=== PATIENT | female | born 1995 | race Two or more races ===

== ENCOUNTER → 2021-12-31 | Outpatient (CLI) | payer BC, SELFPAY ==
[2021-12-31 13:35] LABS: Prolactin 9.4 ng/mL; Thyroid Stim Hormone (TSH) 3.72 uIU/mL (0.358-3.74)
[2022-01-04 19:50] LABS: Testosterone Free 1.2 pg/mL (0.0-4.2)
== END | disposition home or self-care (01) ==
PROVIDERS: Visit Provider Obstetrics & Gynecology
DX: N97.9 Female infertility, unspecified (principal)
CPT/HCPCS: 36415; 82627; 84146; 84402; 84443; 82626

== ENCOUNTER → 2022-01-05 | Outpatient (CLI) | payer SELFPAY, BC ==
--- NOTE | 2022-01-05 15:50 | US_ITS ---
STUDY: ULTRASOUND OF THE FEMALE PELVIS - COMPLETE REASON FOR EXAM: Female, 26 years old. female infertility TECHNIQUE: Endovaginal. Transvaginal US was obtained to better visualized the ovaries. COMPARISON: None. FINDINGS: The uterus is anteverted and is in a midline position. The uterus measures 7 x 4.8 cm. Normal uterine cervix. The endometrium measures 4.2 mm in thickness, and is heterogeneous (striated). There is no demonstrated endometrial mass. There is no demonstrated myometrial mass. I.U.D. - The patient does not have an I.U.D. The right ovary is visualized. The right ovary measures 3.4 x 3.3 cm. There is no right ovarian cyst or ovarian mass. There is no visualized right adnexal mass or complex lesion. There is normal arterial and normal venous vascularity. There are physiologic follicles on the right. The largest measures 10 mm. The left ovary is visualized. The left ovary measures 4.2 x 2.3 cm. There is no left ovarian cyst or ovarian mass. There is no visualized left adnexal mass or complex lesion. There is normal arterial and normal venous vascularity.There are physiologic follicles on the left. There is minimal fluid in the cul-de-sac. Urinary bladder volume is 351 cc. US/Pelvic (Non ) IMPRESSION: There is minimal fluid in the cul-de-sac. There are physiologic follicles of both ovaries. Electronically Signed: Isac Nolan MD at 17:47 EDT ,
--- NOTE | 2022-01-05 15:50 | US_ITS ---
STUDY: ULTRASOUND OF THE FEMALE PELVIS - COMPLETE REASON FOR EXAM: Female, 26 years old. female infertility TECHNIQUE: Endovaginal. Transvaginal US was obtained to better visualized the ovaries. COMPARISON: None. FINDINGS: The uterus is anteverted and is in a midline position. The uterus measures 7 x 4.8 cm. Normal uterine cervix. The endometrium measures 4.2 mm in thickness, and is heterogeneous (striated). There is no demonstrated endometrial mass. There is no demonstrated myometrial mass. I.U.D. - The patient does not have an I.U.D. The right ovary is visualized. The right ovary measures 3.4 x 3.3 cm. There is no right ovarian cyst or ovarian mass. There is no visualized right adnexal mass or complex lesion. There is normal arterial and normal venous vascularity. There are physiologic follicles on the right. The largest measures 10 mm. The left ovary is visualized. The left ovary measures 4.2 x 2.3 cm. There is no left ovarian cyst or ovarian mass. There is no visualized left adnexal mass or complex lesion. There is normal arterial and normal venous vascularity.There are physiologic follicles on the left. There is minimal fluid in the cul-de-sac. Urinary bladder volume is 351 cc. US/Transvaginal Non- IMPRESSION: There is minimal fluid in the cul-de-sac. There are physiologic follicles of both ovaries. Electronically Signed: Isac Nolan MD at 17:47 EDT ,
== END | disposition home or self-care (01) ==
PROVIDERS: Referring Provider Obstetrics & Gynecology; Visit Provider Obstetrics & Gynecology
DX: N97.9 Female infertility, unspecified (principal)
CPT/HCPCS: 76830; 76856

== ENCOUNTER → 2022-09-14 | Outpatient (CLI) | payer BC, SELFPAY ==
[2022-09-21 19:09] LABS: HPV Reflexed? NOT INDICATED
== END | disposition home or self-care (01) ==
PROVIDERS: Visit Provider Registered Nurse
DX: Z12.4 Encounter for screening for malignant neoplasm of cervix (principal)
CPT/HCPCS: 88175; G0145

== ENCOUNTER → 2022-10-30 | Outpatient (CLI) | payer BC, SELFPAY ==
[2022-10-30 12:37] LABS: Amphetamine Urine VISTA NEGATIVE (<1000 ng/mL); Barbiturate Urine VISTA NEGATIVE (< 200 ng/mL); Benzodiazepine Urine VISTA NEGATIVE (< 200 ng/mL); Cocaine Urine VISTA NEGATIVE (< 300 ng/mL); Ecstacy Urine VISTA NEGATIVE (< 500 ng/mL); Methadone Urine VISTA NEGATIVE (< 300 ng/mL); PCP Urine VISTA NEGATIVE (< 25 ng/mL); THC Urine VISTA POSITIVE (< 50 ng/mL); Vista UDS pH Range 7
[2022-10-30 12:39] LABS: Absolute Lymphocyte Count 1.97 X10^3/uL (0.83-4.51); Absolute Neutrophil Count 9.2 X10^3/uL (2.0-7.7); Basophil# 0.05 X10^3/uL; Basophil% 0.4 % (0-1); Eosinophil# 0.22 X10^3/uL; Eosinophils% 1.8 % (0-5); Hematocrit 40.7 % (37-47); Hemoglobin 13.9 g/dL (12.0-15.0); Lymphocyte # 1.97 X10^3/ul (0.83-4.51); Lymphocyte % 16.3 % (19-41); Mean Corp Hgb Conc 34.2 g/dL (32-36); Mean Corpuscular Hgb 30.4 pg (27.0-32.0); Mean Corpuscular Volume 89.1 fL (81-99); Mean Platelet Vol. 9.7 fl (6.2-12.0); Monocyte# 0.59 X10^3/uL; Monocyte% 4.9 % (0-10); NRBC Flagged by Analyzer 0 % (0-5); Neutrophil # 9.21 X10^3/uL (2.7-7.7); Neutrophil % 76.1 % (47-70); Platelet Count 270 K/mm3 (150-450); RBC Distribution Width CV 13.1 % (11.6-14.6); RBC Distribution Width SD 42.8 fl (35.1-43.9); Red Blood Count 4.57 M/mm3 (4.2-5.4); White Blood Count 12.1 K/mm3 (4.4-11.0)
[2022-10-30 13:15] LABS: NATERA MAILED SPECIMEN
[2022-10-30 13:18] LABS: Glucose Challenge Gest 1H 50g 122 mg/dL (70-140)
[2022-10-30 13:49] LABS: HIV - WCH Non-Reactive (Nonreactive); Hepatitis B Surface Antigen Non-Reactive (Nonreactive); Hepatitis C Antibody Non-Reactive (Nonreactive); Rubella IgG Reactive (Nonreactive); Syphilis Antibodies Non-reactive
[2022-11-02 22:06] LABS: Chlamydia By Nucleic Acid AMP Negative (Negative)
[2022-11-03 07:50] LABS: Gonococcus By Nucleic Acid AMP Negative (Negative)
== END | disposition home or self-care (01) ==
PROVIDERS: Referring Provider Obstetrics & Gynecology; Visit Provider Obstetrics & Gynecology
DX: O99.320 Drug use complicating pregnancy, unspecified trimester (principal); F19.90 Other psychoactive substance use, unspecified, uncomplicated
CPT/HCPCS: 36415; 80307; 82950; 85025; 86703; 86762; 86780; 86803; 86850; 86900; 86901; 87086; 87340; 87491; 87591

== ENCOUNTER → 2023-03-05 | Outpatient (CLI) | payer BC, SELFPAY ==
[2023-03-05 13:40] LABS: Absolute Lymphocyte Count 1.66 X10^3/uL (0.83-4.51); Absolute Neutrophil Count 11.3 X10^3/uL (2.0-7.7); Basophil# 0.08 X10^3/uL; Basophil% 0.6 % (0-1); Eosinophil# 0.17 X10^3/uL; Eosinophils% 1.2 % (0-5); Hematocrit 37.1 % (37-47); Hemoglobin 12.4 g/dL (12.0-15.0); Lymphocyte # 1.66 X10^3/ul (0.83-4.51); Lymphocyte % 11.5 % (19-41); Mean Corp Hgb Conc 33.4 g/dL (32-36); Mean Corpuscular Hgb 30.4 pg (27.0-32.0); Mean Corpuscular Volume 90.9 fL (81-99); Monocyte# 0.61 X10^3/uL; Monocyte% 4.2 % (0-10); NRBC Flagged by Analyzer 0 % (0-5); Neutrophil # 11.29 X10^3/uL (2.7-7.7); Neutrophil % 78.5 % (47-70); Platelet Count 235 K/mm3 (150-450); RBC Distribution Width CV 13.4 % (11.6-14.6); RBC Distribution Width SD 44.4 fl (35.1-43.9); Red Blood Count 4.08 M/mm3 (4.2-5.4); White Blood Count 14.4 K/mm3 (4.4-11.0)
[2023-03-05 14:05] LABS: Glucose Challenge Gest 1H 50g 182 mg/dL (70-140)
[2023-03-05 14:45] LABS: HIV - WCH Non-Reactive (Nonreactive); Syphilis Antibodies Non-reactive
== END | disposition home or self-care (01) ==
LOC: LAB 13:07
PROVIDERS: Referring Provider Registered Nurse; Visit Provider Registered Nurse
DX: O09.90 Supervision of high risk pregnancy, unspecified, unspecified trimester (principal); Z3A.00 Weeks of gestation of pregnancy not specified
CPT/HCPCS: 36415; 82950; 85025; 86703; 86780

== ENCOUNTER 2023-04-06 15:30 | Outpatient (RCR) | payer BC, SELFPAY | END 2023-04-17 23:59 | LOC: DC 15:30 | PROVIDERS: Referring Provider Obstetrics & Gynecology; Visit Provider Obstetrics & Gynecology | DX: Z71.3 Dietary counseling and surveillance (principal); O24.419 Gestational diabetes mellitus in pregnancy, unspecified control | CPT/HCPCS: 97802; 97803 ==

== ENCOUNTER → 2023-04-27 | Outpatient (CLI) | payer BC, SELFPAY ==
--- NOTE | 2023-04-27 10:40 | US_ITS ---
STUDY: SECOND AND THIRD TRIMESTER OBSTETRICAL ULTRASOUND - LIMITED REASON FOR EXAM: Female, 27 years old gestational diabetes LMP: 08/16/2022 PRIOR ULTRASOUND: None. TECHNIQUE: Transabdominal TECHNICAL QUALITY: Adequate. FINDINGS: There is a single intrauterine fetus. The fetus is in a cephalic presentation. There is demonstrated cardiac activity with a heart rate of 140 bpm. There is a normal amniotic fluid volume. The largest amniotic fluid pocket measures 8.2 cm. The amniotic fluid index (CARO) is 18.2 cm. The placenta is anterior in location and is not low lying. There are Grade 2 placental changes. The cervix measures 3.8 cm cm in length. BIOMETRY: BPD: 9.0 cm: 36 weeks, 3 days HC: 32.2 cm: 36 weeks, 3 days AC: 32.4 cm: 36 weeks, 2 days FL: 7.1 cm: 36 weeks, 4 days Age by LMP: 36 weeks, 2 days. SARA by LMP: 05/23/2023. age by prior US: weeks, days. SARA by prior US: . age by current US: 36 weeks, 3 days. SARA by current US: 05/22/2023. Estimated weight: 2963 grams, +/- 444 grams, 59 percentile. Gender: US/OB Limited With Biometrics IMPRESSION: Living intrauterine of 36 weeks 3 days as described above. Electronically Signed: Husam Cooney MD at 8:42 EDT ,
== END | disposition home or self-care (01) ==
LOC: US 10:39
PROVIDERS: Referring Provider Obstetrics & Gynecology; Visit Provider Obstetrics & Gynecology
DX: O24.419 Gestational diabetes mellitus in pregnancy, unspecified control (principal)
CPT/HCPCS: 76816

== ENCOUNTER 2023-04-30 11:00 | Outpatient (CLI) | payer BC, SELFPAY ==
[2023-04-30] VITALS (7 sets, daily range): BP systolic 118–137; BP diastolic 75–85; PULSE 91–116; TEMP 36.4–36.8; O2SAT 98–99; BMI 36.1
--- NOTE | 2023-04-30 11:10 | US_ITS ---
INDICATION: non reactive NST in office EXAMINATION: Ultrasound US Biophysical Profile W/O Nonst TECHNIQUE: Transabdominal pelvic ultrasound was performed. COMPARISON: Prior study dated: 04/27/2023 LMP: Unknown. Provided EGA: 05/23/2023 FINDINGS: INTRAUTERINE GESTATION(s): Single. ESTIMATED GESTATIONAL AGE: 36 weeks, 5 days ESTIMATED DUE DATE (SARA): 05/23/2023 HEART MOTION is 144 bpm. AMNIOTIC FLUID INDEX (CARO): 29 cm. Maximal vertical pocket 9.6 cm. BIOPHYSICAL PROFILE (BPP): 02/23 -- Breathin/2. -- Movement: 2/2. -- Tone: 2/2. --CARO: 2/2. PRESENTATION: Cephalic PLACENTA: Anterior. There is no placenta previa or abruption. CERVIX: The cervix is closed. MATERNAL OVARIES: No adnexal masses. FREE FLUID: None. US/Biophysical Prof W/O Non Stres IMPRESSION: Increased volume of amniotic fluid suggestive of polyhydramnios. Normal biophysical profile. Electronically Signed: Jason Nathan MD at 16:47 EDT ,
[2023-04-30] MEDS: Lactated Ringers 1,000 ML 999 ML IV (13:56)
[2023-04-30 15:20] LABS: Group B Strep DNA By PCR Negative (Negative); Internal Control PASS; Probe Check PASS; Specimen Processing Control PASS
--- NOTE | 2023-04-30 15:36 | OB.TRI.PN ---
Progress Notes Date of Service: 04/30/23 Progress Note: Patient presents for triage evaluation secondary to non reactive NST in office FHT: 125 Moderate variability reactive no decelerations category I tracing [place]: mild Contractions vs irritability Assessment and plan: BPP 02/23, Reactive NST, reassuring maternal and status patient discharged to home to follow-up in the office. See problem list details for additional plan information. Laboratory Studies: Laboratory Tests 04/30/23 Range/Units 13:50 Group B Strep DNA Negative (Negative) Specimen Comment Not Reportable Charges/Coding Multi Select Codes Urinary/Genital Urinary/Genital CPT Codes: 93434-67 non-stress test Interp Assessment & Plan (1) Polyhydramnios affecting : COMMENT: CARO 29 on 04/30 (2) Gestational diabetes: QUALIFIERS: Gestational diabetes mellitus control: oral hypoglycemic-controlled Trimester: third trimester Qualified Code(s): O24.415 - Gestational diabetes mellitus in , controlled by oral hypoglycemic drugs COMMENT: started metformin 500mg 31+5w -2xweekly NST deliver at 39. growth US at 36:59% (3) Substance use: COMMENT: THC-early repeat random tox (4) Supervision of high risk , antepartum: COMMENT: PRR SARA 05/30/23, girl, Simon Spouse Hai (5) : QUALIFIERS: Weeks of gestation: 36 weeks Qualified Code(s): Z3A.36 - 36 weeks gestation of COMMENT: Neg GBS, NIPT low risk, carrier and afp declined, + tox for THC,nml anatomy (6) LGSIL (low grade squamous intraepithelial dysplasia): COMMENT: repeat 2021 pap 2020 ASCUS HPV positive (7) Tobacco use: COMMENT: cessation encouraged, down to 2 cig/day.
== END 2023-04-30 16:15 | disposition home or self-care (01) ==
LOC: WPOUT 11:08 → WP 11:08
PROVIDERS: Referring Provider Advanced Practice Midwife; Visit Provider Advanced Practice Midwife
DX: O40.3XX0 Polyhydramnios, third trimester, not applicable or unspecified (principal); O24.415 Gestational diabetes mellitus in pregnancy, controlled by oral hypoglycemic drugs; F17.210 Nicotine dependence, cigarettes, uncomplicated; O99.333 Smoking (tobacco) complicating pregnancy, third trimester; Z3A.36 36 weeks gestation of pregnancy
CPT/HCPCS: 96360; 96361; 59025; 59050; 76819; 87077; 87081; 87086; 87088; 87186; 87653; J7120

== ENCOUNTER 2023-05-17 18:54 | Inpatient (IN) | payer BC, SELFPAY ==
[2023-05-17 19:35] VITALS: BP 152/83; PULSE 93; TEMP 36.7; O2SAT 98
[2023-05-17 19:36] VITALS: BP 137/73; PULSE 105
[2023-05-17] MEDS: Lactated Ringers 1,000 ML 50 ML IV (19:40)
[2023-05-17 19:54] VITALS: BMI 37.7
[2023-05-17 19:55] LABS: Absolute Lymphocyte Count 2.17 X10^3/uL (0.83-4.51); Absolute Neutrophil Count 9.1 X10^3/uL (2.0-7.7); Basophil# 0.04 X10^3/uL; Basophil% 0.3 % (0-1); Eosinophil# 0.12 X10^3/uL; Hematocrit 38.4 % (37-47); Hemoglobin 12.9 g/dL (12.0-15.0); Lymphocyte # 2.17 X10^3/ul (0.83-4.51); Lymphocyte % 17.9 % (19-41); Mean Corp Hgb Conc 33.6 g/dL (32-36); Mean Corpuscular Volume 89.3 fL (81-99); Mean Platelet Vol. 10.4 fl (6.2-12.0); Monocyte# 0.67 X10^3/uL; Monocyte% 5.5 % (0-10); NRBC Flagged by Analyzer 0 % (0-5); Neutrophil # 9.08 X10^3/uL (2.7-7.7); Neutrophil % 74.7 % (47-70); Platelet Count 243 K/mm3 (150-450); RBC Distribution Width SD 45.4 fl (35.1-43.9); White Blood Count 12.2 K/mm3 (4.4-11.0)
[2023-05-17 20:10] LABS: Bedside Glucose 84 mg/dL (74-106)
[2023-05-17] MEDS: miSOPROStol 25 MCG TABLET VAGINAL (20:35)
[2023-05-17] MEDS: Penicillin G Pot 5,000,000 UNITS in 0.9% Normal Saline (100mL MB+) 100 ML 150 UNITS IV (20:43)
[2023-05-17 20:44] LABS: Syphilis Antibodies Non-reactive
[2023-05-17 21:11] LABS: Bedside Glucose 100 mg/dL (74-106)
[2023-05-17 22:05] LABS: Amphetamine Urine VISTA NEGATIVE (<1000 ng/mL); Barbiturate Urine VISTA NEGATIVE (< 200 ng/mL); Benzodiazepine Urine VISTA NEGATIVE (< 200 ng/mL); Cocaine Urine VISTA NEGATIVE (< 300 ng/mL); Ecstacy Urine VISTA NEGATIVE (< 500 ng/mL); Methadone Urine VISTA NEGATIVE (< 300 ng/mL); PCP Urine VISTA NEGATIVE (< 25 ng/mL); THC Urine VISTA NEGATIVE (< 50 ng/mL); Vista UDS pH Range 5
[2023-05-17 23:38] VITALS: BP 117/62; PULSE 81; TEMP 36.5; O2SAT 98
[2023-05-18] VITALS (32 sets, daily range): BP systolic 100–175; BP diastolic 59–97; PULSE 65–131; TEMP 36.5–36.8; O2SAT 98–100
--- NOTE | 2023-05-18 | PLAC_PTH ---
PATIENT: ARIANNA KERR LOC: WP U#:[id number] AGE/SX: 27/F ROOM: [facility] RE05/17/[address]: Dr. Gilma Irene MD : 1995 BED: 1 DIS: 05/20/2023 SPEC #: [id number] RECD: 05/19/23 10:20 STATUS: BRIGETTE RELena #: [id number] ANUSHKA: 05/18/23 00:[address]: Gilma Irene DEPT: SURGICAL PATHOLOGY RECD BY: Rogelio Garcia ENTERED: 05/19/23 10:21 SP TYPE: PLACENTA OTHR DR: No Primary Care Phys Tissues: Placenta, NOS Procedures: Surgery Specimen Level V HEADER OPERATION: Primary section PRE-OP DIAGNOSIS: intolerance TISSUE SUBMITTED: Placenta MICROSCOPIC DIAGNOSIS Banda placenta (446 gm): Umbilical cord - trivascular with no inflammation. Placental membranes - mild chronic decidual inflammation. Placental disc - Rosemary-Javier change, increased intraparenchymal fibrin plaques and microcalcifications. AM:tiffany 05/21/2023 MICROSCOPIC DESCRIPTION Slides are reviewed. GROSS DESCRIPTION SPECIMEN: PLACENTA / CLINICAL INFORMATION: A. Weight: 3.085 kg B. Gestational Age: 39.2 weeks C. Sex: Female PLACENTAL WEIGHT (POST FIXATION): 446 gm PLACENTAL DIMENSIONS: 19.0 x 17.0 x 3.0 cm PLACENTAL SHAPE: Usual ovoid PLACENTAL WEIGHT FOR GESTATIONAL AGE: Within 10-99th percentile MEMBRANES - Present A. Insertion: Marginal B. Site of rupture from edge: At edge of placental disc C. Color of membrane: De Leon-packer D. Abnormalities: None UMBILICAL CORD - Present A. Color: De Leon-packer B. Insertion: Eccentric C. Length: 28.0 cm D. Diameter: 1.5 cm E. Number of vessels: Three F. Abnormalities: None PLACENTAL DISC - Present A. Color of surface: De Leon-packer B. surface abnormalities: None C. Maternal cotyledons: Intact with minimal tears D. Attached retro placental clot: No clot E. Cut surface: Dark red and spongy F. Lesions: None G. Separate clot: Absent SECTIONS SUBMITTED: 1. Umbilical cord ( end notched) 2. Umbilical cord, placental end 3. Membrane roll 4. Placental disc, and maternal surfaces 5. Placental disc, and maternal surfaces 6. Placental disc, and maternal surfaces AM:tiffany 05/20/2023 TC:3 CPT: 04451
[2023-05-18] MEDS: Penicillin G 3,000,000 Units 50 ML 100 UNITS IV ×6 (00:50→21:10)
[2023-05-18] MEDS: miSOPROStol 25 MCG TABLET VAGINAL ×2 (00:50→04:58)
[2023-05-18 02:09] LABS: Bedside Glucose 81 mg/dL (74-106)
[2023-05-18 05:20] LABS: Bedside Glucose 76 mg/dL (74-106)
[2023-05-18] MEDS: LACTATED RINGERS 500 ML 999 ML IV ×3 (05:45→16:20)
--- NOTE | 2023-05-18 08:12 | HP.PCM.OB_ITS ---
HPI - General General Date of Admission: 05/17/23 Date of Service: 05/17/23 HPI Narrative ARIANNA KERR, is a 27 F at 39.1 weeks who presents for IOL for gestational diabetes. Glucose well controlled with metformin Maternal Data Information SARA Calculator Estimated Delivery Date Method Current WG Current Estimate 05/23/23 Ultrasound #1 39w 2d Other Estimates 05/30/23 LMP (Certain) 38w 2d Final SARA: 05/23/23 Final SARA Source: US >20 weeks Gestational age: 39.1 weeks 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 Gestational diabetes Hirsutism LGSIL (low grade squamous intraepithelial dysplasia) Polyhydramnios affecting Tobacco use Home Medications docosahexaenoic acid 200 mg capsule ( DHA) 200 mg PO DAILY 10/16/22 [History Last Taken 05/17/23 07:00 200 mg] blood sugar diagnostic (Blood Glucose Test strips) #120 ea 03/05/23 [Rx Last Taken Unknown] blood-glucose meter #1 ea 03/05/23 [Rx Last Taken Unknown] lancets #200 ea 03/05/23 [Rx Last Taken Unknown] metformin 500 mg tablet 500 mg PO DAILY gestational diabetes #30 tabs 04/23/23 [Rx Last Taken 05/16/23 19:00 500 mg] omeprazole 20 mg capsule,delayed release 20 mg PO DAILY indigestion 05/17/23 [History Last Taken 05/17/23 07:54 20 mg] Allergy/AdvReac Type Severity Reaction Status Date / Time No Known Allergies Allergy Verified 05/17/23 19:48 Surgical History History of right knee surgery Social History adopted: No household members: spouse housing: house current occupational status: employed current occupation: [employer] pets and animals: Yes ( doing litter) pets and animals: cat(s) and fish history of recent travel: No sexually active: Yes Smoking Status: Current some day smoker alcohol intake: never substance use type: marijuana caffeine: Yes seatbelt use: always do you feel safe at home: Yes additional social history: Bernadette work at [employer] History 1 Elective abortions Hx Para 0 Spontaneous abortions Hx # Term Pregnancies Ectopic pregnancies Hx # Pregnancies Multiple births # of living children Visit Details Expected Delivery Route/Plan Labor Preferences- CB/BF classes: encouraged labor support person: Hai labor intervention preferences: none pain management options preferred: epidural cut cord/dad catch: yes : yes PP control planned: nfp discussed possible routes of delivery and associated risks: [] special requests: [] Plans Covid status: discussed Flu vaccine: discussed Tdap vaccine: declined Rhogam: na LARC form signed: completed. movement and labor precautions reviewed. Problem list reviewed and updated with the most current plan of care details and appropriate orders placed. Relevant counseling for the gestational age provided. Continue routine care and follow up unless otherwise noted in visit notes/problem list details OB Flowsheet Initial Weight: Not Recorded Date -?-?-?-?-?-?-?-?-?-?-?-?- EGA Weight BP Urine Prot -?-?-?-?-?-?-?-?-?-?-?-?- Glucose FHR FuHt Pres Dilation -?-?-?-?-?-?-?-?-?-?-?-?- Effaced St Visit Note 10/30/22 -?-?-?-?-?-?-?-?-?-?-?-?- 10w 5d 214 lb 132/88 -?-?-?-?-?-?-?-?-?-?-?-?- 180 -?-?-?-?-?-?-?-?-?-?-?-?- JV- single live IUP measuring 10 weeks 5 days (7 days off from LMP) desires NIPT 11/26/22 -?-?-?-?-?-?-?-?-?-?-?-?- 14w 4d 215 lb 127/80 Negative -?-?-?-?-?-?-?-?-?-?-?-?- Negative 165 -?-?-?-?-?-?-?-?-?-?-?-?- LC- doing well. labs normal. no vb/cramping. anatomy ordered. 01/04/23 -?-?-?-?-?--?-?-?-?-?-?-?- 20w 1d 217 lb 6 oz 122/81 Nega tive -?-?-?-?-?-?-?-?-?-?-?-?- Negative 150 -?-?-?-?-?-?-?-?-?-?-?-?- SM- no vb lof cr amping 02/04/23 -?-?-?-?-?-?-?-?-?-?-?-?- 24w 4d 223 lb 119/75 1+ -?-?-?-?-?-?-?-?-?-?-?-?- Negative 150 -?-?-?-?-?-?-?-?-?-?-?-?- LC- no vb/ctx/lo f. 28 week labs ordered. no concerns. 03/05/23 -?-?-?-?-?-?-?-?-?-?-?-?- 28w 5d 225 lb 8 oz 111/72 Nega tive -?-?-?-?-?-?-?-?-?-?-?-?- Negative 155 -?-?-?-?-?-?-?-?-?-?-?-?- JV- pt was told today that she has GDM. instructions on monitoring given. rto in one week with glucose log. 03/19/23 -?-?-?-?-?-?-?-?-?-?-?-?- 30w 5d 225 lb 4 oz 128/80 Nega tive -?-?-?-?-?-?-?-?-?-?-?-?- Negative 140 30 -?-?-?-?-?-?-?-?-?-?-?-?- LC- x3 elevated fasting glucose. awaiting nutrition consult. diet reviewed. if fastings continue to be elevated in 1 week to rto for medication management. 03/26/23 -?-?-?-?-?-?-?-?-?-?-?-?- 31w 5d Negative -?-?-?-?-?-?-?-?-?-?-?-?- Negative 140 -?-?-?-?-?-?-?-?-?-?-?-?- LC- here to disc uss glucose. 10 fasting above 95. consulted with PRAVEENA agrees to add Metformin 500mg. 03/29/23 -?-?-?-?-?-?-?-?-?-?-?-?- 32w 1d 223 lb 112/69 Trace -?-?-?-?-?-?-?-?-?-?-?-?- Negative 140 32 -?-?-?-?-?-?-?-?-?-?-?-?- LC- no vb/ctx/lo f. good fm. fastings all under 95. pp elevated x1 after pasta lunch. has dental assistant appt tomorrow. reviewed alternatives. nst reactive toda y. 04/02/23 -?-?-?-?-?-?-?-?-?-?-?-?- 32w 5d 221 lb 4 oz 123/80 -?-?-?-?-?-?-?-?-?-?-?-?- 130 -?-?-?-?-?-?-?-?-?-?-?-?- LC- no vb/ctx/lo f. good fm. all fasting/pp under parameters since drum puller counseling. 04/06/23 -?-?-?-?-?-?-?-?-?-?-?-?- 33w 2d 223 lb 8 oz 132/83 Trac e -?-?-?-?-?-?-?-?-?-?--?-?- Negative 140 -?-?-?-?-?-?-?-?-?-?-?-?- MH-NST only reac tive. Reviewed glucose readings and all well controlled 04/09/23 -?-?-?-?-?-?-?-?-?-?-?--?- 33w 5d 223 lb 132/83 Negative -?-?-?-?-?-?-?-?-?-?-?-?- Negative 140 -?-?-?-?-?-?-?-?-?-?-?-?- SM- BS well cont rolled, NST reactive, US at 36 weeks 04/13/23 -?-?-?-?-?-?-?-?-?-?-?-?- 34w 2d 221 lb 8 oz 117/76 -?-?-?-?-?-?-?-?-?-?-?-?- 140 -?-?-?-?-?-?-?-?-?-?-?-?- SM- no vb lof go od fm no regular ctx BS controlled 04/19/23 -?-?-?-?-?-?-?-?-?-?-?-?- 35w 1d 220 lb 4 oz 130/74 Nega tive -?-?-?-?-?-?-?-?-?-?-?-?- Negative 140 -?-?-?-?-?-?-?-?-?-?-?-?- MH-NST only reac tive. Will sched 36 wk growth US next week 04/23/23 -?-?-?-?-?-?-?-?-?-?-?-?- 35w 5d 221 lb 120/64 Negative -?-?-?-?-?-?-?-?-?-?-?-?- Negative 135 -?-?-?-?-?-?-?-?-?-?-?-?- KW--NST only. re active 04/30/23 -?-?-?-?-?-?-?-?-?-?-?-?- 36w 5d 223 lb 8 oz 110/68 Nega tive -?-?-?-?-?-?-?-?-?-?-?-?- Negative -?-?-?-?-?-?-?-?-?-?-?-?- non reactive nst to l and d for extended monitoring and bpp 05/04/23 -?-?-?-?-?-?-?-?-?-?-?-?- 37w 2d 223 lb 118/80 Trace -?-?-?-?-?-?-?-?-?-?-?-?- Negative 140 -?-?-?-?-?--?-?-?-?-?-?-?- JV- reactive NST today. no complaints. plan for 39 week IOL. will perform cervical exam on wednesday when returns. Plan for Wednesday the or wednesday the for cervical ripening. 05/07/23 -?-?-?-?-?-?-?-?-?-?-?-?- 37w 5d 222 lb 6 oz 130/83 Nega tive -?-?-?-?-?-?-?-?-?-?-?-?- Negative 130 37 Cephalic 0 -?-?-?-?-?-?-?-?-?-?-?-?- 50 -3 JV- reacti ve nst. plan is for 39 week IOL, cervical ripening will be needed wednesday05/11/23 -?-?-?-?-?-?-?-?-?-?-?-?- 38w 2d 222 lb 8 oz 132/87 Nega tive -?-?-?-?-?-?-?-?-?-?-?-?- Negative 130 -?-?-?-?-?-?-?-?-?-?-?-?- SM no vb lof goo d fm no ergular ctx bs controlled 05/14/23 -?-?-?-?-?-?-?-?-?-?-?-?- 38w 5d 224 lb 126/85 Negative -?-?-?-?-?-?-?-?-?-?-?-?- Negative 130 -?-?-?-?-?-?-?-?-?-?-?-?- JV- nst reactive . plan for IOL wednesday night NST FHR Rate Baby A Baseline: 125 Variability:: Moderate Accelerations:: 15 x 15 Decelerations:: None NST Reactive:: Yes FHR Category:: Category I Uterine Activity:: irregular ROS Constitutional Constitutional: Denies change in weight, fatigue, fever(s), headache(s), poor appetite or weakness Eyes Eyes: Denies blurry vision, change in vision, floaters, seeing flashes or spots in vision ENT HEENT: Denies dizziness, headache(s), loss taste/smell or sore throat Cardiovascular Cardiovascular: Denies chest pain, dizziness, dyspnea, irregular heart rhythm, lightheadedness, palpitations or rapid heart rate Respiratory/Chest Respiratory/Chest: Denies change in mental status, chest tightness, cough, dyspnea or breast pain Gastrointestinal Gastrointestinal: Denies anorexia, chewing difficulty, constipation, diarrhea or weight changes Genitourinary Genitourinary: Denies difficulty urinating, dysuria, flank pain, genital pain, urinary frequency or urinary urgency Musculoskeletal Musculoskeletal: Denies back pain, difficulty walking, extremity pain, joint pain, muscle cramps or muscle weakness Integumentary Integumentary: Denies lesions or unusual bruising Neurologic Neurologic: Denies abnormal movements, abnormal speech, dizziness, numbness, seizure-like activity, syncope or weakness Psychiatric Psychiatric: Denies behavioral changes, change in appetite, confusion, depression, homicidal ideation, suicidal ideation or suicidal thoughts Endocrine Endocrinology: Denies excessive sweating, polydipsia or polyuria Hematologic/Lymphatic Hematologic/Lymphatic: Denies anemia Allergic/Immunologic Allergic/Immunologic: Denies itchy eyes, lip swelling, throat swelling, tongue swelling or wheezing Vital Signs Vital Signs Vital Signs: 05/17/23 19:35 05/17/23 19:35 05/17/23 19:36 Temperature Temperature Source Pulse Rate 93 Blood Pressure 152/83 H 137/73 H BP Systolic 152 137 BP Diastolic 83 73 Pulse Ox 05/17/23 19:36 05/17/23 19:35 05/17/23 19:35 Temperature Temperature Source Temporal Pulse Rate 105 H Blood Pressure BP Systolic BP Diastolic Pulse Ox 98 05/17/23 19:35 05/17/23 23:38 05/17/23 23:38 Temperature 98.1 F Temperature Source Pulse Rate 81 Blood Pressure 117/62 BP Systolic 117 BP Diastolic 62 Pulse Ox 05/17/23 23:38 05/17/23 23:38 05/17/23 23:38 Temperature 97.7 F L Temperature Source Temporal Pulse Rate Blood Pressure BP Systolic BP Diastolic Pulse Ox 98 05/18/23 03:37 05/18/23 03:37 05/18/23 03:36 Temperature Temperature Source Temporal Pulse Rate 70 Blood Pressure 108/62 BP Systolic 108 BP Diastolic 62 Pulse Ox 05/18/23 03:36 05/18/23 03:36 05/18/23 03:36 Temperature 97.7 F L Temperature Source Temporal Pulse Rate Blood Pressure BP Systolic BP Diastolic Pulse Ox 98 05/18/23 03:36 05/18/23 08:00 05/18/23 08:00 Temperature 97.7 F L Temperature Source Pulse Rate 77 Blood Pressure 121/72 H BP Systolic 121 BP Diastolic 72 Pulse Ox Weight Weight: 226 lb 13.69 oz Body Mass Index (BMI) 37.7 Physical Exam Const alert, oriented x3 and no apparent distress General Appearance: cooperative Orientation / Consciousness: awake HEENT normocephalic Neck full ROM Lymph Lymphatic: no lymphadenopathy noted Chest inspection of chest normal Resp normal respiratory effort and normal air movement Effort and Inspection: able to speak in complete sentences and symmetric chest movement GI soft to palpation and non-tender Inspection: gravid Palpation: soft; Negative for tender external exam normal Back/Spine normal to inspection Extremity normal to inspection and full ROM Skin no rashes or lesions noted Psych mental status grossly normal Appearance: grossly normal Speech: normal speech Labs Labs Labs: Blood Type A POSITIVE Antibody Screen NEGATIVE Hct 38.4 % (37-47) Hgb 12.9 g/dL (12.0-15.0) Pap Smear Negative Obstetrics Ultrasound Syphilis Total Ab Non-reactive Rubella IgG Antibody Reactive (Nonreactive) Hep Bs Antigen Non-Reactive (Nonreactive) Hepatitis C Antibody Non-Reactive (Nonreactive) Chlamydia DNA (LEO) Negative (Negative) N.gonorrhoeae DNA (LEO) Negative (Negative) HIV 1&2 Antibody Non-Reactive (Nonreactive) Glucose 1 Hr 50 gm 182 mg/dL (70-140) H Group B Strep DNA Negative (Negative) Miscellaneous Test Assessment & Plan (1) Tobacco use: COMMENT: cessation encouraged, down to 2 cig/day. (2) LGSIL (low grade squamous intraepithelial dysplasia): COMMENT: repeat 2021 pap 2020 ASCUS HPV positive (3) Gestational diabetes: QUALIFIERS: Gestational diabetes mellitus control: oral hypoglycemic-controlled Trimester: third trimester Qualified Code(s): O24.415 - Gestational diabetes mellitus in , controlled by oral hypoglycemic drugs COMMENT: started metformin 500mg 31+5w -2xweekly NST deliver at 39. growth US at 36:59% (4) Polyhydramnios affecting : COMMENT: CARO 29 on 04/30 (5) Positive GBS test: COMMENT: treat in labor (6) Substance use: COMMENT: THC-early repeat random tox (7) Supervision of high risk , antepartum: COMMENT: PRR SARA 05/30/23, girl, Simon Spouse Hai (8) : QUALIFIERS: Weeks of gestation: 38 weeks Qualified Code(s): Z3A.38 - 38 weeks gestation of COMMENT: + GBS, NIPT low risk, carrier and afp declined, + tox for THC,nml anatomy (9) Encounter for induction of labor: COMMENT: cytotec, GDM PLAN: Patient presents IOL, plan management for with pitocin/AROM. Pain management: plans epidural. GBS positive. Management of any complications: GDM I have reviewed the [facility] and made any clinically relevant updates. Charges/Coding Multi Select Codes Urinary/Genital Urinary/Genital CPT Codes: No Charge
[2023-05-18] MEDS: 0.9% Normal Saline Single 100 ML IV.SOLN. INTRA-UTER (09:07)
[2023-05-18] MEDS: CHLORHEXIDINE GLUC 2% CLOTH 1 EACH TOWELETTE TOPICAL (09:07)
[2023-05-18 09:35] LABS: Bedside Glucose 81 mg/dL (74-106)
[2023-05-18] MEDS: Oxytocin 15 Units/NS 250ml 15 UNITS/250 ML IV.SOLN 2 UNITS IV (10:23)
--- NOTE | 2023-05-18 11:38 | PN_ITS ---
Progress Note Coping well with contractions recommended epidural if desired prior to AROM current tracing: FHT: 135 Moderate variability reactive no decelerations category I tracing [place]: 1.5-30 Contractions Membranes: intact SVE: 7/70/-2 A/P: Continue with position changes Titrate pitocin per protocol Requested epidural per anesthesia, bolus started Plan AROM once comfortable with epidural PCN for GBS prophylaxis Anticipate Dr Irene aware of plan and agrees with plan of care Assessment & Plan Assessment/Plan (1) Encounter for induction of labor: (2) Gestational diabetes: QUALIFIERS: Gestational diabetes mellitus control: oral hypoglycemic-controlled Trimester: third trimester Qualified Code(s): O24.415 - Gestational diabetes mellitus in , controlled by oral hypoglycemic drugs (3) Polyhydramnios affecting : (4) Positive GBS test: (5) Non-reactive NST (non-stress test): (6) Substance use: (7) Supervision of high risk , antepartum: (8) : QUALIFIERS: Weeks of gestation: 38 weeks Qualified Code(s): Z3A.38 - 38 weeks gestation of Multi Select Codes Urinary/Genital Urinary/Genital CPT Codes: No Charge
[2023-05-18] MEDS: fentaNYL-bupivacaine (epidural) 100 ML BAG EPIDURAL ×3 (12:04→22:49)
[2023-05-18] MEDS: Lactated Ringers 1,000 ML 200 ML IV ×2 (13:01→20:15)
[2023-05-18 13:26] LABS: Bedside Glucose 84 mg/dL (74-106)
[2023-05-18 14:22] LABS: Bedside Glucose 75 mg/dL (74-106)
[2023-05-18 15:17] LABS: Bedside Glucose 71 mg/dL (74-106)
--- NOTE | 2023-05-18 15:52 | PCM.PN.BLA ---
Progress Note Coping well with contractions [comfortable with epidural] current tracing: FHT: 140 Moderate variability reactive prolonged decelerations that recovered after urinary cath, position changes, and placement of internal monitors, category II tracing. Overall reassuring [place]: 2 minute Contractions Membranes: ruptured SVE:/-2 reviewed tracing abnormalities since last note: A/P: Continue with position changes Titrate pitocin per protocol Epidural per anesthesia PCN for GBS prophylaxis Anticipate Dr Irene aware of plan and agrees with plan of care Assessment & Plan Assessment/Plan (1) Encounter for induction of labor: (2) Tobacco use: (3) LGSIL (low grade squamous intraepithelial dysplasia): (4) Gestational diabetes: QUALIFIERS: Gestational diabetes mellitus control: oral hypoglycemic-controlled Trimester: third trimester Qualified Code(s): O24.415 - Gestational diabetes mellitus in , controlled by oral hypoglycemic drugs (5) Polyhydramnios affecting : (6) Positive GBS test: (7) Non-reactive NST (non-stress test): (8) Substance use: (9) Supervision of high risk , antepartum: (10) : QUALIFIERS: Weeks of gestation: 38 weeks Qualified Code(s): Z3A.38 - 38 weeks gestation of Multi Select Codes Urinary/Genital Urinary/Genital CPT Codes: No Charge
[2023-05-18 16:27] LABS: Bedside Glucose 66 mg/dL (74-106)
[2023-05-18 17:28] LABS: Bedside Glucose 71 mg/dL (74-106)
[2023-05-18 18:30] LABS: Bedside Glucose 77 mg/dL (74-106)
[2023-05-18 20:44] LABS: Bedside Glucose 71 mg/dL (74-106)
[2023-05-18 21:29] LABS: Bedside Glucose 74 mg/dL (74-106)
[2023-05-18] MEDS: Amnioinfusion- 0.9% NS 1,000 ML IV.SOLN. 1000 ML INTRA-UTER (22:20)
--- NOTE | 2023-05-18 22:49 | PCM.PN.BLA ---
Progress Note comfortable with epidural current tracing: FHT: 135 Moderate variability reactive category II tracing [place]: 3-5 minute Contractions Membranes: ruptured SVE: /1 reviewed tracing abnormalities since last note: recurrent variables and occasional prolonged decelerations. Pitocin was turned off, IV fluid bolus given, patient to hands and knees, amnioinfusion started. Dr Irene contacted and she reviewed strip from home. improvement after starting amnioinfusion but she is coming in to evaluate. A/P: Continue with position changes Titrate pitocin per protocol Epidural per anesthesia PCN for GBS prophylaxis Anticipate vs P C/S Dr Irene aware of plan and agrees with plan of care Assessment & Plan Assessment/Plan (1) Encounter for induction of labor: (2) Tobacco use: (3) Gestational diabetes: QUALIFIERS: Gestational diabetes mellitus control: oral hypoglycemic-controlled Trimester: third trimester Qualified Code(s): O24.415 - Gestational diabetes mellitus in , controlled by oral hypoglycemic drugs (4) LGSIL (low grade squamous intraepithelial dysplasia): (5) Polyhydramnios affecting : (6) Positive GBS test: (7) Non-reactive NST (non-stress test): (8) Substance use: (9) Supervision of high risk , antepartum: (10) : QUALIFIERS: Weeks of gestation: 38 weeks Qualified Code(s): Z3A.38 - 38 weeks gestation of Multi Select Codes Urinary/Genital Urinary/Genital CPT Codes: No Charge
--- NOTE | 2023-05-18 23:07 | EX.PCM.OBRPT ---
Assessment & Plan (1) Variable heart rate decelerations, antepartum: (2) Arrest of dilation, delivered, current hospitalization: (3) Encounter for induction of labor: COMMENT: cytotec, GDM (4) Tobacco use: COMMENT: cessation encouraged, down to 2 cig/day. (5) LGSIL (low grade squamous intraepithelial dysplasia): COMMENT: repeat 2021 pap 2019 ASCUS HPV positive (6) Gestational diabetes: QUALIFIERS: Gestational diabetes mellitus control: oral hypoglycemic-controlled Trimester: third trimester Qualified Code(s): O24.415 - Gestational diabetes mellitus in , controlled by oral hypoglycemic drugs COMMENT: started metformin 500mg 31+5w -2xweekly NST deliver at 39. growth US at 36:59% (7) Polyhydramnios affecting : COMMENT: CARO 27 on 04/30 (8) Positive GBS test: COMMENT: treat in labor (9) Substance use: COMMENT: THC-early repeat random tox (10) Supervision of high risk , antepartum: COMMENT: PRR SARA 05/30/23, girl, Simon Spouse Hai (11) : QUALIFIERS: Weeks of gestation: 38 weeks Qualified Code(s): Z3A.38 - 38 weeks gestation of COMMENT: + GBS, NIPT low risk, carrier and afp declined, + tox for THC,nml anatomy Maternal Data Information SARA Calculator Estimated Delivery Date Method Current WG Current Estimate 05/23/23 Ultrasound #1 39w 3d Other Estimates 05/30/23 LMP (Certain) 38w 3d Final SARA Source: LMP Gestational age: 39 Details Operative Information Pre-Operative Diagnosis: see a/p diagnoses Post-Operative Diagnosis: same Indications Narrative: surgeon: Gilma Irene MD Procedure Type: low transverse Type of Anesthesia: Epidural Special Medications: none Drain: Agrawal to straight drain Fluids Replaced: crystalloid Findings Description of Procedure: The patient was induced for polyhydramnios and diabetes with an estimated weight of 2990 g, diabetes controlled with 500 mg of metformin once daily. Patient underwent Cytotec followed by Agrawal bulb and Pitocin. Patient may change to 6 cm. She then may change to 7 cm and then regressed back to 6. Overall no cervical change for 11 hours with adequate contractions over 200 [place] units for at least several hours of the labor, and she developed recurrent variable decelerations despite position changes and amnioinfusion. Positive scalp stimulation and moderate variability and accelerations were present however due to the arrest of dilation and the recurrent variable decelerations the decision was made to proceed with primary low-transverse due to recurrent decels as well as arrest of dilation. The patient was placed in the dorsal supine position with leftward tilt. Patient was prepped and draped in the normal sterile fashion. Pfannenstiel skin incision was made with the scalpel and carried through to the underlying layer of fascia with the scalpel. Fascia was nicked in the midline and the incision extended laterally. The rectus bellies were dissected off superiorly and inferiorly with out complication both sharply and bluntly. The peritoneum was entered digitally. The incision was stretched and a low transverse uterine incision was made with the scalpel. The 's head was delivered atraumatically followed by the anterior and posterior shoulders without complication the rest of the delivered. The cord was clamped and cut and the infant was handed off to awaiting nurse. The placenta was delivered spontaneously immediately following and was noted to be intact and have a three-vessel cord. The uterus was exteriorized cleared of all clots and debris, and the incision was closed in a double layer closure using #1 Monocryl. The ovaries and fallopian tubes were noted to be within normal limits. The uterus was returned to the maternal abdomen and gutters were cleared of all clots and debris. The peritoneum was closed with 3-0 Monocryl in a running fashion. Fascia was closed with 0 PDS in a running fashion. Subcutaneous tissue was copiously irrigated and the skin was closed with 3-0 Monocryl in a subcuticular fashion. Mepilex dressing was applied without complication. Patient was taken to recovery in stable condition. It was discussed with the patient that based on the clinical information obtained during this encounter, combined with her history, at this time I would likely recommend cesareans for future deliveries if further pregnancies are desired unless spontaneous labor before 39 weeks with a small EFW. Placental Delivery Description: Spontaneous Placenta Disposition: [facility] Cord Vessel Description: 3 Vessels Delayed Cord Clamping: Yes Complications Risks of Surgery Discussed w/Patient: Bleeding, Infection, Need for Future C-Sections and Injury to surrounding structure(s) including bowel and bladder Complications: none Admit VTE Documentation VTE Present on Admission: No VTE Mechan Device Prophylaxis: SCD's Procedures Urinary/Genital 52xxx-59xxx: [id number] Delivery [facility] [place] pkg
[2023-05-18] MEDS: Cefazolin 2 GM in 0.9% Normal Saline (100mL Bag) 100 ML IV (23:13)
[2023-05-18] MEDS: Azithromycin 500 MG in Dextrose 5%-Water (250mL Bag) 250 ML 250 MG IV (23:22)
[2023-05-19] VITALS (26 sets, daily range): BP systolic 91–145; BP diastolic 54–95; PULSE 65–105; RESP 14–20; TEMP 36.3–37.7; O2SAT 95–99
--- NOTE | 2023-05-19 00:06 | DCINST_ITS ---
Discharge Instructions Diet Discharge Diet: No restrictions Activity Discharge Activity: May Not Drive (for 2 weeks or while taking narcotic pain medications.), May Shower and May Take a Tub Bath (in 7 days) May shower in (days): 0 May resume sexual activity in: 4-6 weeks Weight Bearing Status: Full weight bearing Lifting Restrictions: 20 pounds Dressing / Incision Call your doctor if your incision/area has: Continuous Slow Oozing, Sudden Increased Bleeding, Increased Pain/ Swelling, Increased Redness and Foul Smelling Discharge Call your doctor if you observe: Fever of 101 or Higher and Using more than 1 pad per hour (for 2 hours) Suture Line Care: Avoid Pulling/Pushing and Avoid Pinching/Bending Cleanse incision/area with: Soap & Water and Keep Dressing Clean & Dry Follow Up Care Please Follow Up With: Gilma Irene MD When: Call [phone] to make an appointment for an incision check in 1-2 weeks. Test Results: Test results from this visit will be discussed in further detail at your follow- up appointment, if applicable. Discharge Plan Admission Admit Date/Time: 05/17/23 18:54 Attending Provider: Gilma Irene Primary Care Provider: Care PhysicianYani Primary Discharge Orders/Prescriptions Prescriptions: New oxycodone-acetaminophen [Percocet] 5-325 mg tablet 1 tab PO Q6H PRN (Reason: pain) 7 Days Qty: 20 0RF naproxen [naproxen] 500 mg tablet 500 mg PO BID PRN PRN (Reason: Pain) Qty: 30 1RF No Action DHA 200 mg capsule 200 mg PO DAILY metformin 500 mg tablet 500 mg PO DAILY Qty: 30 0RF omeprazole 20 mg capsule,delayed release(DR/EC) 20 mg PO DAILY (DME) blood-glucose meter Misc See Rx Instructions .MEDSUPPLY Qty: 1 0RF Rx Instructions: As directed- Test fasting and 2 hours after meals (DME) lancets Misc See Rx Instructions .MEDSUPPLY Qty: 200 8RF Rx Instructions: As directed- fasting & 2 HR post meals (DME) Blood Glucose Test Strip See Rx Instructions .Route Qty: 120 8RF Rx Instructions: As directed- fasting and 2 hours post meals Referrals / Follow Up: Care Physician,No Primary [Primary Care Provider] - Disposition Disposition (needs filled in before D/C Order can be placed): Home, Self Care
[2023-05-19] MEDS: Oxytocin 15 Units/NS 250ml 15 UNITS/250 ML IV.SOLN 83 UNITS IV (00:30)
[2023-05-19] MEDS: Ketorolac 30 MG/ML Syringe IV ×4 (00:41→17:34)
[2023-05-19] MEDS: Acetaminophen 500 MG Tablet 1000 MG PO ×4 (00:41→17:34)
[2023-05-19] MEDS: Lactated Ringers 1,000 ML 100 ML IV (00:43)
[2023-05-19 01:06] LABS: Bedside Glucose 96 mg/dL (74-106)
[2023-05-19 01:06] LABS: Bedside Glucose 73 mg/dL (74-106)
[2023-05-19 03:21] LABS: Pathology Specimen OB SEE PATHOLOGY REPORT
--- NOTE | 2023-05-19 05:48 | CPS ---
RT went over IS with Patient, Patient busy with baby at this time
--- NOTE | 2023-05-19 07:49 | PCM.PN.OB ---
Subjective Subjective Patient doing well without complaints. Tolerating PO. Agrawal cath still in place. Feeding well. Denies chest pain, shortness of breath, calf pain/swelling, fevers, chills, lightheadedness. Objective Data Objective Data Vital Signs: Vital Signs Temp Pulse Resp BP Pulse Ox O2 Del Method 99.1 F 72 16 118/72 97 Room Air 05/19/23 02:19 05/19/23 06:15 05/19/23 06:15 05/19/23 06:15 05/19/23 06:15 05/19/23 06:15 Oxygen Delivery Method Room Air Weight: 226 lb 13.69 oz Body Mass Index (BMI) 37.7 Intake & Output: Intake and Output for Last 24 Hours 05/17/23 05/18/23 05/19/23 23:59 23:59 23:59 Intake Total 105 / 105 4693.63 / 4693.63 1398.33 / 1398.33 Output Total 350 / 350 2925 / 2925 1700 / 1700 Balance -245 / -245 1768.63 / 1768.63 -301.67 / -301.67 Lab / Micro Data 05/17/23 19:40 Labs: Laboratory Results - last 24 hr 05/18/23 09:11: POC Glucose 81 05/18/23 13:07: POC Glucose 84 05/18/23 14:03: POC Glucose 75 05/18/23 14:57: POC Glucose 71 L 05/18/23 16:05: POC Glucose 66 L 05/18/23 17:04: POC Glucose 71 L 05/18/23 18:12: POC Glucose 77 05/18/23 20:14: POC Glucose 71 L 05/18/23 21:09: POC Glucose 74 05/18/23 22:43: POC Glucose 73 L 05/19/23 00:45: POC Glucose 96 Physical Exam Const alert and oriented x3 HEENT normocephalic Eyes PERRL Neck full ROM Resp normal respiratory effort GI soft to palpation GI Narrative: FF below U. Dressing dry and intact Palpation: tender other (appropriately) Assessment & Plan (1) delivery delivered: COMMENT: SM LTCS AOD 6 cm and recurrent variables girl Simon GDMA2 (2) Gestational diabetes: QUALIFIERS: Gestational diabetes mellitus control: oral hypoglycemic-controlled Trimester: third trimester Qualified Code(s): O24.415 - Gestational diabetes mellitus in , controlled by oral hypoglycemic drugs COMMENT: started metformin 500mg 31+5w -2xweekly NST deliver at 39. growth US at 36:59% PLAN: Plan s/p LTCS PPD # 1 1. routine post care 2. breast feeding- support given 3. rh positive 4. rubella immune 5. glucose stable
[2023-05-19 08:51] LABS: Bedside Glucose 73 mg/dL (74-106)
[2023-05-19] MEDS: Senna/Docusate Sodium 1 Tablet PO (08:52)
[2023-05-19] MEDS: 0.9% Saline Lock 10 ML Syringe IV ×3 (08:54→17:34)
--- NOTE | 2023-05-19 10:53 | CASEMGMT ---
Social Work Assessment Labor and Delivery Unit Patient Address: [address] [place] [id number] Phone number: [phone] Date of Referral: 05/19/23 Time of Referral:? 211 Referred By: Gilma Irene Date of Intervention: ??05/19/23 Time of Intervention:? 944 Reason for Referral:? Hx THC in , tobacco currently Sw completed chart review and acknowledges social work consult due to THC and tobacco use during . Sw presented to bedside and introduced self to mother of baby (MOB- Misty) and father of baby (FOB- Hai) who arrived partway through assessment. Sw completed psychosocial assessment and provided information regarding community resources that are available to MOB. History obtained from: medical records and mother of baby (MOB) and FOB. Household composition: Currently residing in the family home is MOB, FOB and now baby. Parents report their housing is safe and secure, no concerns at this time. Patient's parent/guardian status:?Parents have been together for 6 years, for 2. KIMBERLEY states that they met while working together at [employer]. No concerns regarding domestic violence or intimate partner violence. ? Medical History: KIMBERLEY is 27 year old female who is 1,para 0- now 1 following delivery of baby. KIMBERLEY received routine care during with [place] beginning on 10/30/22 at 10 weeks gestation. KIMBERLEY delivered baby via [facility] on 05/18/23 at 39 weeks gestation. Baby girl, named Aurora Turner, was born weighing 6lb and 13 oz and her apgars were 8 and 9 at one and five minutes of life respectfully. KIMBERLEY reports that she is breast feeding and it is going well- MOB has a pump for home. Educational Status:? Both parents are high school graduates- no college education for either parent. Parents deny concerns with reading, learning or comprehension. Financial Status: Both parents are gainfully employed outside of the home. They both work for [employer]. FOB is able to take two weeks off of work for paternity leave, and MOB will be able to take 12. Infant Supplies: KIMBERLEY states that she has obtained all necessary baby supplies, including: car seat, safe sleep space, clothes, diapers, wipes and a breast pump. Childcare/Caregiver(s):? Parents report that MOB will be the primary caregiver to baby while she is on maternity leave, along with FOB when he is not at work. When both parents return to work they will use grandma's to babysit baby. Transportation:?? Both parents have their drivers license and reliable means of transportation. No transportation barriers at this time. Programs/Agencies Involved: MOB denies any linkage to community resources at this time. Jimenez provided parents with list of [facility] resources as a reference should any needs or concerns present themselves. ??? Children Services/Legal Issues:??? No prior children services involvement, no issues or concerns warranting a referral at this time. Behavioral Health Issues: ??Mental Health History:?Parents deny mental health history/ diagnoses. ?? Substance Use History: MOB tested positive for THC at first OB appointment on 10/30/22. MOB states that she used THC prior to discovering that she was . MOB states that when she found out she was at a couple of days after her missed period, she stopped using. MOB tested negative at time of delivery. ?? Family History:??Parents deny family history of mental health diagnoses and substance use. ??? Drug Screens: MOB was positive for THC at first OBGYN apt on 10/30/22, but was negative at time of delivery. Meconium still pending for baby. ?? Family/Social Stressors: Parents deny stressors at this time. Support Systems: Parents report that both sets of grandparents are supportive. Depression/Shaken Baby/Safe Sleeping:? Sw educated parents on signs and symptoms of baby blues and depression. Jimenez provided literature for parents to review that also provided information on appropriate coping skills and recommendations should MOB experience any symptoms. Sw educated parents on shaken baby prevention and ABCs of safe sleep. Parents expressed understanding. ASSESSMENT:? MOB and baby admitted following labor and delivery. MOB quiet and reserved during assessment, but answered questions asked. MOB with history of THC use, but none during once she discovered she was . Parents with everything they need for baby and adequate supports in place. Safe Plan of Care for infant related to substance use:? MOB states that she does not plan to use THC now that she is no longer . PLAN:? MOB and baby to be discharged when medically ready. ?No other services requested or indicated. Norm Guerrier, WRISTER, SPUN PASTE MACHINE OPERATOR
[2023-05-19 12:21] LABS: Bedside Glucose 58 mg/dL (74-106)
[2023-05-19 12:21] LABS: Bedside Glucose 74 mg/dL (74-106)
[2023-05-19 21:27] LABS: Hematocrit 32.6 % (37-47); Hemoglobin 10.6 g/dL (12.0-15.0); Mean Corp Hgb Conc 32.5 g/dL (32-36); Mean Corpuscular Hgb 29.6 pg (27.0-32.0); Mean Corpuscular Volume 91.1 fL (81-99); Mean Platelet Vol. 10.4 fl (6.2-12.0); Platelet Count 191 K/mm3 (150-450); RBC Distribution Width CV 13.9 % (11.6-14.6); RBC Distribution Width SD 46.9 fl (35.1-43.9); Red Blood Count 3.58 M/mm3 (4.2-5.4); White Blood Count 11.7 K/mm3 (4.4-11.0)
[2023-05-20] MEDS: Acetaminophen 500 MG Tablet 1000 MG PO ×2 (01:29→06:59)
[2023-05-20] MEDS: Naproxen 500 MG Tablet PO ×2 (01:29→09:42)
[2023-05-20 04:18] VITALS: BP 119/64; PULSE 76; RESP 16; TEMP 36.3; O2SAT 98
[2023-05-20 08:00] VITALS: BP 121/71; PULSE 71; RESP 16; TEMP 37.3; O2SAT 97
--- NOTE | 2023-05-20 08:03 | PCM.PN.OB ---
Subjective Subjective Patient doing well without complaints. Tolerating PO. Ambulating and voiding without difficulty. feeding well. Denies chest pain, shortness of breath, calf pain/swelling, fevers, chills, lightheadedness. Objective Data Objective Data Vital Signs: Vital Signs Temp Pulse Resp BP Pulse Ox O2 Del Method 97.3 F L 76 16 119/64 98 Room Air 05/20/23 04:18 05/20/23 04:18 05/20/23 04:18 05/20/23 04:18 05/20/23 04:18 05/20/23 04:18 Oxygen Delivery Method Room Air Weight: 226 lb 13.69 oz Body Mass Index (BMI) 37.7 Intake & Output: Intake and Output for Last 24 Hours 05/18/23 05/19/23 05/20/23 23:59 23:59 23:59 Intake Total 4693.63 / 4693.63 2398.33 / 2398.33 Output Total 2925 / 2925 2800 / 2800 Balance 1768.63 / 1768.63 -401.67 / -401.67 Lab / Micro Data 05/19/23 21:16 Labs: Laboratory Results - last 24 hr 05/18/23 19:13: POC Glucose 58 L 05/18/23 19:27: POC Glucose 74 05/19/23 08:08: POC Glucose 73 L 05/19/23 21:16: WBC 11.7 H, RBC 3.58 L, Hgb 10.6 L, Hct 32.6 L, MCV 91.1, MCH 29.6, MCHC 32.5, RDW Std Deviation 46.9 H, RDW Coeff of [place] 13.9, Plt Count 191, MPV 10.4 ROS Constitutional Constitutional: Reports systems reviewed and no addt'l complaints, except as documented Cardiovascular Cardiovascular: Reports systems reviewed and no addt'l complaints, except as documented Respiratory/Chest Respiratory/Chest: Reports systems reviewed and no addt'l complaints, except as documented Gastrointestinal Gastrointestinal: Reports systems reviewed and no addt'l complaints, except as documented Physical Exam Const alert, oriented x3 and no apparent distress HEENT Head and Scalp: atraumatic Resp normal respiratory effort GI soft to palpation and non-tender Inspection: incision intact, healing well and drainage (none) Bimanual Exam - Vag & Uterus: uterus non-tender Uterus Palpation: uterus fundus firm (below Umbilicus) Assessment & Plan (1) delivery delivered: COMMENT: SM LTCS AOD 6 cm and recurrent variables girl Simon GDMA2 PLAN: Plan s/p LTCS PPD # 2 1. routine post care 2. breast feeding- support given 3. rh positive 4. rubella immune
[2023-05-20] MEDS: Senna/Docusate Sodium 1 Tablet PO (09:41)
[2023-05-20] MEDS: Pantoprazole Sodium 20 MG Tablet PO (09:42)
== END 2023-05-20 10:40 | disposition home or self-care (01) | DRG 787 ==
PROVIDERS: Registered Nurse; Admitting Provider Obstetrics & Gynecology; Referring Provider Obstetrics & Gynecology; Visit Provider Obstetrics & Gynecology
DX: O76 Abnormality in fetal heart rate and rhythm complicating labor and delivery (principal); O99.324 Drug use complicating childbirth; F12.90 Cannabis use, unspecified, uncomplicated; F17.210 Nicotine dependence, cigarettes, uncomplicated; O24.425 Gestational diabetes mellitus in childbirth, controlled by oral hypoglycemic drugs; O40.3XX0 Polyhydramnios, third trimester, not applicable or unspecified; Z37.0 Single live birth; O99.334 Smoking (tobacco) complicating childbirth; O99.824 Streptococcus B carrier state complicating childbirth; O62.0 Primary inadequate contractions; Z3A.39 39 weeks gestation of pregnancy
CPT/HCPCS: 59025; 59050; 80307; 82962; 85025; 85027; 86780; 86850; 86900; 86901; 88307; 99221; J7030; J7120; A4216; G0378; J2405

== ENCOUNTER → 2023-06-28 | Outpatient (CLI) | payer BC, SELFPAY ==
[2023-07-02 17:24] LABS: HPV Reflexed? NOT INDICATED
== END | disposition home or self-care (01) ==
LOC: LABSPEC 13:05
PROVIDERS: Referring Provider Obstetrics & Gynecology; Visit Provider Obstetrics & Gynecology
DX: Z12.4 Encounter for screening for malignant neoplasm of cervix (principal)
CPT/HCPCS: 88175; G0145

== ENCOUNTER → 2024-02-23 | Outpatient (CLI) | payer BC, SELFPAY | END | disposition home or self-care (01) | LOC: LABSPEC 17:10 | PROVIDERS: Referring Provider Physician Assistant; Visit Provider Physician Assistant | DX: R31.9 Hematuria, unspecified (principal) | CPT/HCPCS: 87086; 87088 ==

== ENCOUNTER → 2024-03-21 | Outpatient (CLI) | payer BC, SELFPAY ==
--- NOTE | 2024-03-21 | CYSPIN_PTH ---
PATIENT: ARIANNA KERR LOC: [facility] U#:[id number] AGE/SX: 28/F ROOM: RE03/21/[address]: Dr. Ruby Romero MD : 1995 BED: DIS: 03/21/2024 SPEC #: [id number] RECD: 03/22/24 08:26 STATUS: BRIGETTE JULIA #: [id number] ANUSHKA: 03/21/24 00:[address]: Ruby Romero DEPT: CYTOLOGY RECD BY: Rogelio Garcia ENTERED: 03/22/24 08:26 SP TYPE: CYSPIN FL OTHR DR: No Primary Care Phys Tissues: Urine Procedures: Pap Stain (control) Special Stain Group II Cytospin Fluid HEADER OPERATION: Not noted PRE-OP DIAGNOSIS: Gross hematuria TISSUE SUBMITTED: Urine for cytology DIAGNOSIS CYTOLOGY Urine for cytology (cytospin): Negative for high grade urothelial carcinoma (Rochelle Category System II). See comment. EDER/mr 03/22/2024 COMMENT The Rochelle System for urine cytology diagnostic categorization was used in the evaluation of this case. CYTOLOGY STUDY Slides are reviewed. CYTOLOGY GROSS Received is 70 ml of hazy-yellow fluid labeled with the patient's name and and designated per the requisition as urine. Submitted for cytology preparation. Mr 03/22/2024 TC:5 CPT: 23985
[2024-03-21 17:47] LABS: Cytology, Body Fluid / CSF SEE PATHOLOGY REPORT
== END | disposition home or self-care (01) ==
PROVIDERS: Referring Provider Urology; Visit Provider Urology
DX: R31.0 Gross hematuria (principal)
CPT/HCPCS: 88108; 88313

== ENCOUNTER → 2024-04-07 | Outpatient (CLI) | payer BC, SELFPAY ==
--- NOTE | 2024-04-07 13:24 | CT_ITS ---
STUDY: CT ABDOMEN AND PELVIS WITH AND WITHOUT CONTRAST REASON FOR EXAM: Female, 28 years old. Gross hematuria RADIATION DOSAGE (If Supplied By Facility): CTDIvol = ( 18.49 ) mGy, DLP = ( 3252.71 ) mGycm TECHNIQUE: Transaxial images were obtained from the dome of the diaphragm to the symphysis pubis without oral contrast. IV 75mL Isovue-370 was administered. Sagittal and coronal images were reconstructed. Individualized dose optimization techniques were used for this CT. COMPARISON: None. FINDINGS: The visualized lung bases are unremarkable. The visualized portions of the heart are within normal limits. Normal shape of the liver which is enlarged. 2 cm hemangioma in the posterior segment of the right hepatic lobe. Normal gallbladder and extrahepatic biliary system. Normal spleen. Normal pancreas. Normal bilateral adrenal glands. Normal right kidney. Normal left kidney. Evaluation of the GI tract is limited by absence of oral contrast. Cannot exclude stomach wall thickening. No dilated loops of bowel or evidence for obstruction. Cannot exclude segmental thickening of the sepulveda of the small or large bowel. Cannot exclude enteritis or colitis. Moderate diffuse fecal retention. Appendix within normal limits. Normal abdominal aorta. Normal inferior vena cava. Normal retroperitoneum. Normal urinary bladder. Normal abdominal wall. Normal osseous structures. CT/CT Abd/Pelvis W/WO Contrast IMPRESSION: No acute abnormality. Hepatomegaly and 2 cm hemangioma. Normal kidneys, collecting systems, ureters and bladder. Electronically Signed: Joshua Green MD at 16:54 EDT ,
== END | disposition home or self-care (01) ==
LOC: CT 13:22
PROVIDERS: Referring Provider Urology; Visit Provider Urology
DX: R31.0 Gross hematuria (principal)
CPT/HCPCS: 74178; Q9967

== ENCOUNTER → 2024-08-25 | Outpatient (CLI) | payer BC, SELFPAY ==
[2024-08-25 16:22] LABS: hCG Titer Quant., Serum 6744 mIU/mL (1-3)
== END | disposition home or self-care (01) ==
PROVIDERS: Referring Provider Obstetrics & Gynecology; Visit Provider Obstetrics & Gynecology
DX: N91.2 Amenorrhea, unspecified (principal)
CPT/HCPCS: 36415; 84702

== ENCOUNTER → 2024-09-20 | Outpatient (CLI) | payer BC, SELFPAY | END | disposition home or self-care (01) | LOC: LABSPEC 11:55 | PROVIDERS: Referring Provider Obstetrics & Gynecology; Visit Provider Obstetrics & Gynecology | DX: O09.90 Supervision of high risk pregnancy, unspecified, unspecified trimester (principal); Z3A.00 Weeks of gestation of pregnancy not specified | CPT/HCPCS: 87086; 87088 ==

== ENCOUNTER 2024-09-21 12:19 | Day surgery (SDC) | payer BC, SELFPAY ==
[2024-09-21] VITALS (8 sets, daily range): BP systolic 109–122; BP diastolic 72–88; PULSE 81–97; RESP 16–18; TEMP 36.3–37.2; O2SAT 86–100; BMI 33.3
--- NOTE | 2024-09-21 13:06 | DCINST_ITS ---
Discharge Instructions Diet Discharge Diet: No restrictions DC O2, CPAP, BIPAP needs Home O2 Discharge instructions: No Dressing / Incision Discharge Activity: Return to Normal Activity, May Shower and May Take a Tub Bath (after 1 week) May resume sexual activity in: 1-2 weeks Weight Bearing Status: Weight bearing as tolerated Lifting Restrictions: none Dressing / Incision Call your doctor if you observe: Fever of 101 or Higher, Using more than 1 pad per hour, Shortness of breath and Uncontrolled pain Follow Up Care Please Follow Up With: Julita Hurley DO When: Call [phone] to schedule appointment. Test Results: Test results from this visit will be discussed in further detail at your follow- up appointment, if applicable. Discharge Plan Admission Attending Provider: Julita Hurley Primary Care Provider: Care Physician,Yani Primary Instructions Print Language: Tajik Discharge Orders/Prescriptions Prescriptions: No Action PNV-DHA 27 mg iron-1 mg -300 mg capsule 1 cap PO DAILY Referrals / Follow Up: Care Physician,No Primary [Primary Care Provider] - Disposition Disposition (needs filled in before D/C Order can be placed): Home, Self Care
--- NOTE | 2024-09-21 13:06 | PCM.HP.BLA ---
History and Physical Date of Admission: 09/21/24 Vital Signs 08/11/2508:20 09/07/2507:18 09/20/2509:20 Height 5 ft 5 in 5 ft 5 in 5 ft 5 in Weight: 200 lb BMI 33.3 BP 132/86 H Intake Visit Reasons: New OB, LMP 07/22, SARA 04/28/25 Plastics Engineer Required: No Is patient in pain?: No Allergies No Known Allergies Allergy (Verified 09/20/24 10:18) Medications ?Medication ?Instructions ?Recorded ?Confirmed ?Type multivitamin no.47-iron fum 27 cap PO 09/05/24 09/07/24 History mg-folate no.1 1 mg-dha 300 mg capsule (PNV-DHA) guaifenesin 600 mg tablet, 600 mg PO BID PRN congestion #14 09/07/24 09/20/24 Rx extended release 12 hr tabs methylprednisolone 4 mg tablets in 4 mg PO PER PKG DIR 6 days #21 tabs 09/15/24 09/20/24 Rx a dose pack (Medrol (Jose Carlos)) ondansetron HCl 4 mg tablet 4 mg PO Q6H PRN nausea and 09/20/24 09/20/24 Rx vomiting #60 tabs Last Menstrual Period: 07/22/24 Zika: Zika virus screening: Negative : No PFSH PFSH Medical History delivery delivered Polyhydramnios affecting 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) Hirsutism Tobacco use Surgical History Previous section History of right knee surgery Family History Father Kidney disease, Onset Age: 48 Social History adopted: No household members: spouse and children housing: house number of children: 1 service: No current occupational status: employed current occupation: [employer] current occupational exposures/hazards: No pets and animals: Yes ( doing litter) pets and animals: cat(s) and fish history of recent travel: No sexually active: Yes Smoking Status: Current some day smoker Tobacco: How many years used: 12 Electronic Cigarette Use: with nicotine quit status: considering quitting alcohol intake: never substance use type: former substance user Date of last use: 08/07/24 and marijuana well-balanced diet: daily or most days caffeine: Yes Type: coffee Number of servings: 1 eating out: 1-3 times/week during the past year weight has: decreased > 10 lbs what type of physical activity do you participate in: none suraj/voodoo: None seatbelt use: always do you feel safe at home: Yes additional social history: [employer] work at [employer] History 2 Elective abortions Hx Para 1 Spontaneous abortions Hx # Term Pregnancies Ectopic pregnancies Hx # Pregnancies Multiple births # of living children 1 Past Pregnancies Del. Date Name GA/Weeks Outcome Route Bth Weight Infant Gen Labor Lgth Anesthesia Del Locatn Provider FOB 05/18/23 Simon 39 live - full term 6lbs 13 oz Female epidural [facility] RANJ[facility] GRECOCARLOS EDUARDO HAWK Delivery Date: 05/18/23 Last Updated by: Faith Solis aod, 9cm sm kw 39 gdm. HPI New OB, LMP 07/22, SARA 04/28/25 Details: ARIANNA KERR is a 28 year old who presents for New OB visit. OB Visit SARA Calculator Estimated Delivery Date Method Current WG Current Estimate 04/28/25 LMP (Certain) 8w 4d Comments: HIV: Urine Culture: Sequential Screen: NIPT Screen: Estimated Due Date: 04/28/25 Initial Weight: Not Recorded Date <del>?</del> EGA Weight BP Urine Prot <del>?</del> Glucose FHR FuHt Pres Dilation <del>?</del> Effaced St Visit Note 09/20/24<del>?</del> 8w 4d 200 lb 132/86 <del>?</del> 0 <del>?</del> JV- CRL measuring 6 weeks 5 days without heart tones. missed diagnosed Menstrual History Last Menstrual Period: 07/22/24 Reported LMP: definite Normal amount/duration: Yes Frequency in days: 28 On hormonal BC at conception: No hCG+: 08/23/24 Antepartum Record Genetic Screening: Congenital Heart Defect: Partner (father hole in heart), Neural Tube Defect: Other, Hemoglobinopathy Or Carrier: Other, Cystic Fibrosis: Other, Chromosome Abnormality: Other, Haakn-Sachs: Other, Hemophilia: Other, Intellectual Disability/Autism: Other, Recurrent Loss/Stillbirth: Other, Other Structural Defect: Other, Other Genetic Disease: Other and Maternal Metabolic Disorder: Other Infection History: Live with someone with TB or Exposed to TB: No, Patient or Partner has history of Genital Herpes: No, Rash or Viral illness since last mentrual period: Yes (current cold/sore throat-enc urgent care & reviewed safe OTC's for sx), Prior GBS-Infected child: No, History of STD: No, HIV Infection: No, History of Hepatitis: No, Recent travel outside of [place]: No, Concern for hepatitis exposure: No, Varicella immune: Yes (immune) and Covid Vaccinated: No Medical History Medical History: Positive: Diabetes (GDM), 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), Operations/hospitalizations (right knee surgery), History of abnormal pap (Hx of LGSIL w/+HPV, last pap Neg), Relevant family history (Father Kidney failure) and Other (narrow pelvis, obesity) and Negative: Hypertension, Heart disease, Auto-immune disorder, Kidney disease/UTI, Neurologic/epilepsy, Psychiatric, Depression/ depression, Hepatitis/liver disease, Varicosities/phlebitis, Thyroid dysfunction, Trauma/domestic violence, History of blood transfusions, D (Rh) Sensitized, Pulmonary (e.g.,TB,Asthma), Seasonal allergies, Drug/latex allergies/reactions, Breast, Anesthetic complications, Uterine anomaly/cosmo, Infertility and Anti-retroviral treatment ACOG First Trimester First Trimester: Discussed Second Trimester Second Trimester: Signs and Symptoms of Labor, Selecting a care provider, Reproductive Life Planning & Contreception, Care Planning, Depression/Anxiety and Intimate Partner Violence; Discussed Tobacco Cessation Third Trimester Third Trimester: Pain Management Plans, Labor support person(s), Immediate Larc, Movement Monitoring, Signs and Symptoms of Preeclampsia and Education ROS Const Reports system reviewed and no additional complaints, except as documented, Reports fatigue and Denies fever(s) Eyes Reports system reviewed and no additional complaints, except as documented ENT Reports system reviewed and no additional complaints, except as documented Card Denies chest pain and Denies dyspnea Resp Reports system reviewed and no additional complaints, except as documented, Denies cough and Denies dyspnea GI Denies abdominal pain and Reports nausea Reports system reviewed and no additional complaints, except as documented Musc Reports system reviewed and no additional complaints, except as documented Skin/Breast Reports system reviewed and no additional complaints, except as documented Neuro Yes system reviewed and no additional complaints, except as documented Psych Reports system reviewed and no additional complaints, except as documented Endo Reports system reviewed and no additional complaints, except as documented and Reports fatigue Exam Const General: healthy appearing, comfortable and no acute distress Orientation: alert [facility] Head: normal to inspection, normocephalic and atraumatic Ears: hearing grossly normal bilaterally and external ears normal Nose: external nose normal and nares normal Mouth: oral mucosae normal Teeth and gingiva: dentition normal Eyes General: appearance normal, both eyes and all related structures Neck Neck: normal visual inspection, no lymphadenopathy and supple Thyroid: thyroid normal Resp Effort & Inspection: normal respiratory effort GI Inspection: normal to inspection Palpation: soft and no hepatosplenomegaly General: bladder normal to palpation External Female Exam: normal external appearance and normal appearance of the urethra Urethra: normal appearance of the urethra Speculum Exam - Vagina: normal appearance of the vagina and normal vaginal discharge Speculum Exam - Cervix: normal appearance of the cervix Bimanual Exam- Vagina & Uterus: normal bimanual exam, bladder normal to palpation, non-tender and other Bimanual Exam- Adnexa, other: non-tender Skin General: no rashes or lesions noted Neuro Motor: muscle tone normal throughout and no movement abnormalities noted Extrem General: normal to inspection and full ROM Supplemental Info ACOG book given and patient encouraged to read about nutrition, exercise, weight gain, and food avoidance in . Coding Level of Care Code Off vis,est,level 4 Diagnoses Z34.90 Obesity affecting O99.210 Marijuana smoker in remission F12.21 Current every day vaping Z72.89 Hx of gestational diabetes in prior , currently O09.299; Z86.32 Previous section Z98.891 LGSIL (low grade squamous intraepithelial dysplasia) Missed O02.1 Assessment and Plan Assessment and Plan (1) : Status: Acute Comment: elects NIPT with Gender (2) Obesity affecting : Status: Acute Comment: HgbA1c (3) Marijuana smoker in remission: Status: Acute Comment: Pt last used 08/07/24, informed initial and random tox screens to be done, education provided,encouraged (4) Current every day vaping: Status: Acute Comment: nicotine, considering quitting, smoking in education provided, discussed cessation (5) Hx of gestational diabetes in prior , currently : Status: Acute Comment: HgbA1c (6) Previous section: Status: Acute Comment: AOD, narrow pelvis (7) LGSIL (low grade squamous intraepithelial dysplasia): Status: Acute Comment: repeat 2021 pap 2019 ASCUS HPV positive, 06/28/23 Neg (8) Missed : Status: Acute Orders: Orders Culture, Urine 09/05/24 O09.90 - Supervision of high risk , unspecified, unspecified trimester Chlamydia/GC LEO aptima 09/05/24 O09.90 - Supervision of high risk , unspecified, unspecified trimester Medications: New ondansetron HCl 4 mg PO Q6H PRN 60 tabs 4RF nausea and vomiting Plan After discussing the patient's diagnosis and treatment plan options, patient wishes to proceed with surgical management. I have discussed with the patient the risks, benefits, and alternatives of the procedure which include but are not limited to risks of anesthesia, bleeding, infection, possible damage to bowel, bladder, or surrounding vasculature which could lead to additional surgery to evaluate any complications. Patient agrees to procedure and wishes to proceed. ACOG/uptodate references given for additional information regarding procedure. plan suction D&C
[2024-09-21 13:11] LABS: Mean Corp Hgb Conc 33.3 g/dL (32-36); Mean Corpuscular Hgb 29.4 pg (27.0-32.0); Mean Corpuscular Volume 88.1 fL (81-99); Mean Platelet Vol. 9.4 fl (6.2-12.0); Platelet Count 283 K/mm3 (150-450); RBC Distribution Width CV 13.2 % (11.6-14.6); RBC Distribution Width SD 42.6 fl (35.1-43.9); Red Blood Count 5.11 M/mm3 (4.2-5.4); White Blood Count 9.2 K/mm3 (4.4-11.0)
[2024-09-21] MEDS: Doxycycline 100 MG CAPSULE PO (13:21)
--- NOTE | 2024-09-21 14:00 | PRE.ANES_ITS ---
ASA Classification* ASA Classification ASA Classification: 2 Assessment & Plan Anesthesia* Anesthesia Assessment Anesthesia Assessment: Discussed sedation and/or anesthesia options, risks, benefits, and alternatives with patient/parents/legal guardian/POA. Questions invited. The patient/parents/legal guardian/POA seems to understand and agrees to proceed with anesthesia plan. Reviewed the physical assessment, medical history, allergy history and patient home medications list prior to surgery/procedure/anesthetic and documented any changes. Performed airway and anesthesia risk assessments. Anesthesia Type Anesthesia Type: MAC History Source History Obtained from:: Patient and Chart Anesthesia Focused Assessment* Temperature: 99 F Pulse Rate: 86 Blood Pressure: 118/82 Respiratory Rate: 17 Pulse Ox: 86 Oxygen Delivery Method: Room Air Airway Assessment Mouth opens: >3 cm Mallampati Score: II Teeth Condition: Intact Neck Range of motion (ROM): Full ROM Focused Labs Anesthesia Preop lab: CBC WBC 9.2 K/mm3 (4.4-11.0) 09/21/24 12:50 09/21/24 RBC 5.11 M/mm3 (4.2-5.4) 09/21/24 12:50 09/21/24 Hgb 15.0 g/dL (12.0-15.0) 09/21/24 12:50 09/21/24 Hct 45.0 % (37-47) 09/21/24 12:50 09/21/24 Plt Count 283 K/mm3 (150-450) 09/21/24 12:50 09/21/24 CHEMISTRY POC Glucose 73 mg/dL (74-106) L 05/19/23 08:08 05/19/23 TSH 3.72 uIU/mL (0.358-3.74) 12/31/21 12:34 COAG HCG, Quant 6744 mIU/mL (1-3) H 08/25/24 14:24 08/25/24 Pre-Assessment Diagnosis/Proposed Procedure Planned Operative Procedure(s): SUCTION, D&C Anesthesia History Anesthesia History - superintendent tests: Anesthesia History - superintendent tests Hx Hospitalization No 09/20/24 14:36 Any Problems With Anesthesia No 09/20/24 14:36 Cholinesterase deficiency No 09/20/24 14:36 You/Your Family Experience No 09/20/24 14:36 fever (hyperthermia) with Relationship Recent Exposure to Contagious No 09/21/24 13:22 Disease Does patient have nerve No 09/20/24 14:36 stimulator Patient instructed to have device shut off --Does patient have Pacemaker No 09/21/24 13:22 or ICD? When Was Last Pacemaker Check QUESTION #4 FULL TEXT: You/Your Family Experience fever (hyperthermia) with Anesthesia Last Oral Intake Last Oral intake: Last Oral Intake NPO since 00:00 09/21/24 13:22 Meds taken in AM with sips of No 09/21/24 13:22 water? Meds patient instructed to take am of surgery Any additional information?: Yes NPO since: 09:00 (Water at 9 am) PONV PONV - superintendent tests: PONV - superintendent tests Female Yes 09/20/24 14:36 HX of Motion Sickness No 09/20/24 14:36 HX of N/V After Surgery No 09/20/24 14:36 Non-Smoker No 09/20/24 14:36 Duration of Surgery greater No 09/20/24 14:36 than 60 minutes Number of Risk Factors 1 09/20/24 14:36 PONV Score Low Risk 09/20/24 14:36 Height & Weight Height & Weight: Anesthesia: Height & Weight Height 5 ft 5 in 09/21/24 13:22 Weight: 91 kg 09/21/24 13:22 Body Mass Index (BMI) 33.3 09/21/24 13:22 Respiratory Assessment Respiratory Assessment - superintendent tests: Respiratory Tract Infection Hx - superintendent tests Hx Respiratory Tract Infection Yes: LARYNGITIS 09/20/24 14:36 Any additional information?: Yes Hx Respiratory Tract Infection: Yes (Laryngitis is currently improving on steroids.) STOP Sleep Apnea STOP Sleep Apnea - superintendent tests: STOP Sleep Apnea - superintendent tests Hx Hypertension No 09/20/24 14:36 Hx Sleep Apnea No 09/20/24 14:36 CPAP BIPAP Do you snore loudly (louder No 09/20/24 14:36 than talking or can be heard Do you often feel tired/ No 09/20/24 14:36 fatigued/ sleepy during daytime? Has anyone observed you stop No 09/20/24 14:36 breathing during sleep? STOP Results Negative 09/20/24 14:36 QUESTION #5 FULL TEXT : Do you snore loudly (louder than talking or can be heard through closed doors)? Tobacco Use History Tobacco Use History - superintendent tests: Tobacco Use History - superintendent tests Tobacco Use Smoking Status Current every day smoker 09/20/24 14:36 Hx Tobacco Use No 09/20/24 14:36 Years Smoking Packs Smoked per Day Smoking Cessation Date was within the last 15 years Hx Smoking Cessation Date Hx Smoking Cessation Counseling Any additional information?: Yes Smoking Status: Current every day smoker (Patient did smoke today.) Hematologic Medial History Hematologic Hx - superintendent tests: Hematologic Medical Hx - promotions producer Hx of Blood Transfusion No 09/20/24 14:36 Hx of Transfusion in last 3 No 09/20/24 14:36 Months Date of Last Transfusion (if within last 3 months) Ever experience any problems No 09/20/24 14:36 with transfusion(s)? Specify any problems Hx of Preganancy in last 3 N/A 09/20/24 14:36 Months Nurse Filling Out Transfusion NBUCHER 09/20/24 14:36 & Questions: Date: 09/20/24 09/20/24 14:36 Time: 14:37 09/20/24 14:36 Patient unable to answer at this time (ie. 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) Hirsutism Tobacco use Home Medications ?Medication ?Instructions ?Recorded ?Last Taken ?Type multivitamin no.47-iron fum 27 1 cap PO DAILY 09/05/24 09/20/24 History mg-folate no.1 1 mg-dha 300 mg capsule (PNV-DHA) Allergy/AdvReac Type Severity Reaction Status Date / Time No Known Allergies Allergy Verified 09/21/24 12:46 Family History Father Kidney disease, Onset Age: 48 Surgical History Previous section History of right knee surgery Social History adopted: No household members: spouse and children housing: house number of children: 1 current occupational status: employed current occupation: [employer] current occupational exposures/hazards: No pets and animals: Yes ( doing litter) pets and animals: cat(s) and fish history of recent travel: No sexually active: Yes Smoking Status: Current every day smoker tobacco type: cigarettes and e- cigarettes Tobacco: How many years used: 12 Electronic Cigarette Use: with nicotine quit status: considering quitting alcohol intake: never substance use type: former substance user Date of last use: 08/07/24 and marijuana well-balanced diet: daily or most days caffeine: Yes Type: coffee Number of servings: 1 eating out: 1-3 times/week during the past year weight has: decreased > 10 lbs what type of physical activity do you participate in: none suraj/pentecostal: None seatbelt use: always do you feel safe at home: Yes additional social history: Bernadette work at [employer] Review of Systems (Anesthesia) ROS Narrative System reviewed and no additional complaints, except as documented.
--- NOTE | 2024-09-21 14:00 | POC_PTH ---
PATIENT: ARIANNA TOLBERT LOC: [facility] [place] U#:[id number] AGE/SX: 28/F ROOM: RE09/21/[address]: Dr. Julita Hurley DO : 1995 BED: DIS: 09/21/2024 SPEC #: [id number] RECD: 09/22/24 09:06 STATUS: BRIGETTE JULIA #: [id number] ANUSHKA: 09/21/24 14:[address]: Julita Hurley DEPT: SURGICAL PATHOLOGY RECD BY: Zoltan Sims ENTERED: 09/22/24 09:07 SP TYPE: PROD CONC OTHR DR: No Primary Care Phys Tissues: Product of conception, NOS Procedures: Surgery Specimen Level IV HEADER OPERATION: Dilation and curettage, suction PRE-OP DIAGNOSIS: Missed TISSUE SUBMITTED: Products of conception MICROSCOPIC DIAGNOSIS Uterine contents, D&C: * Immature chorionic villi, decidua and secretory endometrium consistent with products of conception. MICROSCOPIC DESCRIPTION Slides are reviewed. GROSS DESCRIPTION Received in formalin labeled, Arianna Tolbert, and designated products of conception, are multiple pink-daniel, irregularly-shaped, soft tissue fragments, spongy tissue fragments and fibrous tissue, that aggregate to 9.5 x 8.2 x 1.7 cm. There is no tissue seen. Multiple fragments are submitted in three cassettes.JK. 09/22/2024 CPT:70462
--- NOTE | 2024-09-21 14:27 | OP.PCM_ITS ---
Problems Associated Problem List Diagnoses (1) Missed : Multi Select Codes Urinary/Genital Urinary/Genital CPT Codes: 76622 Surg Trtmt missed Ab 1TM Operative Report (Standard) Operative Information Date of Procedure: 09/21/24 Pre-Operative Diagnosis: 8 weeks ,missed Post-Operative Diagnosis: 8 weeks ,missed Surgery/Procedure Performed: suction dilation and curettage seamer panty hose: No Type of Anesthesia: MAC and Topical Anesth RN Documented Start/Stop Times: Operation Date: 09/21/24 14:00 Case Time Into Pre-Op 09/21/24 12:47 Out of Pre-Op 09/21/24 14:11 Procedure Start Time: 14:35 Procedure Stop Time: 14:44 Select all DRAINS/GRAFTS/IMPLANTS that apply: None Estimated Blood Loss: 30cc Specimen collected: Yes Description of specimen(s) removed: products of conception Description of surgery: Patient was taken to the operating room and placed under MAC local anesthesia. She was prepped and draped in the normal sterile fashion the dorsal lithotomy position. Bladder was drained of clear urine and anterior lip of the cervix was grasped and the uterus sounded to 13cm. Cervix was progressively dilated to allow passage of a size 8 suction curette. Progressive passes were made removing the retained products of conception without complication. Sharp curettage confirmed complete removal of the retained products. This was confirmed by bedside ultrasound. All instruments were removed from the vagina and excellent hemostasis was noted and the patient was taken to recovery in stable condition. Surgical Findings: 8 week IUP without heart tones. normal vagina and cervix Complications Complications: No Admit VTE Documentation VTE Present on Admission: No VTE Mechan Device Prophylaxis: SCD's VTE Pharm Prophylaxis ordered?: No
[2024-09-21] MEDS: Lidocaine 1% (30 ml sdv) 30 ML Vial (14:35)
--- NOTE | 2024-09-21 14:54 | PCM.POST.ANE ---
Anesthesia: Postop Eval I Current Vital Signs Temperature: 98.8 F Pulse Rate: 96 Blood Pressure: 116/73 Respiratory Rate: 16 Pulse Ox: 96 Oxygen Delivery Method: Room Air Assessment Airway patent: Yes Spontaneous unlabored respirations: Yes Mental status: Awake and Calm nausea: No Vomiting: No Anesthesia Complication: No Fluid Hydration Crystalloid volume administer (ml): 10 Total IV fluid infused: 10 Progress Note Anesthesia document: Postop Eval 1 completed: Yes
[2024-09-21] MEDS: HYDROcodone Bitartrate/Apap 5/325 Tablet PO (15:30)
--- NOTE | 2024-09-21 20:05 | POSTOPAN2_ITS ---
Anesthesia Postop Eval I Sum Postop Eval Completion status Anesthesia document: Postop Eval 1 completed: Yes Anesthesia Postop Eval I Summary Anesthesia Postop Eval I Summary: Anesthesia Postop Eval I: Assessment Summary Airway patent Yes 09/21/24 14:54 PENAL OFFICER.SKOBY Spontaneous unlabored Yes 09/21/24 14:54 PENAL OFFICER.BERT respirations Mental status Awake,Calm 09/21/24 14:54 PENAL OFFICER.KIMOBDmitry nausea No 09/21/24 14:54 PENAL OFFICER.KIMOBDmitry Vomiting No 09/21/24 14:54 PENAL OFFICER.KIMOBDmitry Anesthesia Postop Eval I: Fluid Summary Crystalloid volume administer 10 09/21/24 14:54 PENAL OFFICER.KIMOBY (ml) Colloids volume administered ( ml) Blood Product volume administered (ml) Total IV fluid infused 10 09/21/24 14:54 PENAL OFFICER.BERT Anesthesia Postop Eval I: Summary Notes Anesthesia Complication No 09/21/24 14:54 PENAL OFFICER.BERT Anesthesia Complication Comment: Post-operative progress note Anesthesia: Postop Eval II Evaluation Mental status: Awake and Calm Pain Level: 1 nausea: No Vomiting: No Complications Anesthesia Complication: No
--- NOTE | 2024-09-21 20:05 | PCM.POSTANE2 ---
Anesthesia Postop Eval I Sum Postop Eval Completion status Anesthesia document: Postop Eval 1 completed: Yes Anesthesia Postop Eval I Summary Anesthesia Postop Eval I Summary: Anesthesia Postop Eval I: Assessment Summary Airway patent Yes 09/21/24 14:54 SEMICONDUCTOR WAFERS ETCHER STRIPPER.SKOBY Spontaneous unlabored Yes 09/21/24 14:54 SEMICONDUCTOR WAFERS ETCHER STRIPPER.BERT respirations Mental status Awake,Calm 09/21/24 14:54 SEMICONDUCTOR WAFERS ETCHER STRIPPER.KIMOBDmitry nausea No 09/21/24 14:54 SEMICONDUCTOR WAFERS ETCHER STRIPPER.KIMOBDmitry Vomiting No 09/21/24 14:54 SEMICONDUCTOR WAFERS ETCHER STRIPPER.KIMOBDmitry Anesthesia Postop Eval I: Fluid Summary Crystalloid volume administer 10 09/21/24 14:54 SEMICONDUCTOR WAFERS ETCHER STRIPPER.KIMOBY (ml) Colloids volume administered ( ml) Blood Product volume administered (ml) Total IV fluid infused 10 09/21/24 14:54 SEMICONDUCTOR WAFERS ETCHER STRIPPER.BERT Anesthesia Postop Eval I: Summary Notes Anesthesia Complication No 09/21/24 14:54 SEMICONDUCTOR WAFERS ETCHER STRIPPER.BERT Anesthesia Complication Comment: Post-operative progress note Anesthesia: Postop Eval II Evaluation Mental status: Awake and Calm Pain Level: 1 nausea: No Vomiting: No Complications Anesthesia Complication: No
== END 2024-09-21 16:20 | disposition home or self-care (01) ==
LOC: SDC 12:20 → AC 12:22
PROVIDERS: Referring Provider Obstetrics & Gynecology; Visit Provider Obstetrics & Gynecology
PROC: (CPT 59820; principal; 2024-09-21 13:45)
DX: O02.1 Missed abortion (principal); O34.219 Maternal care for unspecified type scar from previous cesarean delivery; F17.290 Nicotine dependence, other tobacco product, uncomplicated; E66.9 Obesity, unspecified; Z86.32 Personal history of gestational diabetes
CPT/HCPCS: 59820; 85027; 86850; 86900; 86901; 88305; J2405

== ENCOUNTER → 2024-12-05 | Outpatient (CLI) | payer BC, SELFPAY ==
[2024-12-05 09:48] LABS: hCG Titer Quant., Serum 552 mIU/mL (<9 non-preg)
== END | disposition home or self-care (01) ==
LOC: LAB 08:30
PROVIDERS: Referring Provider Obstetrics & Gynecology; Visit Provider Obstetrics & Gynecology
DX: O26.859 Spotting complicating pregnancy, unspecified trimester (principal); Z3A.00 Weeks of gestation of pregnancy not specified
CPT/HCPCS: 36415; 84702

== ENCOUNTER → 2024-12-07 | Outpatient (CLI) | payer BC, SELFPAY ==
[2024-12-07 12:53] LABS: hCG Titer Quant., Serum 380 mIU/mL (<9 non-preg)
== END | disposition home or self-care (01) ==
LOC: BWCLAB 08:43
PROVIDERS: Referring Provider Obstetrics & Gynecology; Visit Provider Obstetrics & Gynecology
DX: O26.859 Spotting complicating pregnancy, unspecified trimester (principal); Z3A.00 Weeks of gestation of pregnancy not specified
CPT/HCPCS: 36415; 84702

== ENCOUNTER → 2025-01-05 | Outpatient (CLI) | payer BC, SELFPAY ==
[2025-01-05 16:00] LABS: Hemoglobin A1c 5.3 % (<=5.6)
[2025-01-05 16:39] LABS: hCG Titer Quant., Serum 4 mIU/mL (<9 non-preg)
[2025-01-08 15:09] LABS: Anti-Cardiolipin Ab, IgG, Qn < 9 GPL U/mL (0-14); Anti-Cardiolipin Ab, IgM, Qn < 9 MPL U/mL (0-12); Beta-2-Glycoprotein I IgA <9 (0-25); Beta-2-Glycoprotein I IgG <9 (0-20); Beta-2-Glycoprotein I IgM <9 (0-32); Dilute Russell Viper Venom 29.8 sec (0.0-47.0); Interpretation Comment: (.); PTT-LA 32.7 sec (0.0-43.5); Thrombin Time 17.7 sec (0.0-23.0); dPT Confirm Ratio 0.96 Ratio (0.00-1.34)
== END | disposition home or self-care (01) ==
LOC: LAB 14:54
PROVIDERS: Referring Provider Obstetrics & Gynecology; Visit Provider Obstetrics & Gynecology
DX: O03.4 Incomplete spontaneous abortion without complication (principal); N96 Recurrent pregnancy loss
CPT/HCPCS: 36415; 83036; 84443; 84702; 86146; 86147

== ENCOUNTER → 2025-05-05 | Outpatient (CLI) | payer BC, SELFPAY ==
--- OUTSIDE RECORDS SUMMARY | 2025-05-05 07:42 | XMS RPT_ITS | CCD ---
Author Organization [facility] Care Team Providers Care Geographic Information System Surveyor Name Role Phone Care Physician, No Primary Primary Care Provider Unavailable Care Physician, No Primary Referring Provider Un available Dr. Gilma Bliss Attending Provider [phone] Care Physician, No Primary Primary Care Provider Unavailable Care Physician, No Primary Referring Provider Un available ADDI Trinidad Attending Provider [phone] NO PRIMARY CARE, MD Primary Care Unavailable ROMERO TRINIDAD Referring Unavailable ROMERO TRINIDAD Attending Unavailable Care Physician, No Primary Primary Care Provider Unavailable Care Physician, No Primary Referring Provider Un available ADDI Trinidad Attending Provider [phone] Dr. Gilma Bliss Attending Provider [phone] Dr. Julita Hurley Attending Provider [phone] Care Physician, No Primary Primary Care Provider Unavailable Care Physician, No Primary Referring Provider Un available ADDI Trinidad Attending Provider [phone] Thuy CHIEF WHEELAGE CLERK, CB-Pierce Dubon Attending Provider [phone] ADDI Copeland Attending Provider [phone] ADDI Copeland Referring Provider [phone] ADDI Copeland Other Provider [phone] Care Physician, No Primary Primary Care Provider Unavailable Care Physician, No Primary Referring Provider Un available Dr. Gilma Bliss Attending Provider [phone] ADDI Trinidad Admit Provider [phone] ADDI Trinidad Other Provider [phone] Dr. Gilma Bliss Admit Provider [phone] Dr. Gilma Bliss Referring Provider [phone] Dr. Gilma Bliss Other Provider Care Physician, No Primary Primary Care Provider Unavailable Care Physician, No Primary Referring Provider Un available Dr. Julita Hurley Attending Provider [phone] ADDI Trinidad Attending Provider Thuy CHIEF WHEELAGE CLERK, CHIEF WHEELAGE CLERK-C Ling Attending Provider [phone] Dr. Gilma Bliss Attending Provider [phone] ADDI Copeland Attending Provider [phone] ADDI Copeland Referring Provider [phone] ADDI Copeland Other Provider [phone] ADDI Trinidad Admit Provider [phone] ADDI Trinidad Other Provider [phone] Dr. Gilma Bliss Admit Provider [phone] Gilma Bliss Referring Provider [phone] Dr. Gilma Bliss Other Provider Care Physician, No Primary Primary Care Provider Unavailable Care Physician, No Primary Referring Provider Un available Arianna Copeland CNM Attending Provider [phone] Dr. Julita Hurley DO Attending Provider Dr. Julita Hurley DO Referring Provider Demar Hicks Attending Provider Juan Singer Attending Provider Dr. Julita Hurley DO Other Provider [phone] Care Physician, No Primary Primary Care Provider Unavailable Care Physician, No Primary Referring Provider Un available Airanna Copeland CNM Attending Provider [phone] Dr. Julita Hurley DO Attending Provider Dr. Julita Hurley DO Referring Provider Demar Hicks Attending Provider Juan Singer Attending Provider Timothy Leal DO, Dr. Cancino Other Provider Care Physician, No Primary Primary Care Provider Unavailable Care Physician, No Primary Referring Provider Un available Arianna Copeland CNM Attending Provider Teto JOHN, Dr. Dillard Attending Provider Teto JOHN, Dr. Dillard Referring Provider [phone] Care Physician, No Primary Primary Care Provider Unavailable Care Physician, No Primary Referring Provider Un available Timothy Leal DO, Dr. Cancino Attending Provider Timothy Leal DO, Dr. Cancino Referring Provider Care Physician, No Primary Primary Care Unava ilable Julita Hurley Attending Unavailabl e Hansele VelJulita duggan Referring Unavailabl e Care Physician, No Primary Primary Care Unava ilable Ruby Romero Referring Unavailable Ruby Romero Attending Unavailable Demar Hicks Attending Unavailable Care Physician, No Primary Primary Care Unava ilable Care Physician, No Primary Referring Unava ilable Care Physician, No Primary Primary Care Unava ilable Julita Hurley Attending Unavailabl e Vande Velolga lidia, Julita Consulting Unavailabl e Hansele Julita Leal Referring Unavailabl e Care Physician, No Primary Primary Care Unava ilable Care Physician, No Primary Referring Unava ilable Arianna Copeland Attending Unavailable Care Physician, No Primary Primary Care Unava ilable Care Physician, No Primary Referring Unava ilable Julita Hurley Attending Unavailabl e Care Physician, No Primary Primary Care Unava ilable Care Physician, No Primary Referring Unava ilable Juan Singer Attending Unavailable Demar Hicks Attending Unavailable Care Physician, No Primary Primary Care Unava ilable Care Physician, No Primary Referring Unava ilable Care Physician, No Primary Primary Care Unava ilable Care Physician, No Primary Referring Unava ilable Arianna Copeland Attending Unavailable Care Physician, No Primary Primary Care Unava ilable Care Physician, No Primary Referring Unava ilable Gilma Bliss Attending Unavailable Care Physician, No Primary Primary Care Unava ilable Care Physician, No Primary Referring Unava ilable Gilma Bliss Attending Unavailable Care Physician, No Primary Primary Care Unava ilable Hansele Velolga lidia, Julita Referring Unavailabl e Vande Velde, Julita Attending Unavailabl e Care Physician, No Primary Primary Care Unava ilable Vande Velde, Julita Attending Unavailabl e Vande Velde, Julita Referring Unavailabl e Care Physician, No Primary Primary Care Unava ilable Vande Velde, Julita Attending Unavailabl e Vande Velde, Julita Referring Unavailabl e Care Physician, No Primary Primary Care Unava ilable Gilma Bliss Attending Unavailable MarcanthGilma dawson Referring Unavailable Care Physician, No Primary Primary Care Unava ilable Gilma Bliss Referring Unavailable Gilma Bliss Attending Unavailable GARTH BEVERLY Attending Unavailable GARTH BEVERLY Primary Care Unavailable GARTH BEVERLY Admitting Unavailable GARTH BEVERLY Admitting Unavailable GARTH BEVERLY Attending Unavailable GARTH BEVERLY Primary Care Unavailable Medications Current Medications Medication Drug Class(es) Dates Sig (Normalized) Sig (Original) Multivit 39-Ncum-Zlvvbc 1-Dha (Pnv-Dha) 27 mg iron-1 mg -300 mg capsule (6 sources) Start: 09-05-2024 Multivit 52-Acbi-Lzxcik 1-Dha (Pnv-Dha) 27 mg iron-1 mg -300 mg capsule Active 1 NMA PO DAILY September 05, 2024 1:00am Start: 09-05-2024 Multivit 47-Ir on-Folate 1-Dha (Pnv-Dha) 27 mg iron-1 mg -300 mg capsule Active 1 NMA PO DAILY September 05, 2024 12:00am naproxen 500 mg oral tablet (12 sources) Nonsteroidal Anti-inflammatory Drug Start: 12-07-2024 take 1 tablet by mouth twice daily as needed for pain Naproxen 500 mg tablet Active 500 mg PO TWICE A DAY as needed for pain December 07, 2024 12:00am administer with food or milk Start: 05-19-2023 End: 06-02-2023 take 1 tablet by mouth twice daily as needed for pain Naproxen 500 mg tablet Discontinued 500 mg PO TWICE DAILY NEEDED as needed for Pain May 19, 2023 12:00am June 02, 2023 3:17pm Completed/Discontinued Medications Medication Drug Class(es) Dates Sig (Normalized) Sig (Original) acetaminophen 325 mg / oxyCODONE hydrochloride 5 mg oral tablet (18 sources) Opioid Agonist Start: 12-07-2024 End: 12-14-2024 Oxycodone-Acetamino phen (Percocet) 5-325 mg tablet Discontinued 1 {tbl} PO EVERY 6 HOURS 10 7 December 07, 2024 December 13, 2024 12:00am December 14, 2024 12:08am Start: 09-21-2024 End: 10-06-2024 Oxycodone-Acetaminophen (Per cocet) 5-325 mg tablet Discontinued 1 {tbl} PO Q4H as needed for pain 7 3 September 21, 2024 October 06, 2024 3:31pm Start: 05-19-2023 End: 06-02-2023 Oxycodone-Acetaminophen (Per cocet) 5-325 mg tablet Discontinued 1 {tbl} PO EVERY 6 HOURS as needed for pain 20 May 19, 2023 June 02, 2023 3:17pm Blood-Glucose Meter (5 sources) Start: 03-05-2023 End: 06-02-2023 Blood-Glucose Meter Disconti nued 0 .MEDSUPPLY March 04, 2023 11:00pm June 02, 2023 2:17pm As directed- Test fasting and 2 hours after meals Start: 03-05-2023 Blood-Glucose Meter Active 0 .MEDSUPPLY March 05, 2023 12:00am As directed- Test fasting and 2 hours after meals Blood-Glucose Meter misc (6 sources) Start: 03-05-2023 End: 06-02-2023 Blood-Glucose Meter misc Dis continued 0 .MEDSUPPLY March 05, 2023 12:00am June 02, 2023 3:17pm As directed- Test fasting and 2 hours after meals Start: 03-05-2023 End: 06-02-2023 Blood-Glucose Meter misc Dis continued 0 .MEDSUPPLY March 04, 2023 11:00pm June 02, 2023 2:17pm As directed- Test fasting and 2 hours after meals docosahexaenoic acid 200 mg oral capsule (11 sources) Start: 10-16-2022 End: 06-02-2023 take 1 capsule by mouth once daily Docosahexaenoic Acid ( Dha) 200 mg capsule Discontinued 200 mg PO DAILY October 16, 2022 12:00am June 02, 2023 3:17pm 12 hr guaiFENesin 600 mg extended release oral tablet (6 sources) Start: 09-07-2024 End: 09-20-2024 take 1 tablet by mouth twice daily as needed for congestion Guaifenesin 600 mg tablet extended release 12hr Discontinued 600 mg PO TWICE A DAY as needed for congestion September 07, 2024 1:00am September 20, 2024 3:35pm ibuprofen 800 mg oral tablet (6 sources) Nonsteroidal Anti-inflammatory Drug Start: 09-21-2024 End: 12-07-2024 take 1 tablet by mouth every eight hours as needed for pain Ibuprofen 800 mg tablet Discontinued 800 mg PO Q8H as needed for pain September 21, 2024 1:00am December 07, 2024 3:32pm metFORMIN hydrochloride 500 mg oral tablet (19 sources) Biguanide Start: 03-26-2023 End: 06-02-2023 take 1 tablet by mouth once daily Metformin 500 mg tablet Discontinued 500 mg PO DAILY April 23, 2023 9:01am June 02, 2023 3:17pm methylPREDNISolone 4 mg oral tablet (6 sources) Corticosteroid Start: 09-15-2024 End: 09-20-2024 take 1 tablet by mouth once Methylprednisolone (Medrol (Jose Carlos)) 4 mg tablets,dose pack Discontinued 4 mg PO per package directions 06 01September 15, 2024 1:00am September 20, 2024 1:00am September 20, 2024 3:35pm miSOPROStol 0.2 mg oral tablet (4 sources) Prostaglandin E1 Analog Start: 12-07-2024 End: 12-14-2024 Misoprostol (Cytotec) 200 mcg tablet Discontinued 800 ug PO .complex December 07, 2024 12:00am December 14, 2024 11:47am 4 tablets orally and then repeat in 48 hours norethindrone 0.35 mg oral tablet (7 sources) Start: 06-28-2023 End: 08-11-2024 take 1 tablet by mouth once daily Norethindrone (Contraceptive) 0.35 mg tablet Discontinued 0.35 mg PO DAILY June 28, 2023 1:00am August 11, 2024 10:26am start day 1 of menstrual cycle omeprazole 20 mg delayed release oral capsule (8 sources) Proton Pump Inhibitor Start: 05-17-2023 End: 06-02-2023 take 1 capsule by mouth once daily Omeprazole 20 mg capsule,delayed release(DR/EC) Discontinued 20 mg PO DAILY May 17, 2023 12:00am June 02, 2023 3:17pm ondansetron 4 mg oral tablet (6 sources) Serotonin-3 Receptor Antagonist Start: 09-20-2024 End: 09-20-2024 take 1 tablet by mouth every six hours as needed for nausea and vomiting Ondansetron Hcl 4 mg tablet Discontinued 4 mg PO EVERY 6 HOURS as needed for nausea and vomiting 60 September 20, 2024 1:00am September 20, 2024 3:35pm Problems Active Problems Problem Classification Problem Date Documented Date Episodic/Chronic Bacterial infection; unspecified site (18 sources) Bacteria present; Translations: [Streptococcus, group B, as the cause of diseases classified elsewhere] 05-19-2023 Episodic Comment on above: treat in labor Contraceptive and procreative management (12 sources) 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; Translations: [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] 02-23-2022 Episodic Comment on above: seeing urologist in [facility], discussed RGI referral distress and abnormal forces of labor (10 sources) Arrested active phase of labor; Translations: [Secondary uterine inertia] 05-19-2023 Episodic Menstrual disorders (17 sources) Dysmenorrhea; Translations: [Dysmenorrhea, unspecified] Onset: 09-09-2024 Chronic Comment on above: US WNL Other complications of ; puerperium affecting management of mother (8 sources) Deliveries by ; Translations: [Encounter for delivery without indication] 05-19-2023 Episodic Comment on above: SM LTCS AOD 6 cm and recurrent variables girl Simon GDMA2 Other complications of (12 sources) Maternal obesity complicating , childbirth and the puerperium, antepartum; Translations: [Obesity complicating , unspecified trimester] 09-05-2024 Chronic Comment on above: HgbA1c Other complications of (1 source) Obesity complicating , unspecified trimester; Translations: [Obesity complicating , unspecified trimester] Onset: 09-21-2024 Chronic Other complications of (17 sources) High risk ; Translations: [Supervision of high risk , unspecified, unspecified trimester] 01-04-2023 Episodic Comment on above: , SARA 04/28/25, PC Simon, Kenn PRR SARA 05/30/ 3, girl, Simon Spouse Kenn Other complications of (9 sources) Abnormal findings on screening of mother; Translations: [Other abnormal findings on screening of mother] 04-30-2023 Episodic Comment on above: to l and d for exten ded monitoring Other complications of (8 sources) Variable heart decelerations; Translations: [Maternal care for abnormalities of the heart rate or rhythm, unspecified trimester, not applicable or unspecified] 05-19-2023 Episodic Other complications of (18 sources) Missed miscarriage; Translations: [Missed ] 09-20-2024 Episodic Other complications of (12 sources) History of gestational diabetes mellitus; Translations: [Supervision of with other poor reproductive or obstetric history, unspecified trimester] 09-05-2024 Episodic Comment on above: HgbA1c Other complications of (4 sources) Spotting per vagina in ; Translations: [Spotting complicating , unspecified trimester] 12-07-2024 Episodic Other female genital disorders (2 sources) Recurrent loss; 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 infertility ordered labs Other skin disorders (2 sources) Hirsutism; Translations: [Hirsutism] Episodic Polyhydramnios and other problems of amniotic cavity (20 sources) Polyhydramnios; Translations: [Polyhydramnios, unspecified trimester, not applicable or unspecified] 04-30-2023 Episodic Comment on above: CARO 29 on 04/30 Residual codes; unclassified (20 sources) Abnormal cytology findings; Translations: [Low grade squamous intraepithelial lesion (LGSIL)] Episodic Comment on above: repeat 2019 ASCUS HPV positive, 06/28/23 Neg Residual codes; unclassified (14 sources) Tobacco use and exposure - finding; Translations: [Tobacco use] 12-18-2021 Episodic Comment on above: cessation encouraged , down to 2 cig/day. Residual codes; unclassified (2 sources) Other specified postprocedural states; Translations: [Personal history of surgery to other organs] Episodic Residual codes; unclassified (12 sources) Electronic cigarette user; Translations: [Other problems related to lifestyle] 09-05-2024 Episodic Comment on above: nicotine, considerin g quitting, smoking in education provided, discussed cessation Residual codes; unclassified (6 sources) Infertile 01-04-2023 Episodic Comment on above: Natural conception. SA abnormal. OAR nl. no HSG done yet, SA improved, desires RGI consult today RGI referral discussed and submitted. Spontaneous (10 sources) with abortive outcome; Translations: [Incomplete spontaneous without complication] Onset: 01-11-2025 12-07-2024 Episodic Comment on above: GS measuring .34cm 5 5weeks with 15mm lining collapsing, reviewed options and plan cytotec. fu in 1 week. Substance-related disorders (13 sources) Cannabis abuse; Translations: [Cannabis dependence, in remission] Onset: 09-21-2024 09-05-2024 Chronic Comment on above: Pt last used 08/07/24 , informed initial and random tox screens to be done, education provided,encouraged Substance-related disorders (20 sources) Finding related to substance use; Translations: [Other psychoactive substance use, unspecified, uncomplicated] 10-16-2022 Episodic Comment on above: THC-early pregnancyr epeat random tox Past or Other Problems Problem Classification Problem Date Documented Date Episodic/Chronic Diabetes or abnormal glucose tolerance complicating ; childbirth; or the puerperium (20 sources) Gestational diabetes mellitus; Translations: [Gestational diabetes mellitus in , unspecified control] Onset: 09-21-2024 03-10-2023 Episodic Comment on above: HgbA1c Genitourinary symptoms and ill-defined conditions (13 sources) Blood in urine; Translations: [Hematuria, unspecified] Onset: 05-05-2024 09-05-2024 Episodic Other aftercare (1 source) Encounter for follow-up examination after completed treatment for conditions other than malignant neoplasm; Translations: [Follow-up examination, following surgery, unspecified] 06-02-2023 Episodic Other complications of ; puerperium affecting management of mother (3 sources) Encounter for delivery without indication; Translations: [ delivery, without mention of indication, delivered, with or without mention of antepartum condition] 05-20-2023 Episodic Other complications of (20 sources) Supervision of high risk , unspecified, unspecified trimester; Translations: [Supervision of unspecified high-risk ] Onset: 10-01-2024 11-26-2022 Episodic Other complications of (13 sources) Other abnormal findings on screening of mother; Translations: [Abnormal finding on screening] 04-30-2023 Episodic Other complications of (2 sources) Maternal care for abnormalities of the heart rate or rhythm, unspecified trimester, not applicable or unspecified; Translations: [Abnormality in heart rate or rhythm, antepartum condition or complication] 05-20-2023 Episodic Other complications of (1 source) Spotting complicating , unspecified trimester; Translations: [Spotting complicating , unspecified trimester] Onset: 12-13-2024 Episodic Other complications of (1 source) Missed ; Translations: [Missed ] Onset: 10-01-2024 Episodic Other complications of (1 source) Supervision of with other poor reproductive or obstetric history, unspecified trimester; Translations: [Supervision of with other poor reproductive or obstetric history, unspecified trimester] Onset: 09-21-2024 Episodic Other and delivery including normal (20 sources) ; Translations: [Encounter for supervision of normal , unspecified, unspecified trimester] Onset: 09-21-2024 03-05-2023 Episodic Comment on above: cytotec, GDM elects NIPT with Gen christi + GBS, NIPT low risk , carrier and afp declined, + tox for THC,nml anatomy Other upper respiratory infections (20 sources) Acute laryngitis; Translations: [Acute laryngitis] Onset: 09-15-2024 09-15-2024 Episodic Residual codes; unclassified (20 sources) Tobacco use; Translations: [Tobacco use disorder] Episodic Residual codes; unclassified (1 source) Other problems related to lifestyle; Translations: [Other problems related to lifestyle] Onset: 09-21-2024 Episodic Residual codes; unclassified (1 source) History of uterine scar from previous surgery; Translations: [History of uterine scar from previous surgery] Onset: 09-21-2024 Episodic Unclassified (11 sources) Infertile; Translations: [Infertility] Results Test Name Value Interpretation Reference Range Facility ED MED ADMINISTRATION DETAIL on 04-06-2025 ED MED ADMINISTRATION DETAIL 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 - ARIANNA KERR, : 1995, , Medication Administration Record [address] [address] [id number] 04/05/2025 Patient: ARIANNA KERR Sex: Female : 1995 Age: 29y MEASUREMENTS: Wt: 87.5 kg, Ht/Jone: 66.0 in, BMI: 31.15 ALLERGIES: No known drug allergies Medication Ordered Medication Administration Date/Time 1 of 1 Normal [facility] ED NURSES CLINICAL NOTEon ED NURSES CLINICAL NOTE Nurse Narrative - ARIANNA KERR, : 1995, , Nurse Clinical Narrative [address] [address] [id number] 04/05/2025 08:10:00 Patient: ARIANNA KERR Sex: Female : 1995 Age: 29y Disposition: Discharge to Home Disposition Decision Time: 10:33 04/05/2025 Departure Time: 10:36 04/05/2025 TRIAGE Arrived by private vehicle. Historian: (patient). Primary physician (None). Triage time: 08:10 04/05/2025. Acuity: LEVEL 3. Chief Complaint: ABDOMINAL PAIN and NAUSEA. Onset. (Wednesday). SEPSIS SCREEN: NEGATIVE. SIRS criteria negative: heart rate greater than 90. No possible sources of infection. -- 08:22 04/05/25 EDT Subha Willoughby R.N. 08:21 04/05/25. BP: 138/86 MAP: 103. HR: 91. RR: 17. O2 saturation: 97% Temperature: 98.4 F. Pain level now 0/10. -- 08:04/05/25 ARUNA Willoughby R.N. Measurements: 08:04/05/25 Wt: 87.5 kg, Ht/Jone: 66.0 in, BMI: 31.15 -- 08:04/05/25 ARUNA Willoughby R.N. Medications: no known home medications -- 08:04/05/25 ARUNA Willoughby R.N. 1 of 4 Nurse Narrative - ARIANNA KERR, : 1995, , 08:10 04/05/25. Preferred Pharmacy: ([facility]). -- 08:04/05/25 ARUNA Willoughby R.N. Allergies: no known drug allergies -- 08:04/05/25 ARUNA Willoughby R.N. Home Medications/Allergy Information Source: patient -- 08:04/05/25 ARUNA Willoughby R.N. Problems: Gestational diabetes mellitus -- 08:04/05/25 ARUNA Willoughby R.N. Surgeries: Knee Surgery -- 08:04/05/25 ARUNA Willoughby R.N. -- 08:04/05/25 ARUNA Willoughby R.N. Dilatation Curettage -- 08:04/05/25 ARUNA Willoughby R.N. History 08:04/05/25. PAST MEDICAL HX: Immunizations: up-to-date. SOCIAL HX: Smoker- current status unknown. Heavy vaping. Alcohol use. (rarely). Drug use: marijuana. The patient has not traveled outside the [place] Infectious disease exposure: No infectious disease exposure. ABUSE ASSESSMENT: The patient answered "yes" to the question(s) "Do you feel safe in your home?" and "no" to the question(s) "Are you afraid to go home?". Abuse denied. SELF HARM ASSESSMENT: Self harm assessment was performed. The patient answered "no" to the question(s) "Have you recently felt down, depressed, or hopeless?" and "Do you have thoughts of harming or killing yourself?". 2 of 4 Nurse Narrative - ARIANNA KERR, : 1995, , FALL RISK ASSESSMENT: Fall risk assessment completed. No risk factors identified. -- 08:22 04/05/25 ARUNA Willoughby R.N. Interventions 08:10 04/05/25. Advanced care plan (Full Code). -- 08:22 04/05/25 ARUNA Willoughby R.N. PHYSICAL ASSESSMENT 08:45 04/05/25. GENERAL / NEURO / PSYCH: Alert. Oriented X 4. Appears in no acute distress. ( Pt arrives ambulatory to ER#3 c/o diarrhea and nausea. Pt offers diarrhea has been going on since Wednesday. Pt states she is having upper abd pain and lower back pain worse when she has to go to the bathroom. Pt offers she was exposed to C-diff by her mother last week. She offers she has had 8 episodes this morning.). HEENT: Mucous membranes are pink. RESPIRATORY: Respirations not labored. GI / : The patient has had nausea and diarrhea. Abdomen soft and nontender. Bowel sounds within normal limits. SKIN: Skin is warm and dry. -- 09:00 04/05/25 ARUAN Willoughby R.N. NURSING PROGRESS NOTES 08:37 04/05/25. Patient ID band checked for patient name and birthdate: patient confirmed. Blood samples drawn from the right antecubital space peripheral IV site with Vacutainer 25g by wa per protocol ; labeled in presence of the patient and sent to lab: [facility] set. -- 08:41 04/05/25 ARUNA Willoughby R.N. 08:53 04/05/25. Assisted patient to bathroom; tolerated well. -- 08:55 04/05/25 ARUNA Willoughby R.N. 09:24 04/05/25. The patient reports no complaints and the patient is resting quietly. Patient waiting for lab results. -- 09:24 04/05/25 ARUNA Willoughby R.N. 09:38 04/05/25. Assisted patient to bathroom; tolerated well. -- 09:38 04/05/25 ARUNA Willoughby R.N. DISPOSITION / DISCHARGE Departure time: 10:36 04/05/2025. Condition at departure: improved. Patient verbalized understanding. Written instructions provided in Thai. The patient was discharged by the physician. The patient was discharged home and accompanied by spouse. The patient left ambulatory and via private vehicle. Spouse driving. -- 10:46 04/05/25 EDT Subha Willoughby R.N. (Electronically signed by Subha Willoughby R.N. 04/05/25 10:47:10 EDT) 3 of 4 Nurse Narrative - USHA ARIANNA, : 1995, , Generated by [facility] 4 of 4 [facility] ED ORDER SHEET (CPOE ONLY)on 04-06-2025 ED ORDER SHEET (CPOE ONLY) Order Sheet - ARIANNA KERR, : 1995, , Order Sheet [address] [address] [id number] 04/05/2025 Patient: ARIANNA KERR Sex: Female : 1995 Age: 29y MEASUREMENTS: Wt: 87.5 kg, Ht/Jone: 66.0 in, BMI: 31.15 ALLERGIES: No known drug allergies MEDICATION/IV/DRIP/FLUID ORDERS Acknowledge Order Description Priority Entered d Completed LAB ORDERS Acknowledge Order Description Priority Entered d Collected Completed CBC w Diff Stat Stat 08:20 08:33 08:39 04/05/2025 04/05/2025 04/05/2025 Subha Bautista Lemasters, D.O. R.N. R.N. CMP Stat Stat 08:20 08:33 08:39 04/05/2025 04/05/2025 04/05/2025 Subha Bautista Lemasters, D.O. R.N. R.N. Lipase Stat Stat 08:20 08:33 08:40 04/05/2025 04/05/2025 04/05/2025 Subha Bautista, 1 of 2 Order Sheet - ARIANNA KERR, : 1995, , Roberto BeverlyNViolet RVioletNViolet Stool for C. Difficile Stat 08:20 08:33 09:11 Stat 04/05/2025 04/05/2025 04/05/2025 Subha Bautista Lemasters, D.O. R.N. RVioletNViolet Stool Stat 08:20 08:33 09:11 Gastrointestinal 04/05/2025 04/05/2025 04/05/2025 Panel by PCR Subha Bautista [ESTHER] Roberto McdonnellNViolet RVioletNViolet DIAGNOSTIC STUDY ORDERS Acknowledge Order Description Priority Entered d Completed STAFF ORDERS Acknowledge Order Description Priority Entered d Collected Completed [Electronically signed by Garth Beverly D.O. (04/05/2025 10:34 EDT)] 2 of 2 Normal [facility] ED PHYSICIAN CLINICAL REPORT on 04-06-2025 ED PHYSICIAN CLINICAL REPORT Narrative - ARIANNA KERR, : 1995, , Physician Clinical Narrative [address] [address] [id number] 04/05/2025 08:10:00 Patient: ARIANNA KERR Sex: Female : 1995 Age: 29y Disposition: Discharge Disposition Decision Time: 10:33 04/05/2025 Measurements Wt: 87.5 kg, Ht/Jone: 66.0 in, BMI: 31.15 Initial Vital Sign Measured Sarah Time BP MAP HR RR O2Sat ETCO2 Temp n GCS RTS 08:21 138/86 103 91 17 97% 98.4 F 0 04/05/2025 Time Seen: 08:14 04/05/2025. Arrived- By private vehicle. Historian- patient. Independent historian- family. HISTORY OF PRESENT ILLNESS Chief Complaint: DIARRHEA. The patient has had nausea and diarrhea. No vomiting. This started 3 days and is still present. (Patient presents with diarrhea over the past 3 days. Numerous episodes per day. Both watery and just loose. Took Pepto-Bismol yesterday and now her stool is dark. Mother recently diagnosed with C diff. Patient has abdominal cramping which has resolved diarrhea. Denies any fever, chills, vomiting, urinary symptoms. No recent antibiotic use or hospitalization.). REVIEW OF SYSTEMS CONSTITUTIONAL: No fever. 1 of 9 ARIANNA Griffith, : 1995, , PAST HISTORY Gestational diabetes mellitus Surgeries: Dilatation Curettage Knee Surgery Medications: no known home medications Allergies: no known drug allergies Home Medications/Allergy Information Source: patient - Subha WilloughbyVj, 04/05/2025 08:19 EDT SOCIAL HISTORY No alcohol use or drug use. ADDITIONAL NOTES The nursing notes have been reviewed. PHYSICAL EXAM Appearance: Alert. No acute distress. Neck: Neck supple. CVS: Normal heart rate and rhythm. Heart sounds normal. Pulses normal. Respiratory: No respiratory distress. Breath sounds normal. Abdomen: Soft and nontender. Skin: Skin warm and dry. Normal skin color. Extremities: No lower extremity edema. 2 of 9 ARIANNA Griffith, : 1995, , LABS, X-RAYS, AND EKG Laboratory Tests: C DIFF COMPLETE Final ANUSHKA: 04/05/2025 08:45:00 EDT MsgRcvd: 04/05/2025 10:26 EDT Lab Test Result Reference Status Received 04/05/2025 10:26 C DIFF COMPLETE Final EDT 0{ C-DIFF TOXIN _NEGATIVE__ (NRL: NEGATIVE ) 04/05/25.1026.MKY. 04/05/2025 10:26 C-DIFF AG NEGATIVE NRL: NEGATIVE Final EDT 04/05/2025 10:26 INTERNAL NEG QC PASS Final EDT 04/05/2025 10:26 INTERNAL POS QC PASS Final EDT EXTERNAL QC 04/05/2025 10:26 YES Final DONE? EDT INTERPRETATION: POSITIVE Ag,POSITIVE Tox = C. Diff is present producing toxins POSITIVE Ag,NEGATIVE Tox = C. Diff is present NEGATICE Ag,NEGATICE Tox = C. Diff is not present A low percentage of specimens may test negative for antigen but positive for toxin. A fresh specimen should be resumbitted for retesting. CBC + DIFF Final ANUSHKA: 04/05/2025 08:37:00 EDT MsgRcvd: 04/05/2025 09:00 EDT Lab Test Result Reference Status Received 3 of 9 ARIANNA Griffith : 1995, , 04/05/2025 09:00 CBC + DIFF Final EDT CBC-COMPLETE BLOOD COUNT 04/05/2025 09:00 WBC 6.2 x 10/UL 4.5 - 10.8 Final EDT 04/05/2025 09:00 RBC 4.59 x 10/UL 4.10 - 5.30 Final EDT 04/05/2025 09:00 HEMOGLOBIN 13.8 g/dl 12.0 - 16.0 Final EDT 04/05/2025 09:00 HEMATOCRIT 39.1 % 34.0 - 46.0 Final EDT 04/05/2025 09:00 MCV 85 fl 80 - 99 Final EDT 04/05/2025 09:00 MCH 30 pg 27 - 33 Final EDT 04/05/2025 09:00 MCHC 35 X10 3 32 - 36 Final EDT 04/05/2025 09:00 RDW/CV 12.9 % 12.0 - 15.6 Final EDT 04/05/2025 09:00 PLATELET 214 x10/UL 150 - 450 Final EDT 04/05/2025 09:00 MPV 8.0 fl 6.6 - 10.5 Final EDT AUTOMATED DIFFERENTIAL 04/05/2025 09:00 NEUT % 73.7 % 46.0 - 76.0 Final EDT 15.6 % 04/05/2025 09:00 LYMPH % 20.0 - 45.0 Final Below low normal EDT 4 of 9 ARIANNA Griffith, : 1995, , 04/05/2025 09:00 MONOS % 8.7 % 0.0 - 10.0 Final EDT 04/05/2025 09:00 EO % 1.7 % 0.0 - 7.0 Final EDT 04/05/2025 09:00 BASO % 0.4 % 0.0 - 2.0 Final EDT 04/05/2025 09:00 Lymph # 0.97 x10/UL 0.80 - 2.80 Final EDT 04/05/2025 09:00 Neut # 4.57 x10/UL 1.50 - 7.10 Final EDT 04/05/2025 09:00 [place] # 0.54 x10/UL 0.20 - 1.00 Final EDT 04/05/2025 09:00 EO # 0.11 x10/UL 0.00 - 0.50 Final EDT 04/05/2025 09:00 Baso # 0.02 x10/UL 0.00 - 0.10 Final EDT 04/05/2025 09:00 MANUAL DIFF N/A New Order EDT 04/05/2025 09:00 MORPHOLOGY N/A New Order EDT CMP with eGFR Final ANUSHKA: 04/05/2025 08:37:00 EDT MsgRcvd: 04/05/2025 09:18 EDT Lab Test Result Reference Status R (more content not included)... Normal [facility] ED SUPER BILLon 04-06-2025 ED SUPER BILL JOSE Macias LEIADmitry, : 1995, , [address] [address] [id number] 04/05/2025 Patient: ARIANNA KERR Sex: Female : 1995 Age: 29y Item Facility Profession Category Description Code al Code Quantity Fee Total Nurse/E/M EMERGENCY 493980 1 $0.00 $0.00 DEPARTMEN T VISIT MODERATE SEVERITY (92063-80) Grand Total $0.00 Providers Garth Beverly D.O. Chief Complaint DIARRHEA. Principal Diagnosis Diarrhea ICD-10 Codes 1 of 2 Delores KERR ARIANNA, : 1995, , R19.7: Diarrhea, unspecified 2 of 2 Normal [facility] ED VISIT SUMMARYon ED VISIT SUMMARY Visit Overview - VIRGINIE ARIANNA Cote : 1995, , Visit Overview [address] [address] [id number] 04/05/2025 Patient: ARIANNA KERR Sex: Female : 1995 Age: 29y 04/06/2025 02:07 AM EDT ED Arrival:08:10 04/05/2025 Status: Recent Travel:no EDT Language:eng Adv Directive: Isolation Status: Infectious Disease Ethnicity:N Fall Risk:no risk Exposure:no Measurements:5'6" / 167.6 Self-Harm Status:risk Sepsis Screen:negative cm 193.0 lb / 87.5 kg Chief Complaint:ABDOMINAL PAIN, NAUSEA, (None), and (Wednesday ) ALLERGIES No Known Drug Allergies HOME MEDICATIONS None 1 of 3 Visit Overview - ARIANNA KERR, : 1995, , PAST MEDICAL HISTORY / PROBLEMS Gestational diabetes mellitus Immunizations: up-to-date PAST SURGICAL HISTORY Dilatation Curettage Knee Surgery SOCIAL HISTORY Smoking status: Yes Alcohol use: Yes Drug use: Yes ED COURSE MEDICATIONS GIVEN IN EMERGENCY DEPARTMENT IV SITE INFORMATION INTAKE OUTPUT REASSESMENT (most recent) 09:24 04/05/25. The patient reports no complaints and the patient is resting quietly. Patient waiting for lab results. VITAL SIGNS First Vitals Last Vitals Temp 08:21 04/05/25 98.4 F Temp 08:04/05/25 98.4 F BP 08:04/05/25 138/86 BP 08:04/05/25 138/86 HR 08:04/05/25 91 HR 08:04/05/25 91 RR 08:04/05/25 17 RR 08:04/05/25 17 O2 Sat 08:04/05/25 97% O2 Sat 08:04/05/25 97% Pain 08:04/05/25 0 Pain 08:04/05/25 0 2 of 3 Visit Overview - ARIANNA KERR, : 1995, , ETCO2 08:04/05/25 ETCO2 08:21 04/05/25 GCS 08:21 04/05/25 GCS 08:21 04/05/25 RTS 08:21 04/05/25 RTS 08:21 04/05/25 PROCEDURES NURSING INTERVENTIONS LABS / STUDIES LABS / STUDIES ORDERED CBC w Diff CMP Lipase Stool for C. Difficile Stool Gastrointestinal Panel by PCR [ESTHER] CLINICAL IMPRESSION DIARRHEA 3 of 3 Normal [facility] ED VITALS FLOW SHEETon 04-06 ED VITALS FLOW SHEET Vitals - NENITA KERR, : 1995, , [place] [address] [id number] 04/05/2025 Patient: ARIANNA KERR Sex: Female : 1995 Age: 29y Measurements Wt: 87.5 kg, Ht/Jone: 66.0 in, BMI: 31.15 Measured Sarah Time BP MAP HR RR O2Sat ETCO2 Temp n GCS RTS 08:21 138/86 103 91 17 97% 98.4 F 0 04/05/2025 1 of 1 Normal [facility] STOOL GI PANEL BY PCR [AUL]o n 04-06-2025 STOOL GI PANEL BY PCR [AUL] Normal [facility] Comment on above: Result Comment: SEE SCANNED REPORT Performed By: #### 2 [id number] ####[facility],[address] [place] [address] C DIFF COMPLETEon 04-05-2025 C DIFF COMPLETE C DIFF COMPLETE 0{ C-DIFF TOXIN _NEGATIVE__ (NRL: NEGATIVE ) 04/05/25.1026.MKY. C-DIFF AG NEGATIVE INTERNAL NEG QC PASS INTERNAL POS QC PASS EXTERNAL QC DONE? YES INTERPRETATION: POSITIVE Ag,POSITIVE Tox = C. Diff is present & producing toxins POSITIVE Ag,NEGATIVE Tox = C. Diff is present NEGATICE Ag,NEGATICE Tox = C. Diff is not present A low percentage of specimens may test negative for antigen but positive for toxin. A fresh specimen should be resumbitted for retesting. Normal [facility] Comment on above: Performed By: #### 2 65256 ####[facility],[address] [place] [address] CBC + DIFFon 04-05-2025 Baso # 0.02 x10EE3/UL Normal 0.00 - 0.10 [facility] Comment on above: Performed By: #### 2 73468 #### [facility],[address] [place] [address] Basophils/100 WBC (Bld) 0.4 % Normal 0.0 - 2.0 [facility] Comment on above: Performed By: #### 2 91156 #### [facility],[address] [place] [address] CBC + DIFF Normal [facility] Comment on above: Result Comment: CBC- COMPLETE BLOOD COUNT Performed By: #### 2 41223 #### [facility],[address] [place] [address] EO # 0.11 x10EE3/UL Normal 0.00 - 0.50 [facility] Comment on above: Performed By: #### 2 38459 #### [facility],[address] [place] [address] Eosinophils/100 WBC (Bld) 1.7 % Normal 0.0 - 7.0 [facility] Comment on above: Performed By: #### 2 14347 #### [facility],[address] [place] [address] Erythrocyte distribution width (RBC) [Ratio] 12.9 % Normal 12.0 - 15.6 [facility] Comment on above: Performed By: #### 2 27212 #### [place] [address] Hematocrit (Bld) [Volume fraction] 39.1 % Normal 34.0 - 46.0 [facility] Comment on above: Performed By: #### 2 66776 #### [facility],[address] [place] [address] Hemoglobin (Bld) [Mass/Vol] 13.8 g/dL Normal 12.0 - 16.0 [facility] Comment on above: Performed By: #### 2 60497 #### [facility],[address] [place] [address] Lymph # 0.97 x10EE3/UL Normal 0.80 - 2.80 [facility] Comment on above: Performed By: #### 2 63264 #### [facility],[address] [place] [address] Lymphocytes/100 WBC (Bld) 15.6 % Low 20.0 - 45.0 [facility] Comment on above: Performed By: #### 2 77426 #### [facility],[address] [place] [address] MANUAL DIFF N/A Normal [facility] Comment on above: Performed By: #### 2 42663 #### [facility],[address] [place] [address] MCH (RBC) [Entitic mass] 30 pg Normal 27 - 33 [facility] Comment on above: Performed By: #### 2 85875 #### [facility],[address] [place] [address] MCHC 35 X10 3 Normal 32 - 36 [facility] Comment on above: Performed By: #### 2 48223 #### [facility],[address] [place], [place] [id number] MCV (RBC) [Entitic vol] 85 fL Normal 80 - 99 [facility] Comment on above: Performed By: #### 2 65650 #### [facility],[address] [place] [address] [place] # 0.54 x10EE3/UL Normal 0.20 - 1.00 [facility] Comment on above: Performed By: #### 2 76396 #### [facility],[address] [place] [address] MONOS % 8.7 % Normal 0.0 - 10.0 [facility] Comment on above: Performed By: #### 2 93339 #### [facility],[address] [place], [place] [id number] Morphology Jacky (Bld) [Interp] N/A Normal [facility] Comment on above: Performed By: #### 2 16770 #### [facility],[address] [place] [address] Neut # 4.57 x10EE3/UL Normal 1.50 - 7.10 [facility] Comment on above: Performed By: #### 2 65956 #### [facility],[address] [place] [address] Neutrophils/100 WBC (Bld) 73.7 % Normal 46.0 - 76.0 [facility] Comment on above: Performed By: #### 2 94260 #### [facility],[address] [place] [address] PLATELET 214 x10EE3/UL Normal 150 - 450 [facility] Comment on above: Performed By: #### 2 21464 #### [facility],[address] [place] [address] Platelet mean volume (Bld) [Entitic vol] 8.0 fL Normal 6.6 - 10.5 [facility] Comment on above: Result Comment: AUTO MATED DIFFERENTIAL Performed By: #### 2 20676 #### [facility],[address] [place] [address] RBC 4.59 x 10EE6/UL Normal 4.10 - 5.30 [facility] Comment on above: Performed By: #### 2 24022 #### [facility],[address] [place], [place] [id number] WBC 6.2 x 10EE3/UL Normal 4.5 - 10.8 [facility] Comment on above: Performed By: #### 2 27287 #### [facility],[address] [place] [address] CMP with eGFRon 04-05-2025 AGE 29 years Normal [facility] Comment on above: Performed By: #### 2 32922 #### [facility],[address] [place] [address] Albumin [Mass/Vol] 3.7 g/dL Normal 3.4 - 5.0 [facility] Comment on above: Performed By: #### 2 15388 #### [facility],[address] [place] [address] Albumin/Globulin [Mass ratio] 1.2 {ratio} Normal 0.9 - 1.6 [facility] Comment on above: Performed By: #### 2 75187 #### [facility],[address] [place] [address] ALK PHOS 74 U/L Normal 46 - 116 [facility] Comment on above: Performed By: #### 2 45685 #### [facility],[address] [place] [address] ALT [Catalytic activity/Vol] 19 U/L Normal 16 - 63 [facility] Comment on above: Performed By: #### 2 26342 #### [facility],[address] [place] [address] Anion gap [Moles/Vol] 13 mmol/L Normal 10 - 20 [facility] Comment on above: Performed By: #### 2 53475 #### [facility],[address] [place] [address] AST [Catalytic activity/Vol] 21 U/L Normal 13 - 39 [facility] Comment on above: Performed By: #### 2 24008 #### [facility],[address] [place] [address] B/C RATIO 19 ratio Normal 0 - 30 [facility] Comment on above: Performed By: #### 2 57806 #### [facility],[address] [place] [address] Bilirubin [Mass/Vol] 0.4 mg/dL Normal 0.2 - 1.0 [facility] Comment on above: Performed By: #### 2 99998 #### [facility],[address] [place] [address] Calcium [Mass/Vol] 8.2 mg/dL Low 8.5 - 10.1 [facility] Comment on above: Performed By: #### 2 74367 #### [facility],[address] [place] [address] Chloride [Moles/Vol] 106 mmol/L Normal 98 - 107 [facility] Comment on above: Performed By: #### 2 28912 #### [facility],[address] [place] [address] CMP with eGFR Normal [facility] Comment on above: Result Comment: COMP REHENSIVE METABOLIC PANEL Performed By: #### 2 26776 #### [facility],[address] [place] [address] CO2 [Moles/Vol] 24.1 mmol/L Normal 21.0 - 32.0 [facility] Comment on above: Performed By: #### 2 08909 #### [facility],[address] [place] [address] Creatinine [Mass/Vol] 0.63 mg/dL Normal 0.55 - 1.02 [facility] Comment on above: Performed By: #### 2 88951 #### [facility],[address] [place] [address] GFR/1.73 sq M.predicted among non-blacks MDRD (S/P/Bld) [Vol rate/Area] mL/min/{1.73_m2} Normal 60 - 999 [facility] Comment on above: Performed By: #### 2 20784 #### [facility],[address] [place] [address] Result Comment: ACCO RDING TO THE NATIONAL KIDNEY DISEASE EDUCATION PROGRAM(NKDE), A NORMAL eGFR IS A VALUE GREATER THAN OR EQUAL TO 60 ML/MIN/1.73 SQ METERS. CHRONIC KIDNEY DISEASE: <60mL/MIN/1.73 SQ METERS KIDNEY FAILURE: <15mL/MIN/1.73 SQ METERS THIS TEST SHOULD ONLY BE USED FOR PATIENTS 18 YEARS OF AGE AND OLDER. Globulin (S) [Mass/Vol] 3.1 g/dL Normal 1.5 - 3.8 [facility] Comment on above: Performed By: #### 2 65380 #### [facility],[address] [place] [address]45[address] Glucose [Mass/Vol] 96 mg/dL Normal 74 - 106 [facility] Comment on above: Performed By: #### 2 60088 #### [facility],[address] [place] [address] Potassium [Moles/Vol] 3.7 mmol/L Normal 3.5 - 5.1 [facility] Comment on above: Performed By: #### 2 91713 #### [facility],[address] [place] [address] Protein [Mass/Vol] 6.8 g/dL Normal 6.4 - 8.2 [facility] Comment on above: Performed By: #### 2 70908 #### [facility],[address] [place] [address] Sodium [Moles/Vol] 139 mmol/L Normal 136 - 145 [facility] Comment on above: Performed By: #### 2 32703 #### [facility],[address] [place] [address]1963 Urea nitrogen [Mass/Vol] 12 mg/dL Normal 7 - 18 [facility] Comment on above: Performed By: #### 2 98537 #### [address] [address] LIPASEon 04-05-2025 Lipase [Catalytic activity/Vol] 36.0 U/L Normal 15.0 - 78.0 [facility] Comment on above: Result Comment: *PLE ASE NOTE THAT RANGES FOR LIPASE HAVE CHANGED OF 07/16/23 DUE TO AN ASSAY UPDATE BY THE CHIMNEY SUPERVISOR BRICK.THE NEW ASSAY RANGE IS 6-250 U/L, WITH A REFERENCE RANGE OF 16-77 U/L. Performed By: #### 2 60075 #### [facility],[address] [facility] [address] Anticardiolipin IgG, IgMon 0 01-08-2025 ANTICARDIO IgG < 9 Normal 0-14 [facility] Comment on above: Result Comment: Nega tive: <15 Indeterminate: 15 - 20 Low-Med Positive: >20 - 80 High Positive: >80 Performed By: #### L 3410.1999, L4500.0100, L700.8000, L501.9520, L501.9985, L3100.8410 ####[facility] [address] [place], [address] Anticardio.IgM < 9 Normal 0-12 [facility] Comment on above: Result Comment: Nega tive: <13 Indeterminate: 13 - 20 Low-Med Positive: >20 - 80 High Positive: >80 Performed at: [facility] [address] [id number] [employer] Flatbed Driver: Hany rCystal MD, Phone: [phone] Performed at: [facility] [address] [place] [id number] [employer] Flat[employer] Driver: Ketan Brand PhD, Phone: [phone] Performed By: #### L 3410.1999, L4500.0100, L700.8000, L501.9520, L501.9985, L3100.8410 ####[facility] [address] [place], [address] Beta-2 Glycoprot IgG, A, 01-08-2025 B2 GLYCO I IGA <9 Normal 0-25 [facility] Comment on above: Result Comment: Resu lt Units: GPI IgA units The reference interval reflects a 3SD or 99th percentile interval, which is thought to represent a potentially clinically significant result in accordance with the International Consensus Statement on the classification criteria for definitive antiphospholipid syndrome (APS). J Thromb Haem 2006;4:295-306. Performed By: #### L 3410.1999, L4500.0100, L700.8000, L501.9520, L501.9985, L3100.8410 ####[facility] [address] [place], [address] B2 GLYCO I IGG <9 Normal 0-20 [facility] Comment on above: Result Comment: Resu lt Units: GPI IgG units The reference interval reflects a 3SD or 99th percentile interval, which is thought to represent a potentially clinically significant result in accordance with the International Consensus Statement on the classification criteria for definitive antiphospholipid syndrome (APS). J Thromb Haem 2006;4:295-306. Performed By: #### L 3410.1999, L4500.0100, L700.8000, L501.9520, L501.9985, L3100.8410 ####[facility] [address] [place], [place], [id number] B2 GLYCO I IGM <9 Normal 0-32 [facility] Comment on above: Result Comment: Resu lt Units: GPI IgM units The reference interval reflects a 3SD or 99th percentile interval, which is thought to represent a potentially clinically significant result in accordance with the International Consensus Statement on the classification criteria for definitive antiphospholipid syndrome (APS). J Thromb Haem 2006;4:295-306. Performed By: #### L 3410.1999, L4500.0100, L700.8000, L501.9520, L501.9985, L3100.8410 ####[facility] [address] [place], [place], [phone] Lupus Anticoagulant Compon 0 - aPTT Coag (Bld) [Time] 32.7 s Normal 0.0-43.5 [facility] Comment on above: Performed By: #### L 3410.1999, L4500.0100, L700.8000, L501.9520, L501.9985, L3100.8410 ####[facility] [address] [place], [address] DILUTE PT (dPT) 32.0 sec Normal 0.0-47.6 [facility] Comment on above: Performed By: #### L 3410.2000, L4500.0100, L700.8000, L501.9520, L501.9985, L3100.8410 ####[facility] [address] [place], [address] dPT Conf. Ratio 0.96 Ratio Normal 0.00-1.34 [facility] Comment on above: Performed By: #### L 3410.2000, L4500.0100, L700.8000, L501.9520, L501.9985, L3100.8410 ####[facility] [address] [place], [address] DRVVT 29.8 sec Normal 0.0-47.0 [facility] Comment on above: Performed By: #### L 3410.2000, L4500.0100, L700.8000, L501.9520, L501.9985, L3100.8410 ####[facility] [address] [place], [address] Interpretation Comment: Normal . [facility] Comment on above: Result Comment: No l upus anticoagulant was detected. Performed By: #### L 3410.2000, L4500.0100, L700.8000, L501.9520, L501.9985, L3100.8410 ####[facility] [address] [place], [address] THROMBIN TIME 17.7 sec Normal 0.0-23.0 [facility] Comment on above: Performed By: #### L 3410.2000, L4500.0100, L700.8000, L501.9520, L501.9985, L3100.8410 ####[facility] [address] [place], [place], [id number] Dilute Micheal's viper venom timeOrdered By: Gilma Bliss on 01-05-2025 dRVVT Coag (PPP) [Time] 29.8 s 0.0-47.0 W [facility] Hemoglobin A1c percentageOrd ered By: Gilma Bliss on 01-05-2025 HbA1c (Bld) [Mass fraction] 5.3 % Normal <=5.6 [facility] Comment on above: Normal < 5.7 % Predi abetic 5.7 - 6.4 % Diabetic >or= 6.5 % Please note range changes. Result Comment: Norm al < 5.7 % Prediabetic 5.7 - 6.4 % Diabetic >or= 6.5 % Please note range changes. Performed By: #### L 3410.2000, L4500.0100, L700.8000, L501.9520, L501.9985, L3100.8410 #### [facility] [address] [place], [address] Serum beta 2 glycoprotein 1 IgA antibody detectionOrdered By: Gilma Bliss on 01-05-2025 Beta 2 glycoprotein 1 IgA Ql (S) <9 0-25 [facility] Comment on above: Result Units: GPI Ig A unitsThe reference interval reflects a 3SD or 99th percentileinterval, which is thought to represent a potentiallyclinically significant result in accordance with theInternational Consensus Statement on the classificationcriteria for definitive antiphospholipid syndrome (APS). JThromb Haem 2006;4:295-306. Serum beta 2 glycoprotein 1 IgG antibody detectionOrdered By: Gilma Bliss on 01-05-2025 Beta 2 glycoprotein 1 IgG Ql (S) <9 0-20 [facility] Comment on above: Result Units: GPI Ig G unitsThe reference interval reflects a 3SD or 99th percentileinterval, which is thought to represent a potentiallyclinically significant result in accordance with theInternational Consensus Statement on the classificationcriteria for definitive antiphospholipid syndrome (APS). JThromb Haem 2006;4:295-306. Serum beta 2 glycoprotein 1 IgM antibody detectionOrdered By: Gilma Bliss on 01-05-2025 Beta 2 glycoprotein 1 IgM Ql (S) <9 0-32 [facility] Comment on above: Result Units: GPI Ig M unitsThe reference interval reflects a 3SD or 99th percentileinterval, which is thought to represent a potentiallyclinically significant result in accordance with theInternational Consensus Statement on the classificationcriteria for definitive antiphospholipid syndrome (APS). JThromb Haem 2006;4:295-306. Serum cardiolipin IgG antibo dy assay by immunoassay (units/volume)Ordered By: Gilma Bliss on 01-05-2025 Cardiolipin IgG IA Qn (S) < 9 GPL U/mL 0-14 [facility] Comment on above: Negative: <15 Indete rminate: 15 - 20 Low-Med Positive: >20 - 80 High Positive: >80 Serum human chorionic gonado tropin detection for pregnancyOrdered By: Gilma Bliss on 01-05-2025 HCG ( test) Ql 4 mIU/mL <9 [facility] Comment on above: Gestational Age0.2-1 Week: 5-50 mIU/mL1-2 Weeks: 50-500 mIU/mL2-3 Weeks: 100-5000 mIU/mL3-4 Weeks: 500-10,000 mIU/mL4-5 Weeks:1000-50,000 mIU/mL5-6 Weeks: 10,000-100,000 mIU/mL6-8 Weeks: 15,000-200,000 mIU/mL2-3 Months:10,000-100,000 mIU/mL TSH DL <= 0.005 mIU/L QnOrde red By: Gilma Bliss on 01-05-2025 TSH Qn 1.480 uIU/mL 0.300-4.200 [facility] Thrombin timeOrdered By: Grupo Bliss on 01-05-2025 Thrombin time Coag (PPP) [Time] 17.7 sec 0.0-23.0 [facility] Thyroid Stim Hormone (TSH)on 01-05-2025 TSH 1.480 uIU/mL Normal 0.300-4.200 [facility] Comment on above: Performed By: #### L 3410.2000, L4500.0100, L700.8000, L501.9520, L501.9985, L3100.8410 ####[facility] [id number] [place], [address] hCG Titer Quant., Serumon HCG QUANT. 4 mIU/mL Normal <9 non-preg [facility] Comment on above: Result Comment: Gest ational Age 0.2-1 Week: 5-50 mIU/mL 1-2 Weeks: 50-500 mIU/mL 2-3 Weeks: 100-5000 mIU/mL 3-4 Weeks: 500-10,000 mIU/mL 4-5 Weeks:1000-50,000 mIU/mL 5-6 Weeks: 10,000-100,000 mIU/mL 6-8 Weeks: 15,000-200,000 mIU/mL 2-3 Months:10,000-100,000 mIU/mL Performed By: #### L 3410.2000, L4500.0100, L700.8000, L501.9520, L501.9985, L3100.8410 #### [facility] [address] [place], [place], [address] [facility] Visit Reporton 12-14-2024 [facility] Office Visit Report [facility] [address], [address] [place] [address] OFFICE VISIT Date of Service: 12/14/24 MR#: [id number] Acct: [id number] Name: ARIANNA KERR Rep #: [id number] : 1995 Provider: Dr. Gilma ortiz MD Age/Sex: 29/F [place] [facility] [place]: Signed Intake Vital Signs 12/07/24 15:26 12/14/24 11:46 12/14/24 11:47 Height 5 ft 5 in 5 ft 5 in 5 ft 5 in Weight: 199 lb 4 oz 200 lb 8 oz BMI 33.1 33.3 BP 138/92 H 130/87 H Pulse 103 H Pulse Source Monitor Pulse Oximetry (%) 98 Oxygen Delivery Method room air Intake Visit Reasons: Miscarriage FU *per 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 Required: No Is patient in pain?: Yes (some crampy pain) Allergies No Known Allergies Allergy (Verified 12/14/24 11:58) Medications ???Medication ???Instructions ???Recorded ???Confirmed ???Type multivitamin no.47-iron fum 27 1 cap PO DAILY 09/05/24 12/07/24 H istory mg-folate no.1 1 mg-dha 300 mg capsule (PNV-DHA) naproxen 500 mg tablet 500 mg PO BID PRN pain #30 tabs 12/07/24 Rx Post menopausal: No Patient : No : No PFSH Medical History Spotting in early Wears glasses Marijuana use History of steroid therapy delivery delivered Polyhydramnios affecting 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) Hirsutism Tobacco use Surgical History Previous section History of right knee surgery Family History Father Kidney disease, Onset Age: 48 Social History adopted: No household members: spouse and children housing: house number of children: 1 current occupational status: employed current occupation: [employer] current occupational exposures/hazards: No pets and animals: Yes ( doing litter) pets and animals: cat(s) and fish history of recent travel: No sexually active: Yes Smoking Status: Current every day smoker (Patient did smoke today.) tobacco type: cigarettes and e- cigarettes Tobacco: How many years used: 12 Electronic Cigarette Use: with nicotine quit status: considering quitting alcohol intake: never substance use type: former substance user Date of last use: 08/07/24 and marijuana well-balanced diet: daily or most days caffeine: Yes Type: coffee Number of servings: 1 eating out: 1-3 times/week during the past year weight has: decreased > 10 lbs what type of physical activity do you participate in: none suraj/oriental orthodox: None seatbelt use: always do you feel safe at home: Yes additional social history: Bernadette work at [employer] HPI Miscarriage FU *per Details: ARIANNA KERR is a 29 year old who presents for follow-up of early miscarriage. Pelvic ultrasound performed and lining is 6.7 mm with no intrauterine sac or pole seen. No retained products suspected. Patient states she had heavy bleeding and cramping over the weekend that has slowed down to a small amount of bleeding since. She denies any fevers or significant pelvic pain now. History 3 Elective abortions Hx Para 1 Spontaneous abortions 2 Hx # Term Pregnancies Ectopic pregnancies Hx # Pregnancies Multiple births # of living children 1 Past Pregnancies Del. Date Name GA/Weeks Outcome Route Bth Weight Gen Labor Lgth Anesthesia Del Locatn Provider FOB 05/18/23 Simon 39 live - full term 6lbs 13 oz Female epidur al [facility] GILMA BLISS KENN 09/21/24 8 spontaneous 12/07/24 spontaneous Delivery Date: 05/18/23 Last Updated by: Faith Solis aod, 9cm kw 39 gdm. Delivery Date: 09/21/24 Last Updated by: Maria Guadalupe Menezes RN D C w/JV ROS Const Constitutional: Denies fatigue, fever(s), headache(s), increased appetite, poor appetite, weight gain or weight loss : Reports as per HPI; Denies difficulty voiding, dysuria, urinary frequency, urinary incontinence, urinary hesitancy, urinary urgency, vaginal discharge, vaginal dryness, vaginal odor or vaginal pruritus Exam Const General: cooperative, healthy appearing, comfortable, no acute distress and well developed Nutritional Appearance: average body habitus Orientation: alert General: bladder normal to palpation External Female Exam: normal external appearance and normal appearance of the urethra Urethra: normal appearance of the urethra and normal palpation Speculum Exam - Vagina: normal appearance of the vagina and vaginal bleeding Speculum Exam - Cervix: normal appearance of the cervix and nontender Bimanual Exam- Vagina Uterus: no (more content not included)... Normal [facility] Office Visit Reporton 12-07-2024 [facility] Office Visit Report [facility]'s [address], [address] [place] [address] OFFICE VISIT Date of Service: 12/07/24 MR#: [id number] Acct: [id number] Name: ARIANNA KERR Rep #: [id number] : 1995 Provider: Dr. Gimla ortiz MD Age/Sex: 29/F Location[place] [facility] [place] Status: Signed Intake Vital Signs 10/06/24 15:31 12/07/24 15:26 Height 5 ft 5 in 5 ft 5 in Weight: 199 lb 4 oz BMI 33.1 BP 138/92 H Pulse 103 H Pulse Source Monitor Pulse Oximetry (%) 98 Oxygen Delivery Method room air Intake Visit Reasons: possible miscarriage/ectopic Chief Complaint: Possible miscarriage/ectopic 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 Required: No Is patient in pain?: Yes (Right Low Back) Pain scale (1-10): 2 Allergies No Known Allergies Allergy (Verified 12/07/24 15:32) Medications ???Medication ???Instructions ???Recorded ???Confirmed ???Type multivitamin no.47-iron fum 27 1 cap PO DAILY 09/05/24 12/07/24 H istory mg-folate no.1 1 mg-dha 300 mg capsule (PNV-DHA) misoprostol 200 mcg tablet 800 mcg (4 x 200 mcg) PO .complex 12/07/24 12/07/24 Rx (Cytotec) #8 tabs naproxen 500 mg tablet 500 mg PO BID PRN pain #30 tabs 12/07/24 Rx oxycodone-acetaminophen 5 mg-325 1 tab PO Q6H 7 days #10 tabs 12/0712/07/24 Rx mg tablet (Percocet) Post menopausal: No PFSH Medical History Spotting in early Wears glasses Marijuana use History of steroid therapy delivery delivered Polyhydramnios affecting 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 Gilma Bliss MD) Previous section History of right knee surgery Family History Father Kidney disease, Onset Age: 48 Social History adopted: No household members: spouse and children housing: house number of children: 1 current occupational status: employed current occupation: [employer] current occupational exposures/hazards: No pets and animals: Yes ( doing litter) pets and animals: cat(s) and fish history of recent travel: No sexually active: Yes Smoking Status: Current every day smoker (Patient did smoke today.) tobacco type: cigarettes and e- cigarettes Tobacco: How many years used: 12 Electronic Cigarette Use: with nicotine quit status: considering quitting alcohol intake: never substance use type: former substance user Date of last use: 08/07/24 and marijuana well-balanced diet: daily or most days caffeine: Yes Type: coffee Number of servings: 1 eating out: 1-3 times/week during the past year weight has: decreased > 10 lbs what type of physical activity do you participate in: none suraj/oriental orthodox: None seatbelt use: always do you feel safe at home: Yes additional social history: Kenn-Both work at [employer] HPI possible miscarriage/ectopic Details: ARIANNA KERR is a 29 year old who presents for third . home rafael tpositive on , bleeding started wednesday and she is having cramping in her lower abdomen today. she had quants int he 500s and now down to 380. GS seen in uterine lining that is collapsing .34cm with 15mmlining normal adnexa normal ovaries no free fluid. History 3 Elective abortions Hx Para 1 Spontaneous abortions 1 Hx # Term Pregnancies Ectopic pregnancies Hx # Pregnancies Multiple births # of living children 1 Past Pregnancies Del. Date Name GA/Weeks Outcome Route Bth Weight Infant Gen Labor Lgth Anesthesia Del Locatn Provider FOB 05/18/23 Simon 39 live - full term 6lbs 13 oz Female epidur al [facility] GILMA BLISS KENN 09/21/24 8 spontaneous Delivery Date: 05/18/23 Last Updated by: Faith Solis aod, 9cm sm kw 39 gdm. Delivery Date: 09/21/24 Last Updated by: Maria Guadalupe Menezes RN D C w/JV ROS Const Constitutional: Denies fatigue, fever(s), headache(s), increased appetite, poor appetite, weight gain or weight loss : Reports as per HPI; Denies difficulty voiding, dysuria, urinary frequency, urinary incontinence, urinary hesitancy, urinary urgency, vaginal discharge, vaginal dryness, vaginal odor or vaginal pruritus Exam Const General: cooperative, healthy appearing, comfortable, no acute distress and well developed Nutritional Appearance: average body habitus Orientation: alert External Female Exam: normal external appearance and normal appearance of the urethra Urethra: normal appearance of the urethra and normal palpation Speculum Exam - Vagina: normal appearance of the vagina and vaginal bleeding Spec (more content not included)... Normal [facility] Serum human chorionic gonado tropin detection for pregnancyOrdered By: Gilma Bliss on 12-07-2024 HCG ( test) Ql 380 mIU/mL High <9 [facility] Comment on above: Gestational Age0.2-1 Week: 5-50 mIU/mL1-2 Weeks: 50-500 mIU/mL2-3 Weeks: 100-5000 mIU/mL3-4 Weeks: 500-10,000 mIU/mL4-5 Weeks:1000-50,000 mIU/mL5-6 Weeks: 10,000-100,000 mIU/mL6-8 Weeks: 15,000-200,000 mIU/mL2-3 Months:10,000-100,000 mIU/mL hCG Titer Quant., Serumon HCG QUANT. 380 mIU/mL High <9 non-preg [facility] Comment on above: Result Comment: Gest ational Age 0.2-1 Week: 5-50 mIU/mL 1-2 Weeks: 50-500 mIU/mL 2-3 Weeks: 100-5000 mIU/mL 3-4 Weeks: 500-10,000 mIU/mL 4-5 Weeks:1000-50,000 mIU/mL 5-6 Weeks: 10,000-100,000 mIU/mL 6-8 Weeks: 15,000-200,000 mIU/mL 2-3 Months:10,000-100,000 mIU/mL Performed By: #### L 700.8000 ####[facility] [id number] [place], [place], [id number] Serum human chorionic gonado tropin detection for pregnancyOrdered By: Julita Leal on 12-05-2024 HCG ( test) Ql 552 mIU/mL High <9 [facility] Comment on above: Gestational Age0.2-1 Week: 5-50 mIU/mL1-2 Weeks: 50-500 mIU/mL2-3 Weeks: 100-5000 mIU/mL3-4 Weeks: 500-10,000 mIU/mL4-5 Weeks:1000-50,000 mIU/mL5-6 Weeks: 10,000-100,000 mIU/mL6-8 Weeks: 15,000-200,000 mIU/mL2-3 Months:10,000-100,000 mIU/mL hCG Titer Quant., Serumon HCG QUANT. 552 mIU/mL High <9 non-preg [facility] Comment on above: Order Comment: palmer smith from [place], 2nd HCG level Result Comment: Gest ational Age 0.2-1 Week: 5-50 mIU/mL 1-2 Weeks: 50-500 mIU/mL 2-3 Weeks: 100-5000 mIU/mL 3-4 Weeks: 500-10,000 mIU/mL 4-5 Weeks:1000-50,000 mIU/mL 5-6 Weeks: 10,000-100,000 mIU/mL 6-8 Weeks: 15,000-200,000 mIU/mL 2-3 Months:10,000-100,000 mIU/mL Performed By: #### L 700.8000 #### [facility] [address] [place], [address] CBC + DIFFon 12-03-2024 Baso # 0.02 x10EE3/UL Normal 0.00 - 0.10 [facility] Comment on above: Performed By: #### 2 [id number] #### [facility],[address] [place] [address]226 Basophils/100 WBC (Bld) 0.2 % Normal 0.0 - 2.0 [facility] Comment on above: Performed By: #### 2 87905 #### [facility],[address] [place] [address]70 CBC + DIFF Normal [facility] Comment on above: Result Comment: CBC- COMPLETE BLOOD COUNT Performed By: #### 2 [id number] #### [facility],[address] [place] [address] EO # 0.16 x10EE3/UL Normal 0.00 - 0.50 [facility] Comment on above: Performed By: #### 2 72890 #### [facility],[address] [place] [address]127 Eosinophils/100 WBC (Bld) 2.3 % Normal 0.0 - 7.0 [facility] Comment on above: Performed By: #### 2 79365 #### [facility],[address] [place] [address] Erythrocyte distribution width (RBC) [Ratio] 13.0 % Normal 12.0 - 15.6 [facility] Comment on above: Performed By: #### 2 82259 #### [facility],[address] [place] [address] Hematocrit (Bld) [Volume fraction] 39.8 % Normal 34.0 - 46.0 [facility] Comment on above: Performed By: #### 2 77926 #### [facility],[address] [place] [address] Hemoglobin (Bld) [Mass/Vol] 14.3 g/dL Normal 12.0 - 16.0 [facility] Comment on above: Performed By: #### 2 51186 #### [facility],[address] [place] [address]12 Lymph # 1.41 x10EE3/UL Normal 0.80 - 2.80 [facility] Comment on above: Performed By: #### 2 58299 #### [facility],[address] [place] [address]122 Lymphocytes/100 WBC (Bld) 20.4 % Normal 20.0 - 45.0 [facility] Comment on above: Performed By: #### 2 87462 #### [facility],[address] [place] [address] 71014 MANUAL DIFF N/A Normal [facility] Comment on above: Performed By: #### 2 77037 #### [facility],[address] [place] [address] MCH (RBC) [Entitic mass] 31 pg Normal 27 - 33 [facility] Comment on above: Performed By: #### 2 08569 #### [facility],[address] [place] [address] MCHC 36 X10 3 Normal 32 - 36 [facility] Comment on above: Performed By: #### 2 08161 #### [facility],[address] [place] [address] MCV (RBC) [Entitic vol] 87 fL Normal 80 - 99 [facility] Comment on above: Performed By: #### 2 66252 #### [facility],[address] [place] [address] [place] # 0.33 x10EE3/UL Normal 0.20 - 1.00 [facility] Comment on above: Performed By: #### 2 34731 #### [facility],[address] [place] [address] MONOS % 4.8 % Normal 0.0 - 10.0 [facility] Comment on above: Performed By: #### 2 13400 #### [facility],[address] [place] [address] Morphology Jacky (Bld) [Interp] N/A Normal [facility] Comment on above: Performed By: #### 2 21167 #### [facility],[address] [place] [address] Neut # 5.00 x10EE3/UL Normal 1.50 - 7.10 [facility] Comment on above: Performed By: #### 2 25329 #### [facility],[address] [place] [address] Neutrophils/100 WBC (Bld) 72.3 % Normal 46.0 - 76.0 [facility] Comment on above: Performed By: #### 2 67142 #### [facility],[address] [place] [address]0743 PLATELET 261 x10EE3/UL Normal 150 - 450 [facility] Comment on above: Performed By: #### 2 23888 #### [facility],[address] [place] [address] 64432 Platelet mean volume (Bld) [Entitic vol] 7.9 fL Normal 6.6 - 10.5 [facility] Comment on above: Result Comment: AUTO MATED DIFFERENTIAL Performed By: #### 2 83042 #### [facility],[address] [place] [address] 81645 RBC 4.56 x 10EE6/UL Normal 4.10 - 5.30 [facility] Comment on above: Performed By: #### 2 00099 #### [facility],[address] [place] [address] 02294 WBC 6.9 x 10EE3/UL Normal 4.5 - 10.8 [facility] Comment on above: Performed By: #### 2 75166 #### [facility],[address] [place] [address]273 ED MED ADMINISTRATION DETAIL on 12-03-2024 ED MED ADMINISTRATION DETAIL 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 Administration Record [address] [address] [id number] 12/03/2024 Patient: ARIANNA KERR Sex: Female : 1995 Age: 29y MEASUREMENTS: Wt: 89.8 kg, Ht/Jone: 66.0 in, BMI: 31.96 ALLERGIES: No known drug allergies Medication Ordered Medication Administration Date/Time 1 of 1 Normal [facility] ED NURSES CLINICAL NOTEon ED NURSES CLINICAL NOTE Nurse Narrative Nurse Clinical Narrative [address] [address] [id number] 12/03/2024 10:50:00 Patient: ARIANNA KERR Sex: Female : 1995 Age: 29y Disposition: Discharge to Home Disposition Decision Time: 12:20 12/03/2024 Departure Time: 12:43 12/03/2024 TRIAGE Arrived by private vehicle. Historian: (patient). Triage time: 10:59 12/03/2024. Acuity: LEVEL 3. Chief Complaint: ABDOMINAL CRAMPS and SPOTTING. Alert. No acute distress. This started last night. SEPSIS SCREEN: NEGATIVE. SIRS criteria negative. No possible sources of infection. -- 11:12/03/24 EDT Teresita Sharma R.N. 11:12/03/24. BP: 130/84 MAP: 99. HR: 87. RR: 16. O2 saturation: 98% Temperature: 99 F. Pain level now 10/26. -- 11:12/03/24 EDT Teresita Sharma R.N. Measurements: 11:12/03/24 Wt: 89.8 kg, Ht/Jone: 66.0 in, BMI: 31.96 -- 11:12/03/24 EDT Teresita Sharma R.N. Medications: Complete oral -- 11:12/03/24 EDT Teresita Sharma R.N. 1 of 3 Nurse Narrative Allergies: no known drug allergies -- 11:12/03/24 KARLAT Teresita Sharma R.N. Problems: no known problem -- 11:12/03/24 KARLAT Teresita Sharma R.N. Surgeries: Knee Surgery -- 11:12/03/24 KARLAT Teresita Sharma R.N. -- 11:12/03/24 KARLAT Teresita Sharma R.N. History 10:59 12/03/24. PAST MEDICAL HX: LNMP: 2. Para 1. (October 25). status: currently . In 1st trimester. confirmed with home test. Has had no care. G 2. P 1. SOCIAL HX: Former smoker, end date 10/2024. The patient has not traveled outside the [place] Infectious disease exposure: No infectious disease exposure. ABUSE ASSESSMENT: The patient answered "yes" to the question(s) "Do you feel safe in your home?" and "no" to the question(s) Are you afraid to go home?". SELF HARM ASSESSMENT: Self harm assessment was performed. The patient answered "no" to the question(s) "Have you recently felt down, depressed, or hopeless?" and "Do you have thoughts of harming or killing yourself?". FALL RISK ASSESSMENT: Fall risk assessment completed. No risk factors identified. -- 11:12/03/24 EDT Teresita Sharma R.N. 11:12/03/24. PAST MEDICAL HX: LNMP: 3. Abortions 1. status: currently . G 3. P 1. Ab 1. -- 11:12/03/24 EDT Teresita Sharma R.N. 2 of 3 Nurse Narrative Interventions 10:59 12/03/24. Identification band on patient. Advanced care plan discussed with patient. Patient does not have advanced directive. -- 11:12/03/24 EDT Teresita Sharma R.N. PHYSICAL ASSESSMENT 11:03 12/03/24. GI / : Abdominal tenderness in the lower abdomen (cramping). -- 11:12/03/24 EDT Teresita Sharma R.N. 11:12/03/24. Ambulatory to room. GENERAL / NEURO / PSYCH: Alert. Oriented X 4. Appears in no acute distress. HEENT: Mucous membranes are pink. RESPIRATORY: Respirations not labored. Breath sounds within normal limits. CVS: Normal heart rate and rhythm. Capillary refill less than 2 seconds. GI / : Abdomen soft and nontender. Bowel sounds within normal limits. Vaginal bleeding present. EXTREMITIES: No lower extremity edema. SKIN: Skin is warm and dry. -- 11:12/03/24 EDT Teresita Sharma R.N. NURSING PROGRESS NOTES 11:12/03/24. Side rails up x 2. Bed placed in lowest position. Brakes of bed on. -- :12/03/24 KARLAT Teresita Sharma R.N. DISPOSITION / DISCHARGE Departure time: 12:43 12/03/2024. Condition at departure: unchanged. No learning barriers present. Discharge instructions provided and reviewed with the patient. Reviewed referrals. Patient verbalized understanding. Written instructions provided in Thai. The patient was discharged by the physician. The patient was discharged home. The patient left ambulatory and via private vehicle. -- 12:48 12/03/24 EDT Teresita Sharma R.N. 12:43 12/03/24. BP: 122/80 MAP: 94. HR: 80. RR: 16. O2 saturation: 98% -- 12:47 12/03/24 EDT Teresita Sharma R.N. (Electronically signed by Teresita Sharma R.N. 12/03/24 22:10:39 EDT) Generated by [facility] 3 of 3 Normal [facility] ED ORDER SHEET (CPOE ONLY)on 12-03-2024 ED ORDER SHEET (CPOE ONLY) Order Sheet Order Sheet [address] [place] [address] [id number] 12/03/2024 Patient: ARIANNA KERR Sex: Female : 1995 Age: 29y MEASUREMENTS: Wt: 89.8 kg, Ht/Jone: 66.0 in, BMI: 31.96 ALLERGIES: No known drug allergies MEDICATION/IV/DRIP/FLUID ORDERS Order Description Priority Entered Acknowledged Completed LAB ORDERS Order Description Priority Entered Acknowledged Collected Completed CBC w Diff Stat Stat 11:07 12/03/2024 11:12 12/03/2024 11:45 12/03/2024 Roberto Rdz R.N. [place], R.N. Urinalysis Stat Stat 11:07 12/03/2024 11:12 12/03/2024 11:45 12/03/2024 Roberto Rdz R.N. [place], R.N. Beta-HCG, Quant Stat 11:07 12/03/2024 11:12 12/03/2024 11:45 12/03/2024 Serum Stat Roberto Rdz R.N. [place], R.N. DIAGNOSTIC STUDY ORDERS 1 of 2 Order Sheet Order Description Priority Entered Acknowledged Completed STAFF ORDERS Order Description Priority Entered Acknowledged Collected Completed [Electronically signed by Garth Beverly D.O. (12/03/2024 12:23 EDT)] 2 of 2 Normal [facility] ED PHYSICIAN CLINICAL REPORT on 12-03-2024 ED PHYSICIAN CLINICAL REPORT Narrative Physician Clinical Narrative [facility] [address] [place] [address] [phone] 12/03/2024 10:50:00 Patient: ARIANNA KERR Sex: Female : 1995 Age: 29y Disposition: Discharge Disposition Decision Time: 12:20 12/03/2024 Measurements Wt: 89.8 kg, Ht/Jone: 66.0 in, BMI: 31.96 Initial Vital Sign Measured Time BP MAP HR RR O2Sat ETCO2 Temp Pain GCS RTS 11:05 12/03/2024 130/84 99 87 16 98% 99.0 F 4 Time Seen: 10:55 12/03/2024. Arrived- By private vehicle. Historian- patient. HISTORY OF PRESENT ILLNESS Chief Complaint: VAGINAL BLEEDING. This started today. ( at approximately 5-6 weeks presents with concern for vaginal spotting. Began this morning. Lower abdominal cramping. Intermittent. Denies any fever, nausea, vomiting, urinary symptoms.). REVIEW OF SYSTEMS GI: No nausea, vomiting or diarrhea. PAST HISTORY no known problem 1 of 7 Narrative Surgeries: Knee Surgery Medications: Complete oral Allergies: no known drug allergies SOCIAL HISTORY No alcohol use or drug use. ADDITIONAL NOTES The nursing notes have been reviewed. PHYSICAL EXAM Vital Signs: Have been reviewed. Appearance: Alert. No acute distress. Neck: Neck supple. Respiratory: No respiratory distress. Breath sounds normal. Abdomen: Soft and nontender. Skin: Skin warm and dry. Normal skin color. LABS, X-RAYS, AND EKG Laboratory Tests: CBC + DIFF Final ANUSHKA: 12/03/2024 11:15:00 EDT MsgRcvd: 12/03/2024 11:49 EDT Lab Test Result Reference Status Received Comments 2 of 7 Narrative Lab Test Result Reference Status Received Comments 12/03/2024 11:49 CBC-COMPLETE CBC + DIFF Final EDT BLOOD COUNT 12/03/2024 11:49 WBC 6.9 x 10/UL 4.5 - 10.8 Final EDT 12/03/2024 11:49 RBC 4.56 x 10/UL 4.10 - 5.30 Final EDT 12/03/2024 11:49 HEMOGLOBIN 14.3 g/dl 12.0 - 16.0 Final EDT 12/03/2024 11:49 HEMATOCRIT 39.8 % 34.0 - 46.0 Final EDT 12/03/2024 11:49 MCV 87 fl 80 - 99 Final EDT 12/03/2024 11:49 MCH 31 pg 27 - 33 Final EDT 12/03/2024 11:49 MCHC 36 X10 3 32 - 36 Final EDT 12/03/2024 11:49 RDW/CV 13.0 % 12.0 - 15.6 Final EDT 12/03/2024 11:49 PLATELET 261 x10/UL 150 - 450 Final EDT 12/03/2024 11:49 AUTOMATED MPV 7.9 fl 6.6 - 10.5 Final EDT DIFFERENTIAL 12/03/2024 11:49 NEUT % 72.3 % 46.0 - 76.0 Final EDT 12/03/2024 11:49 LYMPH % 20.4 % 20.0 - 45.0 Final EDT 3 of 7 Narrative Lab Test Result Reference Status Received Comments 12/03/2024 11:49 MONOS % 4.8 % 0.0 - 10.0 Final EDT 12/03/2024 11:49 EO % 2.3 % 0.0 - 7.0 Final EDT 12/03/2024 11:49 BASO % 0.2 % 0.0 - 2.0 Final EDT 12/03/2024 11:49 Lymph # 1.41 x10/UL 0.80 - 2.80 Final EDT 12/03/2024 11:49 Neut # 5.00 x10/UL 1.50 - 7.10 Final EDT 12/03/2024 11:49 [place] # 0.33 x10/UL 0.20 - 1.00 Final EDT 12/03/2024 11:49 EO # 0.16 x10/UL 0.00 - 0.50 Final EDT 12/03/2024 11:49 Baso # 0.02 x10/UL 0.00 - 0.10 Final EDT 12/03/2024 11:49 MANUAL DIFF N/A New Order EDT 12/03/2024 11:49 MORPHOLOGY N/A New Order EDT PREG SERUM QUANT Final ANUSHKA: 12/03/2024 11:30:00 EDT MsgRcvd: 12/03/2024 12:15 EDT Lab Test Result Reference Status Received Comments 4 of 7 Narrative Lab Test Result Reference Status Received Comments Reference Range: Male: <5 Female: Non: <5 1 - 7 days : 5 - 50 1 - 2 weeks: 50 - 500 2 - 3 weeks: 100 - 5000 3 - 4 weeks: 500 - 10,000 HCG 12/03/2024 12:15 4 - 5 weeks: 509 Final QUANTITATIVE EDT 1000 - 50,000 5 - 6 weeks: 10,000 - 100,000 6 - 8 weeks: 15,000 - 200,000 2 - 3 months: 10,000 - 100,000 2ND TRIMESTER 3000-50,000 3RD TRIMESTER 1000-50,000 URINALYSIS Final ANUSHKA: 12/03/2024 11:15:00 EDT MsgRcvd: 12/03/2024 12:00 EDT Lab Test Result Reference Status Received Comments 5 of 7 Narrative Lab Test Result Reference Status Received Comments 12/03/2024 12:00 URINALYSIS Final URINALYSIS EDT 12/03/2024 12:00 Specimen Type R New Order EDT NORMAL: 12/03/2024 12:00 Color p.yel Final YELLOW EDT NORMAL: 12/03/2024 12:00 Clarity clear Final CLEAR EDT NORMAL: 12/03/2024 12:00 ph 6 Final 5.0-8.0 EDT NORMAL: 12/03/2024 12:00 Protein NEG Final NEGATIVE EDT NORMAL: 12/03/2024 12:00 Glucose NORM Final NORMAL EDT NORMAL: 12/03/2024 12:00 Ketone NEG Final NEGATIVE EDT NORMAL: 12/03/2024 12:00 Bilirubin NEG Final NEGATIVE EDT NORMAL: 12/03/2024 12:00 Blood NEG Final NEGATIVE EDT NORMAL: 12/03/2024 12:00 Urobilinog NORM Final NORMAL EDT NORMAL: 12/03/2024 12:00 Sp [place] 1.010 Final 1.010-1.030 EDT NORMAL: 12/03/2024 12:00 Nitrite NEG Final NEGATIVE E (more content not included)... Normal [facility] ED SUPER BILLon 12-03-2024 ED SUPER BILL Superbill [address] [address] [phone] 12/03/2024 Patient: ARIANNA KERR Sex: Female : 1995 Age: 29y Item Professional Category Description Facility Code Code Quantity Fee Total Nurse/E/M EMERGENCY 232269 1 $0.00 $0.00 DEPARTMENT VISIT LIMITED/MINOR PROB (28609-56) Grand Total $0.00 Providers Garth Beverly D.O. Chief Complaint VAGINAL BLEEDING. Principal Diagnosis Threatened . ICD-10 Codes 1 of 2 [facility] [place] O20.0: Threatened 2 of 2 [facility] ED VISIT SUMMARYon ED VISIT SUMMARY Visit Overview Visit Overview [address] [address] [id number] 12/03/2024 Patient: ARIANNA KERR Sex: Female : 1995 Age: 29y 12/03/2024 10:10 PM EDT ED Arrival:10:50 12/03/2024 EDT Status: Recent Travel: Language:eng Adv Directive: Isolation Status: Ethnicity:N Fall Risk: Infectious Disease Exposure: Measurements:5'6" / 167.6 Self-Harm Status: Sepsis Screen: cm 198.0 lb / 89.8 kg Chief Complaint: ALLERGIES No Known Drug Allergies HOME MEDICATIONS Complete oral PAST MEDICAL HISTORY / PROBLEMS None PAST SURGICAL HISTORY 1 of 3 Visit Overview Knee Surgery SOCIAL HISTORY ED COURSE MEDICATIONS GIVEN IN EMERGENCY DEPARTMENT IV SITE INFORMATION INTAKE OUTPUT REASSESMENT (most recent) VITAL SIGNS First Vitals Last Vitals Temp 11:05 12/03/24 99.0 F Temp 12:43 12/03/24 BP 11:05 12/03/24 130/84 BP 12:43 12/03/24 122/80 HR 11:05 12/03/24 87 HR 12:43 12/03/24 80 RR 11:05 12/03/24 16 RR 12:43 12/03/24 16 O2 Sat 11:05 12/03/24 98% O2 Sat 12:43 12/03/24 98% Pain 11:05 12/03/24 4 Pain 12:43 12/03/24 ETCO2 11:05 12/03/24 ETCO2 12:43 12/03/24 GCS 11:05 12/03/24 GCS 12:43 12/03/24 RTS 11:05 12/03/24 RTS 12:43 12/03/24 PROCEDURES NURSING INTERVENTIONS LABS / STUDIES LABS / STUDIES ORDERED Beta-HCG, Quant Serum CBC w Diff Urinalysis 2 of 3 Visit Overview CLINICAL IMPRESSION THREATENED 3 of 3 Normal [facility] ED VITALS FLOW SHEETon 12-03 ED VITALS FLOW SHEET Vitals Vital Sign Flow Sheet [address] [address] [id number] 12/03/2024 Patient: ARIANNA KERR Sex: Female : 1995 Age: 29y Measurements Wt: 89.8 kg, Ht/Jone: 66.0 in, BMI: 31.96 Measured Time BP MAP HR RR O2Sat ETCO2 Temp Pain GCS RTS 12:43 12/03/2024 122/80 94 80 16 98% 11:05 12/03/2024 130/84 99 87 16 98% 99.0 F 4 1 of 1 Normal [facility] PREG SERUM QUANTon HCG QUANTITATIVE 509 Normal [facility] Comment on above: Result Comment: Refe rence Range: Male: <5 Female: Non: <5 1 - 7 days : 5 - 50 1 - 2 weeks: 50 - 500 2 - 3 weeks: 100 - 5000 3 - 4 weeks: 500 - 10,000 4 - 5 weeks: 1000 - 50,000 5 - 6 weeks: 10,000 - 100,000 6 - 8 weeks: 15,000 - 200,000 2 - 3 months: 10,000 - 100,000 2ND TRIMESTER 3000-50,000 3RD TRIMESTER 1000-50,000 Performed By: #### 2 24354 ####[facility],[address] [place], [place] [id number] URINALYSISon 12-03-2024 Bilirubin Ql (U) Negative Normal NORMAL: NEGATIVE [facility] Comment on above: Performed By: #### 2 12422 #### [facility],[address] [place] [address] Clarity (U) clear Normal NORMAL: CLEAR [facility] Comment on above: Performed By: #### 2 33306 #### [facility],[address] [place], [place] [id number] Color (U) p.yel Normal NORMAL: YELLOW [facility] Comment on above: Performed By: #### 2 32783 #### [facility],[address] [place] [address] Glucose Ql (U) NORM Normal NORMAL: NORMAL [facility] Comment on above: Performed By: #### 2 26542 #### [facility],[address] [place] [address] Hemoglobin Ql (U) Negative Normal NORMAL: NEGATIVE [facility] Comment on above: Performed By: #### 2 43037 #### [facility],[address] [place] [address] Ketone Negative Normal NORMAL: NEGATIVE [facility] Comment on above: Performed By: #### 2 05756 #### [facility],[address] [place] [address] Leukocytes Negative Normal NORMAL: NEGATIVE [facility] Comment on above: Performed By: #### 2 11403 #### [facility],[address] [place] [address] Nitrite Ql (U) Negative Normal NORMAL: NEGATIVE [facility] Comment on above: Performed By: #### 2 02182 #### [facility],[address] [place] [address] pH (U) 6 [pH] Normal NORMAL: 5.0-8.0 [facility] Comment on above: Performed By: #### 2 53053 #### [facility],[address] [place] [address] Protein Ql (U) Negative Normal NORMAL: NEGATIVE [facility] Comment on above: Performed By: #### 2 30149 #### [facility],[address] [place] [address] Sp [place] 1.010 Normal NORMAL: 1.010-1.030 [facility] Comment on above: Performed By: #### 2 30626 #### [facility],[address] [place] [address] Specimen Type R Normal [facility] Comment on above: Performed By: #### 2 00002 #### [facility],[address] [place] [address] Urinalysis dipstick W Reflex Microscopic panel (U) NOT INDICATED Normal [facility] Comment on above: Performed By: #### 2 59736 #### [facility],[address] [place] [address] Urobilinog NORM Normal NORMAL: NORMAL [facility] Comment on above: Performed By: #### 2 26647 #### [facility],[address] [place] [address] [facility] Visit Reporton 10-06-2024 [facility] Visit Report [facility] [address], [address] [place] [address] OFFICE VISIT Date of Service: 10/06/24 MR#: [id number] Acct: [id number] Name: ARIANNA KERR Rep #: [id number] : 1995 Provider: ADDI Bradford ams Age/Sex: 29/F Location[place] [facility] Status: Signed Intake Vital Signs 09/20/24 10:20 09/21/24 13:22 10/06/24 15:30 10/06/24 15:31 Height 5 ft 5 in 5 ft 5 in 5 ft 5 in 5 ft 5 in Weight: 208 lb BMI 34.6 BP 119/84 H Intake Visit Reasons: 2 wk Suction D C 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 Required: No Is patient in pain?: No Allergies No Known Allergies Allergy (Verified 10/06/24 15:31) Medications ???Medication ???Instructions ???Recorded ???Confirmed ???Type multivitamin no.47-iron fum 27 1 cap PO DAILY 09/05/24 10/06/24 H istory mg-folate no.1 1 mg-dha 300 mg capsule (PNV-DHA) ibuprofen 800 mg tablet 800 mg PO Q8H PRN pain #20 tabs 10/06/24 Rx Post menopausal: No Patient : No PFSH Medical History Wears glasses Marijuana use History of steroid therapy delivery delivered Polyhydramnios affecting 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) Hirsutism Tobacco use Surgical History Previous section History of right knee surgery Family History Father Kidney disease, Onset Age: 48 Social History adopted: No household members: spouse and children housing: house number of children: 1 current occupational status: employed current occupation: [employer] current occupational exposures/hazards: No pets and animals: Yes ( doing litter) pets and animals: cat(s) and fish history of recent travel: No sexually active: Yes Smoking Status: Current every day smoker (Patient did smoke today.) tobacco type: cigarettes and e- cigarettes Tobacco: How many years used: 12 Electronic Cigarette Use: with nicotine quit status: considering quitting alcohol intake: never substance use type: former substance user Date of last use: 08/07/24 and marijuana well-balanced diet: daily or most days caffeine: Yes Type: coffee Number of servings: 1 eating out: 1-3 times/week during the past year weight has: decreased > 10 lbs what type of physical activity do you participate in: none suraj/oriental orthodox: None seatbelt use: always do you feel safe at home: Yes additional social history: [employer] work at [employer] HPI 2 wk Suction D C Details: ARIANNA KERR is a 29 year old who presents for 2 week follow up D C with JV. Denies fever, discharge or vaginal bleeding. Struggling emotionally coming into office but feels it is getting better. will keep us updated if she feels she needs resources. Declines counseling and medications. History 2 Elective abortions Hx Para 1 Spontaneous abortions 1 Hx # Term Pregnancies Ectopic pregnancies Hx # Pregnancies Multiple births # of living children 1 Past Pregnancies Del. Date Name GA/Weeks Outcome Route Bth Weight Gen Labor Lgth Anesthesia Del Locatn Provider FOB 05/18/23 Simon 39 live - full term 6lbs 13 oz Female epidur al [facility] GILMA HAWK 09/21/24 8 spontaneous Delivery Date: 05/18/23 Last Updated by: Faith Solis aod, 9cm sm kw 39 gdm. Delivery Date: 09/21/24 Last Updated by: TERRI Fabian C w/JV ROS Const Constitutional: Reports system reviewed and no additional complaints, except as documented Cardio Card: Reports system reviewed and no additional complaints, except as documented Resp Resp: Reports system reviewed and no additional complaints, except as documented GI GI: Reports system reviewed and no additional complaints, except as documented : Reports system reviewed and no additional complaints, except as documented; Denies difficulty voiding, dysuria or urinary frequency Skin Skin/Breast: Reports system reviewed and no additional complaints, except as documented Neuro Neuro: Reports system reviewed and no additional complaints, except as documented Psych Psych: Reports system reviewed and no additional complaints, except as documented Exam Const General: cooperative, healthy appearing, comfortable and no acute distress Resp Effort Inspection: normal respiratory effort, able to speak in complete sentences and symmetric chest movement GI Inspection: normal to inspection Palpation: soft External Female Exam: normal external appearance and normal appearance of the urethra Urethra: normal appearance of the urethra Speculum Exam - Vagina: normal ap (more content not included)... Normal [facility] Urine Cultureon 2024 URC Below infection leve l. Mixed Gram Positive Organisms [place] Count 1000-10,000 MIXC Mixed contaminants. Submit a new specimen if indicated. Normal [facility] Comment on above: Performed By: #### M 100.2200 ####[facility] [id number] [place], [address] CBC-Complete Blood Cnt No Di ffon 09-21-2024 Erythrocyte distribution width (RBC) [Ratio] 13.2 % Normal 11.6-14.6 [facility] Comment on above: Performed By: #### L 100.0500, BTSPAT #### [facility] [address] [place], [address] Hematocrit (Bld) [Volume fraction] 45.0 % Normal 37-47 [facility] Comment on above: Performed By: #### L 100.0500, BTSPAT #### [facility] [address] [place], [address] Hemoglobin (Bld) [Mass/Vol] 15.0 g/dL Normal 12.0-15.0 [facility] Comment on above: Performed By: #### L 100.0500, BTSPAT #### [facility] [address] [place], [address] MCH (RBC) [Entitic mass] 29.4 pg Normal 27.0-32.0 [facility] Comment on above: Performed By: #### L 100.0500, BTSPAT #### [facility] [address] [place], [address] MCHC (RBC) [Mass/Vol] 33.3 g/dL Normal 32-36 [facility] Comment on above: Performed By: #### L 100.0500, BTSPAT #### [facility] [address] [place], [address] MCV (RBC) [Entitic vol] 88.1 fL Normal 81-99 [facility] Comment on above: Performed By: #### L 100.0500, BTSPAT #### [facility] [address] [place], [address] Platelet mean volume (Bld) [Entitic vol] 9.4 fL Normal 6.2-12.0 [facility] Comment on above: Performed By: #### L 100.0500, BTSPAT #### [facility] [address] [place], [address] Platelets (Bld) [#/Vol] 283 10*3/uL Normal 150-450 [facility] Comment on above: Performed By: #### L 100.0500, BTSPAT #### [facility] [address] [place], [address] RBC (Bld) [#/Vol] 5.11 10*6/uL Normal 4.2-5.4 [facility] Comment on above: Performed By: #### L 100.0500, BTSPAT #### [facility] [address] [place], [address] RDW SD 42.6 fl Normal 35.1-43.9 [facility] Comment on above: Performed By: #### L 100.0500, BTSPAT #### [facility] [address] [place], [address] WBC (Bld) [#/Vol] 9.2 10*3/uL Normal 4.4-11.0 [facility] Comment on above: Performed By: #### L 100.0500, BTSPAT #### [facility] [address] [place], [address] Discharge Instructionon 03-0 Discharge Instruction [facility] Medical Records Department [address] [place] [address] Instructions for Home/Discharge Instructions 09/21/24 1306 MR#: [id number] Acct: [id number] Name: ARIANNA KERR Rep #: [id number] : 1995 28 From: Julita Hurley DO PCP: Care Physician,No Primary Status:REG SDC Discharge Instructions Diet Discharge Diet: No restrictions DC O2, CPAP, BIPAP needs Home O2 Discharge instructions: No Dressing / Incision Discharge Activity: Return to Normal Activity, May Shower and May Take a Tub Bath (after 1 week) May resume sexual activity in: 1-2 weeks Weight Bearing Status: Weight bearing as tolerated Lifting Restrictions: none Dressing / Incision Call your doctor if you observe: Fever of 101 or Higher, Using more than 1 pad per hour, Shortness of breath and Uncontrolled pain Follow Up Care Please Follow Up With: Julita Hurley DO When: Call [phone] to schedule appointment. Test Results: Test results from this visit will be discussed in further detail at your follow-up appointment, if applicable. Discharge Plan Admission Attending Provider: Julita Hurley Primary Care Provider: Care Physician,No Primary Instructions Print Language: Thai Discharge Orders/Prescriptions Prescriptions: No Action PNV-DHA 27 mg iron-1 mg -300 mg capsule 1 cap PO DAILY Referrals / Follow Up: Care Physician,No Primary [Primary Care Provider] - Disposition Disposition (needs filled in before D/C Order can be placed): Home, Self Care 09/21/24 8427 Julita Hurley DO CC: No Primary Care Physician Signed Normal [facility] Erythrocyte distribution wid th ratioOrdered By: Julita Leal on 09-21-2024 Erythrocyte distribution width (RBC) [Ratio] 13.2 % 11.6-14.6 [facility] Erythrocyte distribution wid th standard deviationOrdered By: Julita Leal on 09-21-2024 Erythrocyte distribution width (RBC) [Entitic vol] 42.6 fL 35.1-43.9 [facility] Erythrocyte distribution width (RBC) [Ratio] 42.6 fl 35.1-43.9 [facility] Hematocrit Auto (Bld) [Volum e fraction]Ordered By: Julita Leal on 09-21-2024 Hematocrit (Bld) [Volume fraction] 45.0 % 37-47 [facility] Hemoglobin measurementOrdere d By: Julita Leal on 09-21-2024 Hemoglobin (Bld) [Mass/Vol] 15.0 g/dL 12.0-15.0 [facility] MCV (mean corpuscular volume ) determinationOrdered By: Julita Leal on 09-21-2024 MCV (RBC) [Entitic vol] 88.1 fL 81-99 [facility] MR/POSTOP.ANEon 09-21-2024 MR/POSTOP.ANE [facility] Medical Records Department [address] [place] [address] Anesthesia Postop Eval I 09/21/241453 MR#: [id number] Acct: [id number] Name: ARIANNA KERR Rep #: [id number] : 1995 From: Nory Polanco CRNA PCP: Care Physician,No Primary Status:[place] [facility] [place] Race: TXD Location: [place] [address] Anesthesia: Postop Eval I Current Vital Signs Temperature: 98.8 F Pulse Rate: 96 Blood Pressure: 116/73 Respiratory Rate: 16 Pulse Ox: 96 Oxygen Delivery Method: Room Air Assessment Airway patent: Yes Spontaneous unlabored respirations: Yes Mental status: Awake and Calm nausea: No Vomiting: No Anesthesia Complication: No Fluid Hydration Crystalloid volume administer (ml): 10 Total IV fluid infused: 10 Progress Note Anesthesia document: Postop Eval 1 completed: Yes 09/21/241453 Date Nory Polanco APPLICATION DEVELOPMENT LIAISON Cosigner Signature: Date CC: Signed Normal [place]/[id number] 09-21-2024 /[facility] Medical Records Department [address] [address] Anesthesia Postop Eval II 09/21/242004 MR#: [id number] Acct: [id number] Name: ARIANNA KERR Rep #: [id number] : 1995 28 From: Juaquin Casper MD PCP: Care Physician,No Primary Status:DEP [facility] Race: UTD [place] [facility] Anesthesia Postop Eval I Sum Postop Eval Completion status Anesthesia document: Postop Eval 1 completed: Yes Anesthesia Postop Eval I Summary Anesthesia Postop Eval I Summary: Anesthesia Postop Eval I: Assessment Summary Airway patent Yes 09/21/24 14:54 APPLICATION DEVELOPMENT LIAISON.BERT Spontaneous unlabored Yes 09/21/24 14:54 APPLICATION DEVELOPMENT LIAISON.BERT respirations Mental status Awake,Calm 09/21/24 14:54 APPLICATION DEVELOPMENT LIAISON.BERT nausea No 09/21/24 14:54 APPLICATION DEVELOPMENT LIAISON.KIMOBDmitry Vomiting No 09/21/24 14:54 APPLICATION DEVELOPMENT LIAISON.KIMOBDmitry Anesthesia Postop Eval I: Fluid Summary Crystalloid volume administer 10 09/21/24 14:54 APPLICATION DEVELOPMENT LIAISON.BERT (ml) Colloids volume administered ( ml) Blood Product volume administered (ml) Total IV fluid infused 10 09/21/24 14:54 APPLICATION DEVELOPMENT LIAISON.BERT Anesthesia Postop Eval I: Summary Notes Anesthesia Complication No 09/21/24 14:54 APPLICATION DEVELOPMENT LIAISON.BERT Anesthesia Complication Comment: Post-operative progress note Anesthesia: Postop Eval II Evaluation Mental status: Awake and Calm Pain Level: 1 nausea: No Vomiting: No Complications Anesthesia Complication: No 09/21/242004 Date Juaquin Casper MD Cosigner Signature: Date CC: Signed Normal [facility] Mean corpuscular hemoglobin (MCH) determinationOrdered By: Julita Leal on 09-21-2024 MCH (RBC) [Entitic mass] 29.4 pg 27.0-32.0 [facility] Mean corpuscular hemoglobin concentration (MCHC) determinationOrdered By: Julita Leal on 09-21-2024 MCHC (RBC) [Mass/Vol] 33.3 g/dL 32-36 [facility] Mean platelet volume determi nationOrdered By: Julita Leal on 09-21-2024 Platelet mean volume (Bld) [Entitic vol] 9.4 fL 6.2-12.0 [facility] Operative Reporton Operative Report [facility] Medical Records Department [address] [place] [address] Operative Report 09/21/24 1427 MR#: [id number] Acct: [id number] Name: ARIANNA KERR Rep #: [id number] : 1995 28 From: Julita Hurley DO PCP: Care Physician,No Primary Status:[facility] Location: [place] [address] Problems Associated Problem List Diagnoses (1) Missed : Multi Select Codes Urinary/Genital Urinary/Genital CPT Codes: 29453 Surg Trtmt missed Ab 1TM Operative Report (Standard) Operative Information Date of Procedure: 09/21/24 Pre-Operative Diagnosis: 8 weeks ,missed Post-Operative Diagnosis: 8 weeks ,missed Surgery/Procedure Performed: suction dilation and curettage airplane cabin attendant: No Type of Anesthesia: MAC and Topical Anesth RN Documented Start/Stop Times: Operation Date: 09/21/24 14:00 Case Time Into Pre-Op 09/21/24 12:47 Out of Pre-Op 09/21/24 14:11 Procedure Start Time: 14:35 Procedure Stop Time: 14:44 Select all DRAINS/GRAFTS/IMPLANTS that apply: None Estimated Blood Loss: 30cc Specimen collected: Yes Description of specimen(s) removed: products of conception Description of surgery: Patient was taken to the operating room and placed under MAC local anesthesia. She was prepped and draped in the normal sterile fashion the dorsal lithotomy position. Bladder was drained of clear urine and anterior lip of the cervix was grasped and the uterus sounded to 13cm. Cervix was progressively dilated to allow passage of a size 8 suction curette. Progressive passes were made removing the retained products of conception without complication. Sharp curettage confirmed complete removal of the retained products. This was confirmed by bedside ultrasound. All instruments were removed from the vagina and excellent hemostasis was noted and the patient was taken to recovery in stable condition. Surgical Findings: 8 week IUP without heart tones. normal vagina and cervix Complications Complications: No Admit VTE Documentation VTE Present on Admission: No VTE Mechan Device Prophylaxis: SCD's VTE Pharm Prophylaxis ordered?: No 09/21/24 3887 Cosigner Signature (if applicable): CC: Dr. Julita Hurley, ; No Primary Care Physician Signed Normal [facility] Platelet countOrdered By: Jorge Leal on 09-21-2024 Platelets (Bld) [#/Vol] 283 10*3/uL 150-450 [facility] RBC Auto (Bld) [#/Vol]Jimy yen By: Julita Leal on 09-21-2024 RBC (Bld) [#/Vol] 5.11 10*6/uL 4.2-5.4 [facility] Surgery Specimen Level Landon 09-21-2024 Surgery Specimen Level IV Patient Age/Sex Location Account Attending Physician ARIANNA KERR 28/ [facility] [id number] Farshad Eldridge Specimen: [id number] Received: 09/22/24 Status: BRIGETTE Saravia Num: [id number] Spec Type: PROD CONC Subm Dr: Dr. Julita Hurley DO HEADER OPERATION: Dilation and curettage, suction PRE-OP DIAGNOSIS: Missed TISSUE SUBMITTED: Products of conception MICROSCOPIC DIAGNOSIS Uterine contents, D C: * Immature chorionic villi, decidua and secretory endometrium consistent with products of conception. MICROSCOPIC DESCRIPTION Slides are reviewed. GROSS DESCRIPTION Received in formalin labeled, Arianna Kerr, and designated products of conception, are multiple pink-daniel, irregularly-shaped, soft tissue fragments, spongy tissue fragments and fibrous tissue, that aggregate to 9.5 x 8.2 x 1.7 cm. There is no tissue seen. Multiple fragments are submitted in three cassettes.JKViolet 2024 CPT:99068 Patient Age/Sex Location Account Attending Physician ARIANNA KERR / [facility] [id number] Farshad Eldridge Signed (signature on file) Dr. Laurie Calderon MD 09/26/24 1747 Normal [facility] Comment on above: Performed By: #### P SUIV ####[facility] [address] [place], [place], [address] Type AND Screen - PAT ONLYon 09-21-2024 Ab SCREEN GEL Negative Normal [facility] Comment on above: Order Comment: Reaso n for Laboratory Test PREOP [id number] N/A N N S 1200 SUCTION D C Performed By: #### L 100.0500, BTSPAT #### [facility] [address] [facility] [place], [place], [address] White blood cell (WBC) count Ordered By: Julita Leal on 09-21-2024 WBC (Bld) [#/Vol] 9.2 10*3/uL 4.4-11.0 [facility] Middle Stitcher Office Visit Reporton 09-20-2024 [facility] Office Visit Report [facility] [address], [address] [place] [address] OFFICE VISIT Date of Service: 09/20/24 MR#: [id number] Acct: [id number] Name: ARIANNA KERR Rep #: [id number] : 1995 Provider: Dr. Julita Vargas DO Age/Sex: 28/F [place] [facility] Status: Signed Intake Vital Signs 08/11/24 09:20 09/07/24 08:18 09/20/24 10:20 Height 5 ft 5 in 5 ft 5 in 5 ft 5 in Weight: 200 lb BMI 33.3 BP 132/86 H Intake Visit Reasons: New OB, LMP 07/22, SARA 04/28/25 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 Required: No Is patient in pain?: No Allergies No Known Allergies Allergy (Verified 09/20/24 10:18) Medications ???Medication ???Instructions ???Recorded ???Confirmed ???Type multivitamin no.47-iron fum 27 cap PO 09/05/24 09/07/24 History mg-folate no.1 1 mg-dha 300 mg capsule (PNV-DHA) guaifenesin 600 mg tablet, 600 mg PO BID PRN congestion #14 0 09/07/24 09/20/24 Rx extended release 12 hr tabs methylprednisolone 4 mg tablets in 4 mg PO PER PKG DIR 6 days #21 t abs 09/15/24 09/20/24 Rx a dose pack (Medrol (Jose Carlos)) ondansetron HCl 4 mg tablet 4 mg PO Q6H PRN nausea and 5 09/20/24 Rx vomiting #60 tabs Last Menstrual Period: 07/22/24 Zika: Zika virus screening: Negative : No PFSH PFSH Medical History delivery delivered Polyhydramnios affecting 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) Hirsutism Tobacco use Surgical History Previous section History of right knee surgery Family History Father Kidney disease, Onset Age: 48 Social History adopted: No household members: spouse and children housing: house number of children: 1 service: No current occupational status: employed current occupation: [employer] current occupational exposures/hazards: No pets and animals: Yes ( doing litter) pets and animals: cat(s) and fish history of recent travel: No sexually active: Yes Smoking Status: Current some day smoker Tobacco: How many years used: 12 Electronic Cigarette Use: with nicotine quit status: considering quitting alcohol intake: never substance use type: former substance user Date of last use: 08/07/24 and marijuana well-balanced diet: daily or most days caffeine: Yes Type: coffee Number of servings: 1 eating out: 1-3 times/week during the past year weight has: decreased > 10 lbs what type of physical activity do you participate in: none suraj/oriental orthodox: None seatbelt use: always do you feel safe at home: Yes additional social history: Kenn-Both work at [employer] History 2 Elective abortions Hx Para 1 Spontaneous abortions Hx # Term Pregnancies Ectopic pregnancies Hx # Pregnancies Multiple births # of living children 1 Past Pregnancies Del. Date Name GA/Weeks Outcome Route Bth Weight Infant Gen Labor Lgth Anesthesia Del Locatn Provider FOB 05/18/23 Simon 39 live - full term 6lbs 13 oz Female epidur al [facility] Delivery Date: 05/18/23 Last Updated by: Faith Solis aod, 9cm sm kw 39 gdm. HPI New OB, LMP 07/22, SARA 04/28/25 Details: ARIANNA KERR is a 28 year old who presents for New OB visit. OB Visit SARA Calculator Estimated Delivery Date Method Current WG Current Estimate 04/28/25 LMP (Certain) 8w 4d Comments: HIV: Urine Culture: Sequential Screen: NIPT Screen: Estimated Due Date: 04/28/25 Initial Weight: Not Recorded Date -???-???-???-???-???-??? -???-???-???-???-???-??? - EGA Weight BP Urine Prot -???-???-???-???-???-??? -???-???-???-???-???-??? - Glucose FHR FuHt Pres Dilation -???-???-???-???-???-??? -???-???-???-???-???-??? - Effaced St Visit Note 09/20/24 -???-???-???-???-???-??? -???-???-???-???-???-??? - 8w 4d 200 lb 132/86 -???-???-???-???-???-??? -???-???-???-???-???-??? - 0 -???-???-???-???-???-??? -???-???-???-???-???-??? - JV- CRL torin uring 6 weeks 5 days without heart tones. missed diagnosed Menstrual History Last Menstrual Period: 07/22/24 Reported LMP: definite Normal amount/duration: Yes Frequency in days: 28 On hormonal BC at conception: No hCG+: 08/23/24 Antepartum Record Genetic Screening: Congenital Heart Defect: Partner (father hole in heart), Neural Tube Defect: Other, Hemoglobinopathy Or Carrier: Other, Cystic Fibrosis: Other, Chromosome Abnormality: Other, Hakan-Sachs: Other, Hemophilia: Other, Intellectual Disability/Autism: Other, Recurrent Loss/Stillbirth: Other, Other Structural Defec (more content not included)... Normal [facility] Urine cultureOrdered By: Chandrika Leal on 09-20-2024 Bacteria identified Cx Nom (U) Positive Abnormal [facility] - Microbiology an d Antimicrobial susceptibilityOrdered By: Juan Cleaning on 09-15-2024 SARS-CoV-2 (COVID-19) RNA LEO+probe Ql (Unsp spec) Not detected [facility] No Panel InformationOrdered By: Juan Cleaning on 09-15-2024 Influenza Types A,B Rapid (Clinic) Not detected [facility] Urgent Care Visit Reporton 0 09-15-2024 Urgent Care Visit Report [facility] [address], [address] [place] [address] OFFICE VISIT Date of Service: 09/15/24 MR#: [id number] Acct: [id number] Name: ARIANNA KERR Rep #: [id number] : 1995 Provider: JUNE Tomas Age/Sex: 28/F [place] [facility] [place] Status: Signed Intake Vital Signs 09/07/24 08:18 09/15/24 11:20 Height 5 ft 5 in Weight: 204 lb BMI 33.9 BP 133/79 H 126/70 H Blood Pressure Location Rt brachial Rt brachial Position Sitting Sitting Respiration 16 Pulse 85 83 Pulse Source Monitor NIBP Temp 98.9 F 98.3 F Temp Source Temporal Oral Pulse Oximetry (%) 99 100 Oxygen Delivery Method room air Intake Visit Reasons: Voice hoarseness Chief Complaint: voice changes, congest, runny nose 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 Required: No Is patient in pain?: No Allergies No Known Allergies Allergy (Verified 09/15/24 11:20) Is last menstrual period known: No Post menopausal: No Patient : Yes Have you fallen in the past year?: No Nurse's Note: voice changes, congest, runny nose for over 2 weeks. pt seen at last week, was advised to take Mucinex, no relief. 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) Hirsutism Tobacco use Surgical History Previous section History of right knee surgery Family History Father Kidney disease, Onset Age: 48 Social History adopted: No household members: spouse and children housing: house number of children: 1 current occupational status: employed current occupation: [employer] current occupational exposures/hazards: No pets and animals: Yes ( doing litter) pets and animals: cat(s) and fish history of recent travel: No sexually active: Yes Smoking Status: Current some day smoker Tobacco: How many years used: 12 Electronic Cigarette Use: with nicotine quit status: considering quitting alcohol intake: never substance use type: former substance user Date of last use: 08/07/24 and marijuana well-balanced diet: daily or most days caffeine: Yes Type: coffee Number of servings: 1 eating out: 1-3 times/week during the past year weight has: decreased > 10 lbs what type of physical activity do you participate in: none suraj/oriental orthodox: None seatbelt use: always do you feel safe at home: Yes additional social history: Kenn-Both work at [employer] HPI HPI Chief Complaint: voice changes, congest, runny nose Details: ARIANNA KERR, is a 28 F who presents to the office today for complaint of hoarseness and runny nose for the past 2 weeks. Patient states that she feels like she possibly had COVID 2 weeks ago as she had a fever and cough however most of the symptoms have resolved other than hoarseness. She denies nausea, vomiting or diarrhea. No hemoptysis, shortness of breath or difficulty breathing. No loss of taste or smell. No other associated symptoms or alleviating/aggravating factors. ROS Const Constitutional: No other (6 system ROS completed with pertinent findings in the HPI otherwise normal.) Exam Const General: cooperative and well developed HENMT Head: normal to inspection and atraumatic Ears: hearing grossly normal bilaterally Nose: nasal discharge clear Face and sinus: normal facial exam Mouth: oral mucosae normal Throat: abnormal tonsil bilaterally hypertrophy 1+ Resp Effort Inspection: normal respiratory effort and no audible wheezes Auscultation: Bilateral: Clear to Auscultation Cardio Rate: regular rate Rhythm: regular rhythm Neuro General: patient alert Psych Appearance: grossly normal Mental Status: mental status grossly normal Results POC GIDEON Covid FluAB PCR POC Gideon Covid PCR Not Detected Last Edit by Amanda Cohen on 09/15/24 11:38 POC GIDEON FLU NOT DETECTED FLU A B Last Edit by Amanda Cohen on 09/15/24 11:38 Coding Level of Care Code Off vis,est,level 3 Diagnoses Acute laryngitis J04.0 Assessment and Plan Assessment and Plan (1) Acute laryngitis: Status: Acute Plan: Medrol Dosepak as prescribed today. Encouraged to get plenty of rest, drink lots of clear liquids, and use Tylenol (unless contraindicated) for fever and comfort. Patient also educated on other symptomatic management techniques. To be seen in 7-10 days if no improvement; sooner if worsening of symptoms. Patient advised of potential red flags and when appropriate to report to the ED. Patient verbal (more content not included)... Normal [facility] Office Visit Reporton 2024 Office Visit Report [facility] [address] [place] [address] OFFICE VISIT Date of Service: 09/07/24 MR#: [id number] Acct: [id number] Patient: ARIANNA KERR Rep #: [id number] : 1995 Provider: JUNE Mendiola Age/Sex: 28/F Location: [facility] Status: Signed Intake Vital Signs 08/11/24 09:20 09/07/24 08:18 Height 1.65 m 1.65 m Weight: 92.533 kg 92.533 kg BMI 33.9 33.9 BP 124/84 H 133/79 H Blood Pressure Location Rt brachial Position Sitting Pulse 85 Pulse Source Monitor Temp 98.9 F Temp Source Temporal Pulse Oximetry (%) 99 Intake Visit Reasons: Sore throat Chief Complaint: raspy voice Allergies No Known Allergies Allergy (Verified 09/07/24 08:19) Medications ???Medication ???Instructions ???Recorded ???Confirmed ???Type multivitamin no.47-iron fum 27 cap PO 09/05/24 09/07/24 History mg-folate no.1 1 mg-dha 300 mg capsule (PNV-DHA) guaifenesin 600 mg tablet, 600 mg PO BID PRN congestion #14 0 09/07/24 09/07/24 Rx extended release 12 hr tabs PFSH Medical History delivery delivered Polyhydramnios affecting 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) Hirsutism Tobacco use Surgical History Previous section History of right knee surgery Family History Father Kidney disease, Onset Age: 48 Social History adopted: No household members: spouse and children housing: house number of children: 1 current occupational status: employed current occupation: [employer] current occupational exposures/hazards: No pets and animals: Yes ( doing litter) pets and animals: cat(s) and fish history of recent travel: No sexually active: Yes Smoking Status: Current some day smoker Tobacco: How many years used: 12 Electronic Cigarette Use: with nicotine quit status: considering quitting alcohol intake: never substance use type: former substance user Date of last use: 08/07/24 and marijuana well-balanced diet: daily or most days caffeine: Yes Type: coffee Number of servings: 1 eating out: 1-3 times/week during the past year weight has: decreased > 10 lbs what type of physical activity do you participate in: none suraj/oriental orthodox: None seatbelt use: always do you feel safe at home: Yes additional social history: Kenn-Pb work at [employer] HPI Chief Complaint: raspy voice Details: ARIANNA KERR, is a 28 F who is 6 weeks who presents to the office today for raspy voice. Pt has had this 2-3 days. She was sick with the flu last week. She had cough, congestion, fever, chills, sore throat. She overall feels much better and that she is over the flu. She however is left with a raspy voice. No further sore throat. She has some mild congestion still. ROS Const Constitutional: No body ache, chills, fatigue or fever(s) ENT ENT: Positive for nasal congestion and hoarseness; No ear or mastoid pain, sinus pain or sore throat Resp Respiratory: No cough, shortness of breath or wheezing Endo Endocrine: No fatigue Aller/Imm Allergy/Immunologic: No wheezing Exam Const General: cooperative, healthy appearing, comfortable, no acute distress, well developed and well groomed Nutritional Appearance: average body habitus and well nourished Orientation: alert, awake and oriented x3 HENMT Ears: hearing grossly normal bilaterally, external ears normal and TM's normal bilaterally Nose: external nose normal, nares normal and no nasal polyps Face and sinus: sinus tenderness (mildly tender) frontal Throat: tonsils normal, uvula midline, posterior oropharynx abnormal erythema and postnasal drainage Resp Effort Inspection: normal respiratory effort, able to speak in complete sentences, symmetric chest movement and no cough Auscultation: Bilateral: Clear to Auscultation Cardio Rate: regular rate Rhythm: regular rhythm Heart Sounds: no murmurs Coding Level of Care Code Off vis,est,level 2 Diagnoses Sore throat J02.9 Laryngitis J04.0 Assessment and Plan Assessment and Plan (1) Sore throat: (2) Laryngitis: Status: Acute Plan: likely 2/2 recent viral syndrom and post nasal drainage from associate rhinosinusitis. at this time recommended supportive care, avoidance of irritants, and decongestants - guaifenesin prn pt 6 weeks - planning to see Dr. Dai next month. Medications: New guaifenesin ER 600 mg PO BID PRN 14 tabs 0RF congestion 09/07/24 0844 Date Demar Cam Signature: Date (more content not included)... Normal [facility] HCG ( test) QlOrder ed By: Julita Leal on 08-25-2024 Human Chorionic Gonadotropin, Quant 6744 mIU/mL High <4 [facility] Comment on above: hCG levels with Gest ational AgeGestational Age hCG mIU/mL (IU/L)0.2 - 1 week 5 - 501-2 weeks 50 - 5002-3 weeks 100 - 01468-5 weeks 500 - 677867-8 weeks 1000 - 709724-4 weeks 03556 - 100,0006-8 weeks 44264 - 200,0002-3 months 89614 - 100,000 Serum human chorionic gonado tropin detection for pregnancyOrdered By: Julita Leal on 08-25-2024 HCG ( test) Ql 6744 mIU/mL High <4 [facility] Comment on above: hCG levels with Gest ational AgeGestational Age hCG mIU/mL (IU/L)0.2 - 1 week 5 - 501-2 weeks 50 - 5002-3 weeks 100 - 17892-7 weeks 500 - 236344-6 weeks 1000 - 108568-9 weeks 99949 - 100,0006-8 weeks 56650 - 200,0002-3 months 97219 - 100,000 hCG Titer Quant., Serumon HCG QUANT. 6744 mIU/mL High 1-3 [facility] Comment on above: Result Comment: hCG levels with Gestational Age Gestational Age hCG mIU/mL (IU/L) 0.2 - 1 week 5 - 50 1-2 weeks 50 - 500 2-3 weeks 100 - 5000 3-4 weeks 500 - 18031 4-5 weeks 1000 - 19833 5-6 weeks 29303 - 100,000 6-8 weeks 97143 - 200,000 2-3 months 44386 - 100,000 Performed By: #### L 700.8000 ####[facility] [address] [place], [address] [facility] Office Visit Reporton 08-11-2024 [facility]it[facility] Office Visit Report [facility] [place] [address], [address] [place] [address] OFFICE VISIT Date of Service: 08/11/24 MR#: [id number] Acct: [id number] Name: USHAARIANNA Rep #: [id number] : 1995 Provider: ADDI Bradford ams Age/Sex: 28/F [place] [facility] [place] Status: Signed Intake Vital Signs 06/28/23 09:54 02/23/24 15:13 08/11/24 09:20 Height 5 ft 5 in 5 ft 5 in 5 ft 5 in Weight: 204 lb BMI 33.9 BP 124/84 H 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) 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 Required: No Is patient in pain?: No Allergies No Known Allergies Allergy (Verified 08/11/24 09:26) Medications ???Medication ???Instructions ???Recorded ???Confirmed ???Type NK 08/11/24 08/11/24 History Is last menstrual period known: Yes Last Menstrual Period: 07/22/24 Post menopausal: No Patient : No : No Control Method: none PFSH Medical History delivery delivered Polyhydramnios affecting 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) Hirsutism Tobacco use Surgical History History of right knee surgery Social History adopted: No household members: spouse housing: house number of children: 1 current occupational status: employed current occupation: [employer] pets and animals: Yes ( doing litter) pets and animals: cat(s) and fish history of recent travel: No sexually active: Yes Smoking Status: Current some day smoker alcohol intake: never substance use type: marijuana caffeine: Yes seatbelt use: always do you feel safe at home: Yes additional social history: Kenn-Both work at [employer] History 1 Elective abortions Hx Para 1 Spontaneous abortions Hx # Term Pregnancies Ectopic pregnancies Hx # Pregnancies Multiple births # of living children 1 Past Pregnancies Del. Date Name GA/Weeks Outcome Route Bth Weight Gen Labor Lgth Anesthesia Del Locatn Provider FOB 05/18/23 Simon 39 live - full term 6lbs 13 oz Female epidur al [facility] Delivery Date: 05/18/23 Last Updated by: Faith Solis aod, 9cm sm kw 39 gdm. HPI Encounter for routine gynecological examination Details: ARIANNA KERR is a 28 year old who presents for annual exam. would like to TTC within the next year. Last PAP: 2022; normal. hpv neg History of abnormal PAP: no Last mammogram: age 38 History of abnormal mammogram: n/a Colon cancer screening: age 43 Other preventative health care screenings: no pcp Female Reproductive History Last Menstrual Period: 07/22/24 Cycle Length: 21-35 Bleeding Duration: 7 Questions: metorrhagia: No, sexually active: Yes, dyspareunia: No and PCB: No Menopausal Symptoms: No hot flashes, No night sweats, No weight change and No mood changes ROS Const Constitutional: Reports system reviewed and no additional complaints, except as documented; Denies night sweats Cardio Card: Reports system reviewed and no additional complaints, except as documented Resp Resp: Reports system reviewed and no additional complaints, except as documented GI GI: Reports system reviewed and no additional complaints, except as documented : Reports system reviewed and no additional complaints, except as documented; Denies difficulty voiding, dysuria, hot flashes or urinary frequency Skin Skin/Breast: Reports system reviewed and no additional complaints, except as documented Neuro Neuro: Reports system reviewed and no additional complaints, except as documented Psych Psych: Reports system reviewed and no additional complaints, except as documented; Denies anhedonia, anxiety or depression Exam Const General: cooperative, healthy appearing, comfortable and no acute distress Orientation: alert, awake and oriented x3 Neck Neck: normal visual inspection and full ROM Thyroid: thyroid normal Chest Breast inspection: normal inspection of the breasts and normal inspection of the axillae Breast palpation: normal palpation of the breasts and normal palpation of the axillae Resp Effort Inspection: normal respiratory effort, able to speak in complete sentences and symmetric chest movement GI Inspection: normal to inspection Palpation: soft Rectal Exam: visual inspection normal External Female Exam: normal external appearance and normal appearance of the urethra Urethra: normal appearance of the urethra Speculum Exam - Vagina: normal appearance of the vagina and normal vaginal discharge Speculum Exam - Cervix: normal appearance of the cervix and nontender Bimanual Exam- Vagina Uterus: normal bimanual exam, nor (more content not included)... Normal [facility] CT Abd/Pelvis W/WO Contrasto n 04-07-2024 CT Abd/Pelvis W/WO Contrast [facility] Imaging Services [address] [place] [address] CT Abd/Pelvis W/WO Contrast MR#: [id number] Acct: [id number] Name: ARIANNA KERR Rep #: [id number] : 1995 F 28 From: Joshua powers MD PCP: Care Physician,No Primary Status: REG CLI Study: CT Abd/Pelvis W/WO Contrast Date of Exam: 03/20 Exam# [id number] Ordering Dr: Ruby Romero MD [id number] STUDY: CT ABDOMEN AND PELVIS WITH AND WITHOUT CONTRAST REASON FOR EXAM: Female, 28 years old. Gross hematuria RADIATION DOSAGE (If Supplied By Facility): CTDIvol = ( 18.49 ) mGy, DLP = ( 3252.71 ) mGycm TECHNIQUE: Transaxial images were obtained from the dome of the diaphragm to the symphysis pubis without oral contrast. IV 75mL Isovue-370 was administered. Sagittal and coronal images were reconstructed. Individualized dose optimization techniques were used for this CT. COMPARISON: None. FINDINGS: The visualized lung bases are unremarkable. The visualized portions of the heart are within normal limits. Normal shape of the liver which is enlarged. 2 cm hemangioma in the posterior segment of the right hepatic lobe. Normal gallbladder and extrahepatic biliary system. Normal spleen. Normal pancreas. Normal bilateral adrenal glands. Normal right kidney. Normal left kidney. Evaluation of the GI tract is limited by absence of oral contrast. Cannot exclude stomach wall thickening. No dilated loops of bowel or evidence for obstruction. Cannot exclude segmental thickening of the sepulveda of the small or large bowel. Cannot exclude enteritis or colitis. Moderate diffuse fecal retention. Appendix within normal limits. Normal abdominal aorta. Normal inferior vena cava. Normal retroperitoneum. Normal urinary bladder. Normal abdominal wall. Normal osseous structures. CT/CT Abd/Pelvis W/WO Contrast IMPRESSION: No acute abnormality. Hepatomegaly and 2 cm hemangioma. Normal kidneys, collecting systems, ureters and bladder. Electronically Signed: Joshua Green MD at 16:54 EDT , CC: Dr. Ruby Romero MD; No Primary Care Physician Race Relations Adviser: Signed Normal [facility] Basophil percentageOrdered B y: Gilma Bliss on 05-19-2023 WBC (Bld) [#/Vol] 11.7 10*3/uL 4.4-11.0 [facility] Blood erythrocytes count (nu mber/volume)Ordered By: Gilma Bliss on 05-19-2023 RBC (Bld) [#/Vol] 3.58 10*6/uL 4.2-5.4 [facility] Blood hemoglobin measurement (mass/volume)Ordered By: Gilma Bliss on 05-19-2023 Hemoglobin (Bld) [Mass/Vol] 10.6 g/dL 12.0-15.0 [facility] Blood platelet mean volumeOr dered By: Gilma Bliss on 05-19-2023 Platelet mean volume (Bld) [Entitic vol] 10.4 fL 6.2-12.0 [facility] Determination of erythrocyte mean corpuscular volume (MCV)Ordered By: Gilma Bliss on 05-19-2023 MCV (RBC) [Entitic vol] 91.1 fL 81-99 [facility] Glucose Glucometer (BldC) [M ass/Vol]Ordered By: Gilma Bliss on 05-19-2023 Glucose [Mass/Vol] 73 mg/dL 74-106 [facility] Comment on above: MANAGEMENT OF PATIEN T CARE PER NURSING PROTOCOL Hematocrit Auto (Bld) [Volum e fraction]Ordered By: Gilma Bliss on 05-19-2023 Hematocrit (Bld) [Volume fraction] 32.6 % 37-47 [facility] Laboratory - Hematology and Cell countsOrdered By: Gilma Bliss on 05-19-2023 Erythrocyte distribution width (RBC) [Entitic vol] 46.9 fL 35.1-43.9 [facility] Erythrocyte distribution width (RBC) [Ratio] 13.9 % 11.6-14.6 [facility] MCH (RBC) [Entitic mass] 29.6 pg 27.0-32.0 [facility] MCHC Auto (RBC) [Mass/Vol]Or dered By: Gilma Bliss on 05-19-2023 MCHC (RBC) [Mass/Vol] 32.5 g/dL 32-36 [facility] Platelets bldOrdered By: Grupo Bliss on 05-19-2023 Platelets (Bld) [#/Vol] 191 10*3/uL 150-450 [facility] Absolute lymphocyte countOrd ered By: Romero Trinidad on 05-17-2023 Lymphocytes Auto (Unsp spec) [#/Vol] 2.17 10*3/uL 0.83-4.51 [facility] Basophil percentageOrdered B y: Romero Trinidad on 05-17-2023 Basophils/100 WBC (Bld) 0.3 % 0-1 [facility] Eosinophils/100 WBC (Bld) 1.0 % 0-5 [facility] Neutrophils (Bld) [#/Vol] 9.1 10*3/uL 2.0-7.7 [facility] Neutrophils/100 WBC (Bld) 74.7 % 47-70 [facility] Blood lymphocytes/100 leukoc ytesOrdered By: Romero Trinidad on 05-17-2023 Lymphocytes/100 WBC (Bld) 17.9 % 19-41 [facility] Blood monocytes/100 leukocyt esOrdered By: Romero Trinidad on 05-17-2023 Monocytes/100 WBC (Bld) 5.5 % 0-10 [facility] - Drug toxicology Ordered By: Romero Trinidad on 05-17-2023 Amphetamines Ql (U) Negative <1000 ng/mL [facility] Benzodiazepines Ql (U) Negative < 200 ng/mL [facility] Cannabinoids Screen Ql (U) Negative < 50 ng/mL [facility] Cocaine Ql (U) Negative < 300 ng/mL [facility] Opiates Ql (U) Negative < 300 ng/mL [facility] Laboratory - Hematology and Cell countsOrdered By: Romero Trinidad on 05-17-2023 Immature granulocytes/100 WBC (Bld) 0.600 % 0.0-0.9 [facility] Comment on above: IG% - Immature Granu locytes (promyelocytes, myelocytes and metamyelocytes) > 1% indicates that a LEFT SHIFT is Present. Nucleated RBC/100 WBC (Bld) [Ratio] 0 % 0-5 [facility] No Panel InformationOrdered By: Romero Trinidad on 05-17-2023 MDMA (Ecstasy) Screen Negative < 500 ng/mL [facility] Urine Barbiturates Screen Negative < 200 ng/mL [facility] Urine Drug Screen Comment [facility] Comment on above: CONFIRMATORY TESTING FOR ALL POSITIVE URINE DRUG SCREENRESULTS WILL ONLY BE SENT OUT UPON PHYSICIAN ORDER. VISTA Urine Drug Screen methods provide only preliminaryanalytical test results. A more specific alternate chemicalmethod must be used in order to obtain a confirmedanalytical result. Gas chromatography/mass spectrometery(GC/MS) is the preferred confirmatory method. Clinicalconsideration and professional judgement should be appliedto any drug of abuse test result, particularly whenpreliminary positive results are used. URINE TCA TESTING MUST BE ORDERED SEPARATELY. USE TESTMNEMONIC: [facility] Urine Methadone Screen Negative < 300 ng/mL [facility] Serum Treponema species anti body detectionOrdered By: Romero Trinidad on 05-17-2023 Treponema sp Ab Ql (S) Non-Reactive [facility] Urine phencyclidine (PCP) de tectionOrdered By: Romero Trinidad on 05-17-2023 Phencyclidine Ql (U) Negative < 25 ng/mL [facility] Laboratory - Chemistry and C hemistry - challengeon 05-14-2023 Glucose Ql (U) Negative [facility] Laboratory - Urinalysison Protein Ql (U) Negative [facility] Laboratory - Chemistry and C hemistry - challengeon 05-11-2023 Glucose Ql (U) Negative [facility] Laboratory - Urinalysison Protein Ql (U) Negative [facility] Laboratory - Chemistry and C hemistry - challengeon 05-07-2023 Glucose Ql (U) Negative [facility] Laboratory - Urinalysison Protein Ql (U) Negative [facility] Laboratory - Chemistry and C hemistry - challengeon 05-04-2023 Glucose Ql (U) Negative [facility] Laboratory - Urinalysison Protein Ql (U) Trace [facility] No Panel InformationOrdered By: Arianna Copeland on 05-01-2023 Group B Streptococcus Culture Streptococcus agalactiae (B) [facility] Culture, urineOrdered By: Jose Copeland on 04-30-2023 Bacteria identified Cx Nom (U) Positive [facility] Bacteria identified Cx Nom (U) Positive [facility] Laboratory - Chemistry and C hemistry - challengeon 04-30-2023 Glucose Ql (U) Negative [facility] Laboratory - Urinalysison Protein Ql (U) Negative [facility] No Panel InformationOrdered By: Arianna Copeland on 04-30-2023 Group B Streptococcus Culture Streptococcus agalactiae (B) [facility] Specimen Comment (Misc) Not Reportable [facility] Thin prep Papanicolaou smear with manual screeningOrdered By: Arianna Copeland on 04-30-2023 Thin prep Papanicolaou smear with manual screening Negative Negative [facility] Laboratory - Chemistry and C hemistry - challengeon 04-27-2023 Glucose Ql (U) Negative [facility] Laboratory - Urinalysison Protein Ql (U) Negative [facility] Laboratory - Chemistry and C hemistry - challengeon 04-23-2023 Glucose Ql (U) Negative [facility] Laboratory - Urinalysison Protein Ql (U) Negative [facility] Laboratory - Chemistry and C hemistry - challengeon 04-19-2023 Glucose Ql (U) Negative [facility] Laboratory - Urinalysison Protein Ql (U) Negative [facility] Laboratory - Chemistry and C hemistry - challengeon 04-16-2023 Glucose Ql (U) Negative [facility] Laboratory - Urinalysison Protein Ql (U) Negative [facility] Laboratory - Chemistry and C hemistry - challengeon 04-09-2023 Glucose Ql (U) Negative [facility] Laboratory - Urinalysison Protein Ql (U) Negative [facility] Laboratory - Chemistry and C hemistry - challengeon 04-06-2023 Glucose Ql (U) Negative [facility] Laboratory - Urinalysison Protein Ql (U) Trace [facility] Laboratory - Chemistry and C hemistry - challengeon 03-29-2023 Glucose Ql (U) Negative [facility] Laboratory - Urinalysison Protein Ql (U) Trace [facility] Laboratory - Chemistry and C hemistry - challengeon 03-26-2023 Glucose Ql (U) Negative [facility] Laboratory - Urinalysison Protein Ql (U) Negative [facility] Laboratory - Chemistry and C hemistry - challengeon 03-19-2023 Glucose Ql (U) Negative [facility] Laboratory - Urinalysison Protein Ql (U) Negative [facility] Absolute lymphocyte countOrd ered By: Romerojoaquin Trinidad on 03-05-2023 Lymphocytes Auto (Unsp spec) [#/Vol] 1.66 10*3/uL 0.83-4.51 [facility] Basophil percentageOrdered B y: Romerojoaquin Trinidad on 03-05-2023 Basophils/100 WBC (Bld) 0.6 % 0-1 [facility] Eosinophils/100 WBC (Bld) 1.2 % 0-5 [facility] Neutrophils (Bld) [#/Vol] 11.3 10*3/uL 2.0-7.7 [facility] Neutrophils/100 WBC (Bld) 78.5 % 47-70 [facility] WBC (Bld) [#/Vol] 14.4 10*3/uL 4.4-11.0 [facility] Blood erythrocytes count (nu mber/volume)Ordered By: Romero Trinidad on 03-05-2023 RBC (Bld) [#/Vol] 4.08 10*6/uL 4.2-5.4 [facility] Blood hemoglobin measurement (mass/volume)Ordered By: Romero Trinidad on 03-05-2023 Hemoglobin (Bld) [Mass/Vol] 12.4 g/dL 12.0-15.0 [facility] Blood lymphocytes/100 leukoc ytesOrdered By: oRmero Trinidad on 03-05-2023 Lymphocytes/100 WBC (Bld) 11.5 % 19-41 [facility] Blood monocytes/100 leukocyt esOrdered By: Romero Trinidad on 03-05-2023 Monocytes/100 WBC (Bld) 4.2 % 0-10 [facility] Blood platelet mean volumeOr dered By: Romero Trinidad on 03-05-2023 Platelet mean volume (Bld) [Entitic vol] 10.0 fL 6.2-12.0 [facility] Determination of erythrocyte mean corpuscular volume (MCV)Ordered By: Romero Trinidad on 03-05-2023 MCV (RBC) [Entitic vol] 90.9 fL 81-99 [facility] Gestational diabetes screen 1-hour screen with 50g oral glucose loadOrdered By: Romero Trinidad on 03-05-2023 Glucose 1 Hr post 50 g glucose PO [Mass/Vol] 182 mg/dL 70-140 [facility] HIV 1 and HIV-2 antibody ass ay with HIV-1 p24 antigen detectionOrdered By: Romero Trinidad on 03-05-2023 HIV 1+2 Ab+HIV1 p24 Ag IA Ql Non-Reactive Nonreactive [facility] Hematocrit Auto (Bld) [Volum e fraction]Ordered By: Romero Trinidad on 03-05-2023 Hematocrit (Bld) [Volume fraction] 37.1 % 37-47 [facility] Laboratory - Chemistry and C hemistry - challengeon 03-05-2023 Glucose Ql (U) Negative [facility] Laboratory - Hematology and Cell countsOrdered By: Romero Trinidad on 03-05-2023 Erythrocyte distribution width (RBC) [Entitic vol] 44.4 fL 35.1-43.9 [facility] Erythrocyte distribution width (RBC) [Ratio] 13.4 % 11.6-14.6 [facility] Immature granulocytes/100 WBC (Bld) 4.000 % 0.0-0.9 [facility] Comment on above: IG% - Immature Granu locytes (promyelocytes, myelocytes and metamyelocytes) > 1% indicates that a LEFT SHIFT is Present. MCH (RBC) [Entitic mass] 30.4 pg 27.0-32.0 [facility] Nucleated RBC/100 WBC (Bld) [Ratio] 0 % 0-5 [facility] Laboratory - Urinalysison Protein Ql (U) Negative [facility] MCHC Auto (RBC) [Mass/Vol]Or dered By: Romero Trinidad on 03-05-2023 MCHC (RBC) [Mass/Vol] 33.4 g/dL 32-36 [facility] Platelets bldOrdered By: Tesha Trinidad on 03-05-2023 Platelets (Bld) [#/Vol] 235 10*3/uL 150-450 [facility] Serum Treponema species anti body detectionOrdered By: Romero Trinidad on 03-05-2023 Treponema sp Ab Ql (S) Non-Reactive [facility] Laboratory - Chemistry and C hemistry - challengeon 02-04-2023 Glucose Ql (U) Negative [facility] Laboratory - Urinalysison Protein Ql (U) 1+ [facility] Laboratory - Chemistry and C hemistry - challengeon 01-04-2023 Glucose Ql (U) Negative [facility] Laboratory - Urinalysison Protein Ql (U) Negative [facility] Laboratory - Chemistry and C hemistry - challengeon 11-26-2022 Glucose Ql (U) Negative [facility] Laboratory - Urinalysison Protein Ql (U) Negative [facility] No Panel Informationon 12-31 Dehydroepiandrosterone Sulfate 296.0 ug/dL 84.8-378.0 [facility] Work Phone: Thyroid Stimulating Hormone (TSH) 3.72 uIU/mL 0.358-3.74 [facility] Work Phone: Serum or plasma prolactin me asurement (mass/volume)on 12-31-2021 Prolactin [Mass/Vol] 9.4 ng/mL [facility] Work Phone: Comment on above: NORMAL REFERENCE RAN GES FEMALE NON- 2.2 - 30.3 ng/mL 8.1 - 347.6 ng/mL POST-MENOPAUSAL 0.7 - 31.5 ng/mL MALE 2.5 - 17.4 ng/mL Serum or plasma testosterone free measurement (mass/volume)on 12-31-2021 Testosterone Free [Mass/Vol] 1.2 pg/mL 0.0-4.2 [facility] Work Phone: Comment on above: Performed at: - [facility] [address] [id number] Director: Ketan Brand PhD, Phone: [phone] at: - [facility] [id number] Director: Hany Crystal MD, Phone: [phone] Vital Signs Date Time Vital Sign Value Performing Clinician Live malloy 12-14-2024 11:47-0400 Body height 165.1 cm No Primary Care Physician [facility] 12-14-2024 11:47-0400 Body mass index (BMI) [Ratio] 33.3 kg/m2 No Primary Care Physician [facility] 12-14-2024 11:47-0400 Body weight 90.94 kg No Primary Care Physician [facility] 12-14-2024 11:47-0400 Diastolic blood pressure 87 mm[Hg] No Primary Care Physician [facility] 12-14-2024 11:47-0400 Systolic blood pressure 130 mm[Hg] No Primary Care Physician [facility] 12-07-2024 15:26-0400 Body height 165.1 cm No Primary Care Physician [facility] 12-07-2024 15:26-0400 Body mass index (BMI) [Ratio] 33.1 kg/m2 No Primary Care Physician [facility] 12-07-2024 15:26-0400 Body weight 90.37 kg No Primary Care Physician [facility] 12-07-2024 15:26-0400 Diastolic blood pressure 92 mm[Hg] No Primary Care Physician [facility] 12-07-2024 15:26-0400 Heart rate 103 /min No Primary Care Physician [facility] 12-07-2024 15:26-0400 SaO2% (BldA) [Mass fraction] 98 % No Primary Care Physician [facility] 12-07-2024 15:26-0400 Systolic blood pressure 138 mm[Hg] No Primary Care Physician [facility] 10-06-2024 15:30-0400 Body mass index (BMI) [Ratio] 34.6 kg/m2 No Primary Care Physician [facility] 10-06-2024 15:30-0400 Body weight 94.34 kg No Primary Care Physician [facility] 10-06-2024 15:30-0400 Diastolic blood pressure 84 mm[Hg] No Primary Care Physician [facility] 10-06-2024 15:30-0400 Systolic blood pressure 119 mm[Hg] No Primary Care Physician [facility] 09-21-2024 16:19-0500 Body temperature 98.1 [degF] No Primary Care Physician [facility] 09-21-2024 16:19-0500 Diastolic blood pressure 76 mm[Hg] No Primary Care Physician [facility] 09-21-2024 16:19-0500 Heart rate 81 /min No Primary Care Physician [facility] 09-21-2024 16:19-0500 Respiratory rate 16 /min No Primary Care Physician [facility] 09-21-2024 16:19-0500 SaO2% (BldA) [Mass fraction] 100 % No Primary Care Physician [facility] 09-21-2024 16:19-0500 Systolic blood pressure 109 mm[Hg] No Primary Care Physician [facility] 09-21-2024 13:22-0500 Body height 165.1 cm No Primary Care Physician [facility] 09-21-2024 13:22-0500 Body mass index (BMI) [Ratio] 33.3 kg/m2 No Primary Care Physician [facility] 09-21-2024 13:22-0500 Body weight 91 kg No Primary Care Physician [facility] 09-20-2024 10:20-0500 Body mass index (BMI) [Ratio] 33.3 kg/m2 No Primary Care Physician [facility] 09-20-2024 10:20-0500 Body weight 90.71 kg No Primary Care Physician [facility] 09-20-2024 10:20-0500 Diastolic blood pressure 86 mm[Hg] No Primary Care Physician [facility] 09-20-2024 10:20-0500 Systolic blood pressure 132 mm[Hg] No Primary Care Physician [facility] 09-15-2024 11:20-0500 Body temperature 98.3 [degF] No Primary Care Physician [facility] 09-15-2024 11:20-0500 Diastolic blood pressure 70 mm[Hg] No Primary Care Physician [facility] 09-15-2024 11:20-0500 Heart rate 83 /min No Primary Care Physician [facility] 09-15-2024 11:20-0500 Respiratory rate 16 /min No Primary Care Physician [facility] 09-15-2024 11:20-0500 SaO2% (BldA) [Mass fraction] 100 % No Primary Care Physician [facility] 09-15-2024 11:20-0500 Systolic blood pressure 126 mm[Hg] No Primary Care Physician [facility] 09-07-2024 08:18-0500 Body mass index (BMI) [Ratio] 33.9 kg/m2 No Primary Care Physician [facility] 09-07-2024 08:18-0500 Body temperature 98.9 [degF] No Primary Care Physician [facility] 09-07-2024 08:18-0500 Body weight 92.53 kg No Primary Care Physician [facility] 09-07-2024 08:18-0500 Diastolic blood pressure 79 mm[Hg] No Primary Care Physician [facility] 09-07-2024 08:18-0500 Heart rate 85 /min No Primary Care Physician [facility] 09-07-2024 08:18-0500 SaO2% (BldA) [Mass fraction] 99 % No Primary Care Physician [facility] 09-07-2024 08:18-0500 Systolic blood pressure 133 mm[Hg] No Primary Care Physician [facility] 08-11-2024 09:20-0500 Body mass index (BMI) [Ratio] 33.9 kg/m2 No Primary Care Physician [facility] 08-11-2024 09:20-0500 Body weight 92.53 kg No Primary Care Physician [facility] 08-11-2024 09:20-0500 Diastolic blood pressure 84 mm[Hg] No Primary Care Physician [facility] 08-11-2024 09:20-0500 Systolic blood pressure 124 mm[Hg] No Primary Care Physician [facility] 06-28-2023 09:54-0500 Body height 165.1 cm No Primary Care Physician [facility] 06-28-2023 09:53-0500 Body mass index (BMI) [Ratio] 33.6 kg/m2 No Primary Care Physician [facility] 06-28-2023 09:53-0500 Body weight 91.62 kg No Primary Care Physician [facility] 06-28-2023 09:53-0500 Diastolic blood pressure 82 mm[Hg] No Primary Care Physician [facility] 06-28-2023 09:53-0500 Systolic blood pressure 130 mm[Hg] No Primary Care Physician [facility] 06-02-2023 14:12-0500 Body mass index (BMI) [Ratio] 32.7 kg/m2 No Primary Care Physician [facility] 06-02-2023 14:12-0500 Body weight 89.13 kg No Primary Care Physician [facility] 06-02-2023 14:12-0500 Diastolic blood pressure 78 mm[Hg] No Primary Care Physician [facility] 06-02-2023 14:12-0500 Systolic blood pressure 118 mm[Hg] No Primary Care Physician [facility] 05-20-2023 08:00-0400 Body temperature 99.2 [degF] No Primary Care Physician [facility] 05-20-2023 08:00-0400 Diastolic blood pressure 71 mm[Hg] No Primary Care Physician [facility] 05-20-2023 08:00-0400 Heart rate 71 /min No Primary Care Physician [facility] 05-20-2023 08:00-0400 Respiratory rate 16 /min No Primary Care Physician [facility] 05-20-2023 08:00-0400 SaO2% (BldA) [Mass fraction] 97 % No Primary Care Physician [facility] 05-20-2023 08:00-0400 Systolic blood pressure 121 mm[Hg] No Primary Care Physician [facility] 05-17-2023 19:54-0400 Body height 165.1 cm No Primary Care Physician [facility] 05-17-2023 19:54-0400 Body mass index (BMI) [Ratio] 37.7 kg/m2 No Primary Care Physician [facility] 05-17-2023 19:54-0400 Body weight 102.9 kg No Primary Care Physician [facility] 05-14-2023 08:13-0400 Body mass index (BMI) [Ratio] 36.1 kg/m2 No Primary Care Physician [facility] 05-14-2023 08:13-0400 Body weight 101.6 kg No Primary Care Physician [facility] 05-14-2023 08:13-0400 Diastolic blood pressure 85 mm[Hg] No Primary Care Physician [facility] 05-14-2023 08:13-0400 Systolic blood pressure 126 mm[Hg] No Primary Care Physician [facility] 05-11-2023 10:03-0400 Body mass index (BMI) [Ratio] 35.9 kg/m2 No Primary Care Physician [facility] 05-11-2023 10:03-0400 Body weight 100.92 kg No Primary Care Physician [facility] 05-11-2023 10:03-0400 Diastolic blood pressure 87 mm[Hg] No Primary Care Physician [facility] 05-11-2023 10:03-0400 Systolic blood pressure 132 mm[Hg] No Primary Care Physician [facility] 05-07-2023 09:42-0400 Body mass index (BMI) [Ratio] 35.9 kg/m2 No Primary Care Physician [facility] 05-07-2023 09:42-0400 Body weight 100.86 kg No Primary Care Physician [facility] 05-07-2023 09:42-0400 Diastolic blood pressure 83 mm[Hg] No Primary Care Physician [facility] 05-07-2023 09:42-0400 Systolic blood pressure 130 mm[Hg] No Primary Care Physician [facility] 05-04-2023 10:36-0400 Body mass index (BMI) [Ratio] 35.9 kg/m2 No Primary Care Physician [facility] 05-04-2023 10:36-0400 Body weight 101.15 kg No Primary Care Physician [facility] 05-04-2023 10:36-0400 Diastolic blood pressure 80 mm[Hg] No Primary Care Physician [facility] 05-04-2023 10:36-0400 Systolic blood pressure 118 mm[Hg] No Primary Care Physician [facility] 04-30-2023 15:51-0400 Diastolic blood pressure 75 mm[Hg] No Primary Care Physician [facility] 04-30-2023 15:51-0400 Heart rate 91 /min No Primary Care Physician [facility] 04-30-2023 15:51-0400 SaO2% (BldA) [Mass fraction] 99 % No Primary Care Physician [facility] 04-30-2023 15:51-0400 Systolic blood pressure 118 mm[Hg] No Primary Care Physician [facility] 04-30-2023 15:50-0400 Body temperature 98.2 [degF] No Primary Care Physician [facility] 04-30-2023 13:51-0400 Body height 167.64 cm No Primary Care Physician [facility] 04-30-2023 13:51-0400 Body mass index (BMI) [Ratio] 36.1 kg/m2 No Primary Care Physician [facility] 04-30-2023 13:51-0400 Body weight 101.6 kg No Primary Care Physician [facility] 04-30-2023 10:00-0400 Body mass index (BMI) [Ratio] 36.1 kg/m2 No Primary Care Physician [facility] 04-30-2023 10:00-0400 Body weight 101.37 kg No Primary Care Physician [facility] 04-30-2023 10:00-0400 Diastolic blood pressure 68 mm[Hg] No Primary Care Physician [facility] 04-30-2023 10:00-0400 Systolic blood pressure 110 mm[Hg] No Primary Care Physician [facility] 04-27-2023 09:02-0400 Body mass index (BMI) [Ratio] 36.1 kg/m2 No Primary Care Physician [facility] 04-27-2023 09:02-0400 Body weight 101.71 kg No Primary Care Physician [facility] 04-27-2023 09:02-0400 Diastolic blood pressure 82 mm[Hg] No Primary Care Physician [facility] 04-27-2023 09:02-0400 Systolic blood pressure 122 mm[Hg] No Primary Care Physician [facility] 04-23-2023 08:30-0400 Body mass index (BMI) [Ratio] 35.6 kg/m2 No Primary Care Physician [facility] 04-23-2023 08:30-0400 Body weight 100.24 kg No Primary Care Physician [facility] 04-23-2023 08:30-0400 Diastolic blood pressure 64 mm[Hg] No Primary Care Physician [facility] 04-23-2023 08:30-0400 Systolic blood pressure 120 mm[Hg] No Primary Care Physician [facility] 04-19-2023 08:58-0400 Body mass index (BMI) [Ratio] 35.5 kg/m2 No Primary Care Physician [facility] 04-19-2023 08:58-0400 Body weight 99.9 kg No Primary Care Physician [facility] 04-19-2023 08:58-0400 Diastolic blood pressure 74 mm[Hg] No Primary Care Physician [facility] 04-19-2023 08:58-0400 Systolic blood pressure 130 mm[Hg] No Primary Care Physician [facility] 04-16-2023 10:23-0400 Body height 167.64 cm No Primary Care Physician [facility] 04-16-2023 10:20-0400 Body mass index (BMI) [Ratio] 36.1 kg/m2 No Primary Care Physician [facility] 04-16-2023 10:20-0400 Body weight 101.66 kg No Primary Care Physician [facility] 04-16-2023 10:20-0400 Diastolic blood pressure 68 mm[Hg] No Primary Care Physician [facility] 04-16-2023 10:20-0400 Systolic blood pressure 128 mm[Hg] No Primary Care Physician [facility] 04-13-2023 09:02-0400 Body mass index (BMI) [Ratio] 35.7 kg/m2 No Primary Care Physician [facility] 04-13-2023 09:02-0400 Body weight 100.47 kg No Primary Care Physician [facility] 04-13-2023 09:02-0400 Diastolic blood pressure 76 mm[Hg] No Primary Care Physician [facility] 04-13-2023 09:02-0400 Systolic blood pressure 117 mm[Hg] No Primary Care Physician [facility] 04-09-2023 08:32-0400 Body mass index (BMI) [Ratio] 35.9 kg/m2 No Primary Care Physician [facility] 04-09-2023 08:32-0400 Body weight 101.15 kg No Primary Care Physician [facility] 04-09-2023 08:32-0400 Diastolic blood pressure 83 mm[Hg] No Primary Care Physician [facility] 04-09-2023 08:32-0400 Systolic blood pressure 132 mm[Hg] No Primary Care Physician [facility] 04-06-2023 15:38-0400 Body weight 101.15 kg No Primary Care Physician [facility] 04-06-2023 08:40-0400 Body mass index (BMI) [Ratio] 36.1 kg/m2 No Primary Care Physician [facility] 04-06-2023 08:40-0400 Body weight 101.37 kg No Primary Care Physician [facility] 04-06-2023 08:40-0400 Diastolic blood pressure 83 mm[Hg] No Primary Care Physician [facility] 04-06-2023 08:40-0400 Systolic blood pressure 132 mm[Hg] No Primary Care Physician [facility] 04-02-2023 09:06-0400 Body mass index (BMI) [Ratio] 35.6 kg/m2 No Primary Care Physician [facility] 04-02-2023 09:06-0400 Body weight 100.35 kg No Primary Care Physician [facility] 04-02-2023 09:06-0400 Diastolic blood pressure 80 mm[Hg] No Primary Care Physician [facility] 04-02-2023 09:06-0400 Systolic blood pressure 123 mm[Hg] No Primary Care Physician [facility] 03-29-2023 15:43-0400 Body mass index (BMI) [Ratio] 35.9 kg/m2 No Primary Care Physician [facility] 03-29-2023 15:43-0400 Body weight 101.15 kg No Primary Care Physician [facility] 03-29-2023 15:43-0400 Diastolic blood pressure 69 mm[Hg] No Primary Care Physician [facility] 03-29-2023 15:43-0400 Heart rate 94 /min No Primary Care Physician [facility] 03-29-2023 15:43-0400 Respiratory rate 16 /min No Primary Care Physician [facility] 03-29-2023 15:43-0400 Systolic blood pressure 112 mm[Hg] No Primary Care Physician [facility] 03-25-2023 13:37-0400 Body mass index (BMI) [Ratio] 36.1 kg/m2 No Primary Care Physician [facility] 03-25-2023 13:37-0400 Body weight 101.6 kg No Primary Care Physician [facility] 03-25-2023 13:37-0400 Diastolic blood pressure 70 mm[Hg] No Primary Care Physician [facility] 03-25-2023 13:37-0400 Systolic blood pressure 120 mm[Hg] No Primary Care Physician [facility] 03-19-2023 10:40-0400 Body mass index (BMI) [Ratio] 36.3 kg/m2 No Primary Care Physician [facility] 03-19-2023 10:40-0400 Body weight 102.17 kg No Primary Care Physician [facility] 03-19-2023 10:40-0400 Diastolic blood pressure 80 mm[Hg] No Primary Care Physician [facility] 03-19-2023 10:40-0400 Systolic blood pressure 128 mm[Hg] No Primary Care Physician [facility] 03-05-2023 14:21-0400 Body height 167.64 cm No Primary Care Physician [facility] 03-05-2023 14:21-0400 Body mass index (BMI) [Ratio] 36.3 kg/m2 No Primary Care Physician [facility] 03-05-2023 14:21-0400 Body weight 102.28 kg No Primary Care Physician [facility] 03-05-2023 14:21-0400 Diastolic blood pressure 72 mm[Hg] No Primary Care Physician [facility] 03-05-2023 14:21-0400 Systolic blood pressure 111 mm[Hg] No Primary Care Physician [facility] 02-04-2023 13:18-0400 Body mass index (BMI) [Ratio] 35.9 kg/m2 No Primary Care Physician [facility] 02-04-2023 13:18-0400 Body weight 101.15 kg No Primary Care Physician [facility] 02-04-2023 13:18-0400 Diastolic blood pressure 75 mm[Hg] No Primary Care Physician [facility] 02-04-2023 13:18-0400 Systolic blood pressure 119 mm[Hg] No Primary Care Physician [facility] 01-04-2023 09:26-0400 Body mass index (BMI) [Ratio] 35.1 kg/m2 No Primary Care Physician [facility] 01-04-2023 09:26-0400 Body weight 98.59 kg No Primary Care Physician [facility] 01-04-2023 09:26-0400 Diastolic blood pressure 81 mm[Hg] No Primary Care Physician [facility] 01-04-2023 09:26-0400 Systolic blood pressure 122 mm[Hg] No Primary Care Physician [facility] 11-26-2022 13:28-0400 Body mass index (BMI) [Ratio] 34.7 kg/m2 No Primary Care Physician [facility] 11-26-2022 13:28-0400 Body weight 97.52 kg No Primary Care Physician [facility] 11-26-2022 13:28-0400 Diastolic blood pressure 80 mm[Hg] No Primary Care Physician [facility] 11-26-2022 13:28-0400 Heart rate 94 /min No Primary Care Physician [facility] 11-26-2022 13:28-0400 Systolic blood pressure 127 mm[Hg] No Primary Care Physician [facility] 09-14-2022 15:15-0500 Body height 167.64 cm No Primary Care Physician [facility] 09-14-2022 15:15-0500 Body mass index (BMI) [Ratio] 33.9 kg/m2 No Primary Care Physician [facility] 09-14-2022 15:15-0500 Body weight 95.36 kg No Primary Care Physician [facility] 09-14-2022 15:15-0500 Diastolic blood pressure 91 mm[Hg] No Primary Care Physician [facility] 09-14-2022 15:15-0500 Systolic blood pressure 146 mm[Hg] No Primary Care Physician [facility] 12-18-2021 10:41-0400 Body height 167.64 cm No Primary Care Physician [facility] Work Phone: 12-18-2021 10:41-0400 Body mass index (BMI) [Ratio] 31.8 kg/m2 No Primary Care Physician [facility] Work Phone: 12-18-2021 10:41-0400 Body weight 89.35 kg No Primary Care Physician [facility] Work Phone: 12-18-2021 10:41-0400 Diastolic blood pressure 72 mm[Hg] No Primary Care Physician [facility] Work Phone: 12-18-2021 10:41-0400 Systolic blood pressure 136 mm[Hg] No Primary Care Physician [facility] Work Phone: Encounters Encounter Date Encounter Type Care Provider Facility Start: 04-05-2025 End: 04-05-2025 Emergency department patient visit GARTH Yen [facility] Start: 04-05-2025 ambulatory Demar WATKINS Facility :[facility] Start: 01-05-2025 End: 01-05-2025 ambulatory No Primary Care Physician [facility] Work Phone: Start: 01-05-2025 End: 01-05-[address] Gilma Bliss MD -Laboratory Work Phone: Start: 01-05-2025 End: 01-05-2025 ambulatory No Primary Care Physician Facility:[facility] Start: 12-14-2024 End: 12-14-[address] Gilma Bliss MD -[facility] Work Phone: Start: 12-14-2024 End: 12-14-2024 ambulatory No Primary Care Physician [facility] Work Phone: Start: 12-07-2024 End: 12-07-[address] Gilma Bliss MD -[facility] Work Phone: Start: 12-07-2024 End: 12-07-2024 ambulatory No Primary Care Physician Facility:[facility] Start: 12-07-2024 End: 12-07-2024 ambulatory No Primary Care Physician [facility] Work Phone: Start: 12-07-2024 End: 12-07-[address] Gilma Bliss MD -[facility] Start: 12-07-2024 End: 12-07-2024 ambulatory No Primary Care Physician Facility:[facility] Start: 12-05-2024 End: 12-05-2024 ambulatory No Primary Care Physician [facility] Work Phone: Start: 12-05-2024 End: 12-05-[address] Julita Hurley DO -Laboratory Work Phone: Start: 12-05-2024 End: 12-05-2024 ambulatory No Primary Care Physician Facility:[facility] Start: 12-03-2024 End: 12-03-2024 Emergency department patient visit GARTH D [facility] Start: 10-06-2024 End: 10-06-2024 Patient encounter procedure Arianna Copeland CNM -[facility] Work Phone: Start: 10-06-2024 End: 10-06-2024 ambulatory No Primary Care Physician Facility:[facility] Start: 10-01-2024 Encounter for other preprocedural examination Julita Hurley [facility] Start: 09-21-2024 Non-patient / Non-visit Dr. Jorge Hurley DO -[facility] Start: 09-21-2024 End: 09-21-2024 Admission to same day surgery center Dr. Julita Hurley DO [facility] Start: 09-21-2024 End: 09-21-2024 ambulatory No Primary Care Physician [facility] Work Phone: Start: 09-20-2024 End: 09-20-2024 ambulatory No Primary Care Physician [facility] Work Phone: Start: 09-20-2024 End: 09-20-[address] [facility] Work Phone: Start: 09-20-2024 End: 09-20-[address] Julita Hurley DO -[facility] Work Phone: Start: 09-20-2024 End: 09-20-2024 ambulatory No Primary Care Physician Facility:[facility] Start: 09-20-2024 End: 09-20-2024 ambulatory No Primary Care Physician Facility:[facility] Start: 09-15-2024 End: 09-15-2024 Patient encounter procedure Juan Cleaning [place] [facility] Work Phone: Start: 09-15-2024 End: 09-15-2024 ambulatory No Primary Care Physician Facility:[facility] Start: 09-07-2024 End: 09-07-2024 Patient encounter procedure Demar WATKINS -[facility] Work Phone: Start: 09-07-2024 End: 09-07-2024 ambulatory Demar WATKINS Facility:[facility] Start: 08-25-2024 End: 08-25-[address] Julita Hurley DO -Laboratory Work Phone: Start: 08-25-2024 End: 08-25-2024 ambulatory No Primary Care Physician Facility:[facility] Start: 08-11-2024 Encounter for gynecological examination (general) (routine) without abnormal findings Arianna Copeland [facility] Start: 08-11-2024 End: 08-11-2024 Patient encounter procedure Arianna RAMÍREZ -[facility] Work Phone: Start: 08-11-2024 End: 08-11-2024 Patient encounter status Arianna Copeland [facility] Start: 08-11-2024 End: 08-11-2024 ambulatory No Primary Care Physician Facility:[facility] Start: 04-07-2024 End: 04-07-2024 ambulatory No Primary Care Physician Facility:[facility] Start: 06-28-2023 End: 06-28-2023 ambulatory No Primary Care Physician [facility] Work Phone: Start: 06-28-2023 End: 06-28-2023 Patient encounter procedure No Primary Care Physician [facility]-Laboratory, Specimen Work Phone: Start: 06-28-2023 End: 06-28-2023 Patient encounter procedure No Primary Care Physician [facility] Work Phone: Start: 06-02-2023 End: 06-02-2023 Patient encounter procedure No Primary Care Physician [facility] Work Phone: Start: 05-20-2023 Non-patient / Non-visit No Elena Gutierrez Physician [facility] Start: 05-19-2023 Non-patient / Non-visit No Elena Gutierrez Physician [facility] Start: 05-18-2023 Non-patient / Non-visit No Elena felix [facility] [place] Physician [facility] Start: 05-17-2023 End: 05-20-2023 Evaluation and management of inpatient No Primary Care Physician [facility] Work Phone: Start: 05-14-2023 End: 05-14-2023 Patient encounter procedure No Primary Care Physician [facility] Work Phone: Start: 05-11-2023 End: 05-11-2023 Patient encounter procedure No Primary Care Physician [facility] [place] Work Phone: Start: 05-07-2023 End: 05-07-2023 Patient encounter procedure No Primary Care Physician [facility] [place] Work Phone: Start: 05-04-2023 End: 05-04-2023 Patient encounter procedure No Primary Care Physician [facility] [place] Work Phone: Start: 04-30-2023 Non-patient / Non-visit No Elena elvira Care Physician [facility] Start: 04-30-2023 End: 04-30-2023 ambulatory No Primary Care Physician [facility] Work Phone: Start: 04-30-2023 End: 04-30-2023 Patient encounter procedure No Primary Care Physician [facility], Out[facility] Work Phone: Start: 04-27-2023 End: 04-27-2023 Patient encounter procedure No Primary Care Physician [facility]-Ultrasound, [facility] Work Phone: Start: 04-27-2023 End: 04-27-2023 Patient encounter procedure No Primary Care Physician [facility] Work Phone: Start: 04-23-2023 End: 04-23-2023 Patient encounter procedure No Primary Care Physician [facility] Work Phone: Start: 04-19-2023 End: 04-19-2023 Patient encounter procedure No Primary Care Physician [facility] [place] Work Phone: Start: 04-16-2023 End: 04-16-2023 Patient encounter procedure No Primary Care Physician [facility] Work Phone: Start: 04-13-2023 End: 04-13-2023 Patient encounter procedure No Primary Care Physician [facility] [place] Work Phone: Start: 04-09-2023 End: 04-09-2023 Patient encounter procedure No Primary Care Physician [facility] Work Phone: Start: 04-06-2023 End: 04-17-2023 ambulatory No Primary Care Physician [facility] Work Phone: Start: 04-06-2023 End: 04-17-2023 Discharged Recurring No Primary Care Physician [facility] Work Phone: Start: 04-06-2023 End: 04-06-2023 Patient encounter procedure No Primary Care Physician [facility] [place] Work Phone: Start: 04-02-2023 End: 04-02-2023 Patient encounter procedure No Primary Care Physician [facility] [place] Work Phone: Start: 03-29-2023 End: 03-29-2023 Patient encounter procedure No Primary Care Physician [facility] Work Phone: Start: 03-26-2023 End: 03-26-2023 Patient encounter procedure No Primary Care Physician [facility] [place] Work Phone: Start: 03-19-2023 End: 03-19-2023 Patient encounter procedure No Primary Care Physician [facility] [place] Work Phone: Start: 03-05-2023 End: 03-05-2023 ambulatory No Primary Care Physician [facility] Work Phone: Start: 03-05-2023 End: 03-05-2023 Patient encounter procedure No Primary Care Physician [facility] Work Phone: Start: 02-04-2023 End: 02-04-2023 Patient encounter procedure No Primary Care Physician [facility] Start: 01-04-2023 End: 01-04-2023 Patient encounter procedure No Primary Care Physician [facility] [place] Work Phone: Start: 12-31-2022 End: 12-31-2022 ambulatory MD NO PRIMARY CARE [facility] Start: 11-26-2022 End: 11-26-2022 Patient encounter procedure No Primary Care Physician [facility] @ Start: 09-14-2022 End: 09-14-2022 ambulatory No Primary Care Physician [facility] Work Phone: Start: 09-14-2022 End: 09-14-2022 Patient encounter procedure No Primary Care Physician [facility], Spec[facility] Start: 09-14-2022 End: 09-14-2022 Patient encounter procedure No Primary Care Physician [facility] [place] Start: 01-05-2022 End: 01-05-2022 Patient encounter procedure No Primary Care Physician [facility]-Ultrasound, [facility] Start: 12-31-2021 End: 12-31-2021 Patient encounter procedure No Primary Care Physician [facility]-Laboratory Start: 12-18-2021 End: 12-18-2021 Patient encounter procedure No Primary Care Physician [facility] Procedures Date Procedure Procedure Detail Performing Clinician Start: 01-05-2025 Laboratory data interpretation No Primary Care Physician Comment on above: No lupus anticoagula nt was detected. Start: 01-05-2025 Lupus anticoagulant assay, platelet neutralization method No Primary Care Physician Start: 01-05-2025 Lupus anticoagulant screening test No Primary Care Physician Start: 01-05-2025 Prothrombin time No Elena elvira Care Physician Start: 01-05-2025 Serum IgM anticardio lipin measurement No Primary Care Physician Comment on above: Negative: <13 Indete rminate: 13 - 20 Low-Med Positive: >20 - 80 High Positive: >80Performed at: [facility] [id number] Director: Hany Crystal MD, Phone: [phone] at: [facility] [id number] Director: Ketan Brand PhD, Phone: [phone] Start: 12-03-2024 Urinalysis GARTH DAUGHERTY Comment on above: Result Comment: URIN ALYSIS Performed By: #### [id number] #### [place] [facility],[address] [address] Start: 09-21-2024 Dilation and curetta ge of uterus No Primary Care Physician Start: 09-20-2024 Urine culture No Primar y Care Physician Start: 04-30-2023 Group B Streptococcu s Culture No Primary Care Physician Start: 04-30-2023 Urine culture No Primar y Care Physician Start: 04-30-2023 Ultrasonography for biophysical profile without non-stress testing No Primary Care Physician Start: 04-27-2023 Ultrasound scan for growth No Primary Care Physician Start: 01-05-2022 Pelvic echography No Pr imary Care Physician Start: 01-05-2022 Transvaginal echography No Primary Care Physician H/O: section Previous c esarean section No Primary Care Physician Comment on above: AOD, narrow pelvis H/O: section Previous c esarean section Dr. Julita Hurley DO H/O: surgery Status post dila tion and curettage No Primary Care Physician H/O: surgery Status post dila tion and curettage Arianna Copeland CNM Plan of Treatment Date Care Activity Detail Author Start: 09-21-2024 Patient discharge [facility] Start: 09-21-2024 Ambulation without limitation [facility] Start: 09-21-2024 Medical regimen orders management [facility] Start: 09-21-2024 Medication education [facility] Start: 09-21-2024 Procedure discontinued [facility] Start: 09-21-2024 Taking patient vital signs [facility] Start: 09-21-2024 Vital signs measurements [facility] Start: 09-21-2024 [facility] Start: 09-21-2024 Anesthesia incomplete/missed ANES INCOMPL/MISSED AB PX [facility] Start: 09-21-2024 Tx missed first trimester surgical CARE OF MISCARRIAGE [facility] Start: 09-20-2024 Bacteria identified in Urine by Culture Urine Culture [facility] Start: 09-20-2024 [facility] Start: 06-28-2023 Liquid based cervical cytology screening [facility] Start: 05-20-2023 Patient discharge [facility] Start: 05-20-2023 Application of abdominal corset [facility] Start: 05-19-2023 [facility] Start: 05-19-2023 Administration of medication [facility] Start: 05-19-2023 Ambulation therapy management [facility] Start: 05-19-2023 Application of device [facility] Start: 05-19-2023 Application of intermittent pneumatic compression device [facility] Start: 05-19-2023 Assessment of risk of venous thromboembolism [facility] Start: 05-19-2023 Catheterization of vein [facility] Start: 05-19-2023 Deep breathing and coughing exercises [facility] Start: 05-19-2023 Exercises [facility] Start: 05-19-2023 Incentive spirometry [facility] Start: 05-19-2023 Measuring intake and output [facility] Start: 05-19-2023 Notification of physician [facility] Start: 05-19-2023 Procedure discontinued [facility] Start: 05-19-2023 Provision of activity privileges [facility] Start: 05-19-2023 Vital signs measurements [facility] Start: 05-19-2023 Wound care [facility] Start: 05-19-2023 [facility] Start: 05-19-2023 Application of abdominal corset [facility] Start: 05-19-2023 Consultation [facility] Start: 05-17-2023 Admission procedure [facility] Start: 04-30-2023 Bacteria identified in Urine by Culture Urine Culture [facility] Start: 04-30-2023 Group B Streptococcus Culture Group B Streptococcus Culture [facility] Start: 04-30-2023 Iv infusion hydration each additional hour HYDRATE IV INFUSION ADD-ON [facility] Start: 04-30-2023 Iv infusion hydration initial 31 min-1 hour HYDRATION IV INFUSION INIT [facility] Start: 04-30-2023 [facility] Start: 04-30-2023 Insertion of catheter into peripheral vein [facility] Start: 04-30-2023 Nonstress test [facility] Start: 04-30-2023 Biophysical profile panel US [facility] Start: 04-30-2023 Obstetric monitoring [facility] Start: 04-30-2023 Ultrasonography for biophysical profile without non-stress testing Biophysical Prof W/O Non Stres [facility] Start: 04-30-2023 Vital signs measurements [facility] Start: 04-30-2023 End: 04-30-2023 [facility] Start: 04-30-2023 Patient discharge [facility] Start: 09-14-2022 Liquid based cervical cytology screening [facility] Start: 09-14-2022 Patient referral [facility] Work Phone: Start: 12-31-2021 Procedure [facility] Work Phone: Start: 12-31-2021 Dehydroepiandrosterone sulfate (DHEA-S) [Mass/volume] in Serum or Plasma [facility] Work Phone: Start: 12-31-2021 Testosterone Free [Mass/volume] in Serum or Plasma [facility] Work Phone: Beta 2 glycoprotein 1 Ab IgA and IgG and IgM panel - Serum [facility] Beta 2 glycoprotein 1 Ab IgA and IgG and IgM panel - Serum [facility] Beta-hemolytic Strep tococcus culture [facility] Cardiolipin IgG and IgM panel - Serum [facility] Cardiolipin IgG and IgM panel - Serum [facility] Chlamydia deoxyribon ucleic acid detection [facility] Choriogonadotropin ( test) [Presence] in Serum or Plasma [facility] Dehydroepiandrostero ne sulfate (DHEA-S) [Mass/volume] in Serum or Plasma [facility] Work Phone: Hemoglobin A1c/Hemog lobin.total in Blood [facility] Hemoglobin A1c/Hemog lobin.total in Blood [facility] Lupus anticoagulant assay [facility] Lupus anticoagulant assay [facility] Path report.final Dx Spec [facility] Path report.final Dx Spec [facility] Patient Education Kick Counts ED False Labor OB Triage: Return to Hospital or Notify Physician if you Experience: [facility] Work Phone: Patient referral [facility] Work Phone: Procedure [facility] Work Phone: Testosterone Free [M ass/volume] in Serum or Plasma [facility] Work Phone: Thyroid stimulating hormone measurement [facility] Thyroid stimulating hormone measurement [facility] Ultrasound scan for growth [facility] Urine culture [facility] US Pelvis [facility] Work Phone: US Pelvis transvaginal [facility] Work Phone: [facility] Payers Date Payer Category Payer Self-pay [id number] 2023 Unknown [id number] 1993 Unknown [id number] 2.16. [id number] 1993 Unknown [id number] 2.16.8 [id number] 1993 Unknown [id number] 2.16.8 [id number] Unknown [facility] P[employer]AN . [id number] Unknown [id number] 2.16.8 [id number] Unknown [id number] 2.16.8 [id number] Unknown [id number] 2.16.8 [id number] Unknown [id number] 2.16.8 [id number] Unknown [id number] 2.16.8 40.1.262251.3.579.2.462 Unknown [id number] 2.16.8 40.1.042774.3.579.2.462 Unknown [id number] 2.16.8 40.1.075350.3.579.2.462 Unknown [id number] 2.16.8 40.1.453808.3.579.2.462 Unknown [id number] 2.16.8 40.1.503230.3.579.2.462 Unknown [id number] 2.16.8 40.1.759546.3.579.2.462 Unknown [id number] 2.16.8 40.1.061651.3.579.2.462 Unknown [id number] 2.16.8 40.1.093763.3.579.2.462 Unknown [id number] 2.16.8 40.1.215751.3.579.2.462 Unknown [id number] 2.16.8 40.1.002395.3.579.2.462 Unknown [id number] 2.16.8 [id number] Unknown [id number] 2.16.8 [id number] Social History Date Type Detail Facility Start: 12-18-2021 End: 06-28-2023 Tobacco smoking status LAIS Unknown if ever smoked [facility] Start: 1995 Sex Assigned At Female [facility] Start: 09-21-2024 End: 09-21-2024 Tobacco smoking status NHIS Smokes tobacco daily (finding) [facility] Start: 09-21-2024 End: 10-01-2024 Sex Female (finding) [facility] NEGATED: Highlighted row Not [facility] Medical Equipment Procedure Code Equipment Code Equipment Origin al Text Equipment Identifier Dates Blood Sugar Diagnostic (Blood Glucose Test) strip Start: 03-05-2023 Lancets Start: 03-05-2023 Blood Sugar Diagnostic (Blood Glucose Test) strip Start: 03-05-2023 Lancets Start: 03-05-2023 Blood Sugar Diagnostic (Blood Glucose Test) strip Start: 03-05-2023 Lancets Start: 03-05-2023 Blood Sugar Diagnostic (Blood Glucose Test) strip Start: 03-05-2023 Lancets Start: 03-05-2023 Blood Sugar Diagnostic (Blood Glucose Test) strip Start: 03-05-2023 End: 06-02-2023 Lancets Start: 03-05-2023 End: 06-02-2023 Blood Sugar Diagnostic (Blood Glucose Test) strip Start: 03-05-2023 End: 06-02-2023 Lancets misc Start: 03-05-2023 End: 06-02-2023 Blood Sugar Diagnostic (Blood Glucose Test) strip Start: 03-05-2023 End: 06-02-2023 Lancets misc Start: 03-05-2023 End: 06-02-2023 Blood Sugar Diagnostic (Blood Glucose Test) strip Start: 03-05-2023 End: 06-02-2023 Lancets misc Start: 03-05-2023 End: 06-02-2023 Blood Sugar Diagnostic (Blood Glucose Test) strip Start: 03-05-2023 End: 06-02-2023 Lancets misc Start: 03-05-2023 End: 06-02-2023 Blood Sugar Diagnostic (Blood Glucose Test) strip Start: 03-05-2023 End: 06-02-2023 Lancets misc Start: 03-05-2023 End: 06-02-2023 Blood Sugar Diagnostic (Blood Glucose Test) strip Start: 03-05-2023 End: 06-02-2023 Lancets misc Start: 03-05-2023 End: 06-02-2023 Goals Date Patient Goal Desired Activity /State Mental Status Date Assessment Result Facility 09-21-2024 Cognitive function Voice/Name [facility] Work Phone: 05-19-2023 Cognitive function Level Of Cons ciousness Awake;Alert;Appropriate [facility] Work Phone: Clinical Notes 05-18-2023 to 09-21-2024 Note Date & Type Note Facility 09-21-2024 Consult note [facility] 09-21-2024 History and physical note [facility] 09-21-2024 Consult note Note Date/Time September 21, 2024 2:09pm [facility] Medical Records Department [address] [place] [address] Pre-Anesthesia Evaluation 09/21/24 1400 MR#: [id number] Acct: [id number] Name: ARIANNA KERR Rep #:[id number] : 1995 28 From: Juauqin Casper MD PCP: Care Physician,No Primary Status :REG SDC Y Race: UTD Location: [place] [address] ASA Classification* ASA Classification ASA Classification: 2 Assessment & Plan Anesthesia* Anesthesia Assessment Anesthesia Assessment: Discussed sedation and/or anesthesia options, risks, benefits, and alternatives with patient/parents/legal guardian/POA. Questions invited. The patient/parents/legal guardian/POA seems to understand and agrees to proceedwith anesthesia plan. Reviewed the physical assessment, medical history, allergy history and patient home medications list prior to surgery/procedure/anesthetic and documented any changes. Performed airway and anesthesia risk assessments. Anesthesia Type Anesthesia Type: MAC History Source History Obtained from:: Patient and Chart Anesthesia Focused Assessment* Temperature: 99 F Pulse Rate: 86 Blood Pressure: 118/82 Respiratory Rate: 17 Pulse Ox: 86 Oxygen Delivery Method: Room Air Airway Assessment Mouth opens: >3 cm Mallampati Score: II Teeth Condition: Intact Neck Range of motion (ROM): Full ROM Focused Labs Anesthesia Preop lab: CBC WBC 9.2 K/mm3 (4.4-11.0) 09/21/24 12:50 09/21/24 RBC 5.11 M/mm3 (4.2-5.4) 09/21/24 12:50 09/21/24 Hgb 15.0 g/dL (12.0-15.0) 09/21/24 12:50 09/21/24 Hct 45.0 % (37-47) 09/21/24 12:50 09/21/24 Plt Count 283 K/mm3 (150-450) 09/21/24 12:50 09/21/24 CHEMISTRY POC Glucose 73 mg/dL (74-106) L 05/19/23 08:08 05/19/23 TSH 3.72 uIU/mL (0.358-3.74) 12/31/21 12:34 COAG HCG, Quant 6744 mIU/mL (1-3) H 08/25/24 14:24 08/25/24 Pre-Assessment Diagnosis/Proposed Procedure Planned Operative Procedure(s): SUCTION, D&C Anesthesia History 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 When Was Last Pacemaker Check QUESTION #4 FULL TEXT: You/Your Family Experience fever (hyperthermia) with Anesthesia Last Oral Intake Last Oral intake: Last Oral Intake NPO since 00:00 09/21/24 13:22 Meds taken in AM with sips of No 09/21/24 13:22 water? Meds patient instructed to take am of surgery Any additional information?: Yes NPO since: 09:00 (Water at 9 am) PONV PONV - entry level manufacturing engineer: PONV - entry level manufacturing engineer Female Yes 09/20/24 14:36 HX of Motion Sickness No 09/20/24 14:36 HX of N/V After Surgery No 09/20/24 14:36 Non-Smoker No 09/20/24 14:36 Duration of Surgery greater No 09/20/24 14:36 than 60 minutes Number of Risk Factors 1 09/20/24 14:36 PONV Score Low Risk 09/20/24 14:36 Height & Weight Height & Weight: Anesthesia: Height & Weight Height 5 ft 5 in 09/21/24 13:22 Weight: 91 kg 09/21/24 13:22 Body Mass Index (BMI) 33.3 09/21/24 13:22 Respiratory Assessment Respiratory Assessment - entry level manufacturing engineer: Respiratory Tract Infection Hx - entry level manufacturing engineer Hx Respiratory Tract Infection Yes: LARYNGITIS 09/20/24 14:36 Any additional information?: Yes Hx Respiratory Tract Infection: Yes (Laryngitisis currently improving on steroids.) STOP Sleep Apnea STOP Sleep Apnea - entry level manufacturing engineer: STOP Sleep Apnea - entry level manufacturing engineer Hx Hypertension No 09/20/24 14:36 Hx Sleep Apnea No 09/20/24 14:36 CPAP BIPAP Do you snore loudly (louder No 09/20/24 14:36 than talking or can be heard Do you often feel tired/ No 09/20/24 14:36 fatigued/ sleepy during daytime? Has anyone observed you stop No 09/20/24 14:36 breathing during sleep? STOP Results Negative 09/20/24 14:36 QUESTION #5 FULL TEXT : Do you snore loudly (louder than talking or can be heard through closed doors)? 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 Specify any problems Hx of Preganancy in last 3 N/A 09/20/24 14:36 Months Nurse Filling Out Transfusion NBUCHER 09/20/24 14:36 & Questions: Date: 09/20/24 09/20/24 14:36 Time: 14:37 09/20/24 14:36 Patient unable to answer at this time (ie. 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) Hirsutism Tobacco use Home Medications ?Medication ?Instructions ?Recorded ?Last Taken ?Type multivitamin no.47-iron fum 27 1 cap PO DAILY 09/05/24 09/20/24 History mg-folate no.1 1 mg-dha 300 mg capsule (PNV-DHA) Allergy/AdvReac Type Severity Reaction Status Date / Time No Known Allergies Allergy Verified 09/21/24 12:46 Family History Father Kidney disease, Onset Age: 48 Surgical History Previous section History of right knee surgery Social History adopted: No household members: spouse and children housing: house number of children: 1 current occupational status: employed current occupation: [employer] current occupational exposures/hazards: No pets and animals: Yes ( doing litter) pets and animals: cat(s) and fish history of recent travel: No sexually active: Yes Smoking Status: Current every day smoker tobacco type: cigarettes and e-cigarettes Tobacco: How many years used: 12 Electronic Cigarette Use: with nicotine quit status: considering quitting alcohol intake: never substance use type: former substance user Date of last use: 08/07/24 and marijuana well-balanced diet: daily or most days caffeine: Yes Type: coffee Number of servings: 1 eating out: 1-3 times/week during the past year weight has: decreased > 10 lbs what type of physical activity do you participate in: none suraj/oriental orthodox: None seatbelt use: always do you feel safe at home: Yes additional social history: Bernadette work at [employer] Review of Systems (Anesthesia) ROS Narrative System reviewed and no additional complaints, except as documented. 09/21/24 3383 <Electronically signed by Juaquin aviles MD> Date _ Juaquin Casper MD Cosigner Signature: Date CC: ~ Signed [facility] Work Phone: 1(409) 221-568103-06-2025 Discharge summary Author Julita Leal [facility] Note Date/Time September 21, 2024 1:07 pm [facility] Medical Records Department [address] [place] [address] Instructions for Home/Discharge Instructions 09/21/24 1306 MR#: [id number] Acct: [id number] Name: ARIANNA KERR Rep #:[id number] : 1995 28 From: Julita Hurley DO PCP: Care Physician,No Primary Status :REG SDC Discharge Instructions Diet Discharge Diet: No restrictions DC O2, CPAP, BIPAP needs Home O2 Discharge instructions: No Dressing / Incision Discharge Activity: Return to Normal Activity, May Shower and May Take a Tub Bath (after 1 week) May resume sexual activity in: 1-2 weeks Weight Bearing Status: Weight bearing as tolerated Lifting Restrictions: none Dressing / Incision Call your doctor if you observe: Fever of 101 or Higher, Using more than 1 pad per hour, Shortness of breath and Uncontrolled pain Follow Up Care Please Follow Up With: Julita Hurley DO When: Call [phone] to schedule appointment. Test Results: Test results from this visit will be discussed in further detail at your follow- up appointment, if applicable. Discharge Plan Admission Attending Provider: Julita Hurley Primary Care Provider: Brenda Physician,Yani Primary Instructions Print Language: Thai Discharge Orders/Prescriptions Prescriptions: No Action PNV-DHA 27 mg iron-1 mg -300 mg capsule 1 cap PO DAILY Referrals / Follow Up: Care Physician,No Primary [Primary Care Provider] - Disposition Disposition (needs filled in before D/C Order can be placed): Home, Self Care 09/21/24 1307<Electronically signed by Julita Hurley DO>Julita Hurley DO CC: No Primary Care Physician ~ Signed [facility] Work Phone: 1(337) 881-967703-06-2025 History and physical note Author Julita Leal [facility] Note Date/Time September 21, 2024 4:20 pm [facility] Medical Records Department [address] [place] [address] History & Physical Exam 09/21/24 1306 MR#: [id number] Acct: [id number] Name: ARIANNA KERR Rep #:[id number] : 1995 28 From: Julita Hurley DO PCP: Care Physician,No Primary Status :REG SD Location: [place] [address] History and Physical Date of Admission: 09/21/24 Vital Signs 08/11/2508:20 09/07/2507:18 09/20/2509:20 Height 5 ft 5 in 5 ft 5 in 5 ft 5 in Weight: 200 lb BMI 33.3 BP 132/86 H Intake Visit Reasons: New OB, LMP 1/, SARA 04/28/25 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 Required: No Is patient in pain?: No Allergies No Known Allergies Allergy (Verified 09/20/24 10:18) Medications ?Medication ?Instructions ?Recorded ?Confirmed ?Type multivitamin no.47-iron fum 27 cap PO 09/05/24 09/07/24 History mg-folate no.1 1 mg-dha 300 mg capsule (PNV-DHA) guaifenesin 600 mg tablet, 600 mg PO BID PRN congestion #14 5 09/20/24 Rx extended release 12 hr tabs methylprednisolone 4 mg tablets in 4 mg PO PER PKG DIR 6 days #21 tabs 08/2009/20/24 Rx a dose pack (Medrol (Jose Carlos)) ondansetron HCl 4 mg tablet 4 mg PO Q6H PRN nausea and 09/20/2412/10 Rx vomiting #60 tabs Last Menstrual Period: 07/22/24 Zika: Zika virus screening: Negative : No PFSH PFSH Medical History delivery delivered Polyhydramnios affecting 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) Hirsutism Tobacco use Surgical History Previous section History of right knee surgery Family History Father Kidney disease, Onset Age: 48 Social History adopted: No household members: spouse and children housing: house number of children: 1 service: No current occupational status: employed current occupation: [employer] current occupational exposures/hazards: No pets and animals: Yes ( doing litter) pets and animals: cat(s) and fish history of recent travel: No sexually active: Yes Smoking Status: Current some day smoker Tobacco: How many years used: 12 Electronic Cigarette Use: with nicotine quit status: considering quitting alcohol intake: never substance use type: former substance user Date of last use: 08/07/24 and marijuana well-balanced diet: daily or most days caffeine: Yes Type: coffee Number of servings: 1 eating out: 1-3 times/week during the past year weight has: decreased > 10 lbs what type of physical activity do you participate in: none suraj/oriental orthodox: None seatbelt use: always do you feel safe at home: Yes additional social history: Kenn-Both work at [employer] History 2 Elective abortions Hx Para 1 Spontaneous abortions Hx # Term Pregnancies Ectopic pregnancies Hx # Pregnancies Multiple births # of living children 1 Past Pregnancies Del. Date Name GA/Weeks Outcome Route Bth Weight Infant Gen Labor Lgth Anesthesia Del Locatn Provider FOB 05/18/23 Simon 39 live - full term 6lbs 13 oz Female epidural [facility] Delivery Date: 05/18/23 Last Updated by: Faith Solis aod, 9cm sm kw 39 gdm. HPI New OB, LMP 07/22, SARA 04/28/25 Details: ARIANNA KERR is a 28 year old who presents for New OB visit. OB Visit SARA Calculator Estimated Delivery Date Method Current WG Current Estimate 04/28/25 LMP (Certain) 8w 4d Comments: HIV: Urine Culture: Sequential Screen: NIPT Screen: Estimated Due Date: 04/28/25 Initial Weight: Not Recorded Date -?-?-?-?-?-?-?-?-?-?-?-?- EGA Weight BP Urine Prot -?-?-?-?-?-?-?-?-?-?-?-?- Glucose FHR FuHt Pres Dilation -?-?-?-?-?-?-?-?-?-?-?-?- Effaced St Visit Note 09/20/24-?-?-?-?-?-?-?-?-?-?-?-?- 8w 4d 200 lb 132/86 -?-?-?-?-?-?-?-?-?-?-?-?- 0 -?-?-?-?-?-?-?-?-?-?-?-?- JV- CRL measuring 6 weeks 5 days without heart tones. missed diagnosed Menstrual History Last Menstrual Period: 07/22/24 Reported LMP: definite Normal amount/duration: Yes Frequency in days: 28 On hormonal BC at conception: No hCG+: 08/23/24 Antepartum Record Genetic Screening: Congenital Heart Defect: Partner (father hole in heart), Neural Tube Defect: Other, Hemoglobinopathy Or Carrier: Other, Cystic Fibrosis: Other, Chromosome Abnormality: Other, Hakan-Sachs: Other, Hemophilia: Other, Intellectual Disability/Autism: Other, Recurrent Loss/Stillbirth: Other, Other Structural Defect: Other, Other Genetic Disease: Other and Maternal Metabolic Disorder: Other Infection History: Live with someone with TB or Exposed to TB: No, Patient or Partner has history of Genital Herpes: No, Rash or Viral illness since last mentrual period: Yes (current cold/sore throat-enc urgent care & reviewed safe OTC's for sx), Prior GBS-Infected child: No, History of STD: No, HIV Infection: No, History of Hepatitis: No, Recent travel outside of [place]: No, Concern for hepatitis exposure: No, Varicella immune: Yes (immune) and Covid Vaccinated: No Medical History Medical History: Positive: Diabetes (GDM), 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 surgery (c section), Operations/hospitalizations (right knee surgery), History of abnormal pap (Hx ofLGSIL w/+HPV, last pap Neg), Relevant family history (Father Kidney failure) andOther (narrow pelvis, obesity) and Negative: Hypertension, Heart disease, Auto-immune disorder, Kidney disease/UTI, Neurologic/epilepsy, Psychiatric, Depression/ depression, Hepatitis/liver disease, Varicosities/phlebitis, Thyroid dysfunction, Trauma/domestic violence, History of blood transfusions, D (Rh) Sensitized, Pulmonary (e.g.,TB,Asthma), Seasonal allergies, Drug/latex allergies/reactions, Breast, Anesthetic complications, Uterine anomaly/cosmo, Infertility and Anti-retroviral treatment ACOG First Trimester First Trimester: Discussed Second Trimester Second Trimester: Signs and Symptoms of Labor, Selecting a care provider, Reproductive Life Planning & Contreception, Care Planning, Depression/Anxiety and Intimate Partner Violence; Discussed Tobacco Cessation Third Trimester Third Trimester: Pain Management Plans, Labor support person(s), Immediate Larc, Movement Monitoring, Signs and Symptoms of Preeclampsia and Education ROS Const Reports system reviewed and no additional complaints, except as documented, Reports fatigue and Denies fever(s) Eyes Reports system reviewed and no additional complaints, except as documented ENT Reports system reviewed and no additional complaints, except as documented Card Denies chest pain and Denies dyspnea Resp Reports system reviewed and no additional complaints, except as documented, Denies cough and Denies dyspnea GI Denies abdominal pain and Reports nausea Reports system reviewed and no additional complaints, except as documented Musc Reports system reviewed and no additional complaints, except as documented Skin/Breast Reports system reviewed and no additional complaints, except as documented Neuro Yes system reviewed and no additional complaints, except as documented Psych Reports system reviewed and no additional complaints, except as documented Endo Reports system reviewed and no additional complaints, except as documented and Reports fatigue Exam Const General: healthy appearing, comfortable and no acute distress Orientation: alert [facility] Head: normal to inspection, normocephalic and atraumatic Ears: hearing grossly normal bilaterally and external ears normal Nose: external nose normal and nares normal Mouth: oral mucosae normal Teeth and gingiva: dentition normal Eyes General: appearance normal, both eyes and all related structures Neck Neck: normal visual inspection, no lymphadenopathy and supple Thyroid: thyroid normal Resp Effort & Inspection: normal respiratory effort GI Inspection: normal to inspection Palpation: soft and no hepatosplenomegaly General: bladder normal to palpation External Female Exam: normal external appearance and normal appearance of the urethra Urethra: normal appearance of the urethra Speculum Exam - Vagina: normal appearance of the vagina and normal vaginal discharge Speculum Exam - Cervix: normal appearance of the cervix Bimanual Exam- Vagina & Uterus: normal bimanual exam, bladder normal to palpation, non-tender and other Bimanual Exam- Adnexa, other: non-tender Skin General: no rashes or lesions noted Neuro Motor: muscle tone normal throughout and no movement abnormalities noted Extrem General: normal to inspection and full ROM Supplemental Info ACOG book given and patient encouraged to read about nutrition, exercise, weight gain, and food avoidance in . Coding Level of Care Code Off vis,est,level 4 Diagnoses Z34.90 Obesity affecting O99.210 Marijuana smoker in remission F12.21 Current every day vaping Z72.89 Hx of gestational diabetes in prior , currently O09.299; Z86.32 Previous section Z98.891 LGSIL (low grade squamous intraepithelial dysplasia) Missed O02.1 Assessment and Plan Assessment and Plan (1) : Status: Acute Comment: elects NIPT with Gender (2) Obesity affecting : Status: Acute Comment: HgbA1c (3) Marijuana smoker in remission: Status: Acute Comment: Pt last used 08/07/24, informed initial and random tox screens to be done, education provided,encouraged (4) Current every day vaping: Status: Acute Comment: nicotine, considering quitting, smoking in education provided, discussed cessation (5) Hx of gestational diabetes in prior , currently : Status: Acute Comment: HgbA1c (6) Previous section: Status: Acute Comment: AOD, narrow pelvis (7) LGSIL (low grade squamous intraepithelial dysplasia): Status: Acute Comment: repeat 2021 pap 2019 ASCUS HPV positive, 06/28/23 Neg (8) Missed : Status: Acute Orders: Orders Culture, Urine 09/05/24 O09.90 - Supervision of high risk , unspecified, unspecified trimester Chlamydia/GC LEO aptima 09/05/24 O09.90 - Supervision of high risk , unspecified, unspecified trimester Medications: New ondansetron HCl 4 mg PO Q6H PRN 60 tabs 4RF nausea and vomiting Plan After discussing the patient's diagnosis and treatment plan options, patient wishes to proceed with surgical management. I have discussed with the patient the risks, benefits, and alternatives of the procedure which include but are notlimited to risks of anesthesia, bleeding, infection, possible damage to bowel, bladder, or surrounding vasculature which could lead to additional surgery to evaluate any complications. Patient agrees to procedure and wishes to proceed. ACOG/uptodate references given for additional information regarding procedure. plan suction D&C 09/21/24 1306 <Electronically signed by Julita Hurley DO> Cosigner Signature (if applicable): CC: Dr. Julita Hurley DO; No Primary Care Physician~ Signed [facility] Work Phone: 1(460) 199-123603-06-2025 Procedure note [facility] Medical Records Department [address] [place] [address] Operative Report 09/21/24 1427 MR#: [id number] Acct: [id number] Name: ARIANNA KERR Rep #:[id number] : 1995 28 From: Julita Hurley DO PCP: Care Physician,No Primary Status :[facility] Location: [place] [address]- Problems Associated Problem List Diagnoses (1) Missed : Multi Select Codes Urinary/Genital Urinary/Genital CPT Codes: 13170 Surg Trtmt missed Ab 1TM Operative Report (Standard) Operative Information Date of Procedure: 09/21/24 Pre-Operative Diagnosis: 8 weeks ,missed Post-Operative Diagnosis: 8 weeks ,missed Surgery/Procedure Performed: suction dilation and curettage airplane cabin attendant: No Type of Anesthesia: MAC and Topical Anesth RN Documented Start/Stop Times: Operation Date: 09/21/24 14:00 Case Time Into Pre-Op 09/21/24 12:47 Out of Pre-Op 09/21/24 14:11 Procedure Start Time: 14:35 Procedure Stop Time: 14:44 Select all DRAINS/GRAFTS/IMPLANTS that apply: None Estimated Blood Loss: 30cc Specimen collected: Yes Description of specimen(s) removed: products of conception Description of surgery: Patient was taken to the operating room and placed under MAC local anesthesia. She was prepped and draped in the normal sterile fashion the dorsal lithotomy position. Bladder was drained of clear urine and anterior lip of the cervix wasgrasped and the uterus sounded to 13cm. Cervix was progressively dilated to allow passage of a size 8 suction curette. Progressive passes were made removing the retained products of conception without complication. Sharp curettage confirmed complete removal of the retained products. This was confirmed by bedside ultrasound. All instruments were removed from thevagina and excellent hemostasis was noted and the patient was taken to recovery in stable condition. Surgical Findings: 8 week IUP without heart tones. normal vagina and cervix Complications Complications: No Admit VTE Documentation VTE Present on Admission: No VTE Mechan Device Prophylaxis: SCD's VTE Pharm Prophylaxis ordered?: No 09/21/24 1447 Cosigner Signature (if applicable): CC: Dr. Julita Hurley, DO; No Primary Care Physician~ Signed [facility]03-06-2025 Consult note [facility] Medical Records Department [address] [facility] [place] [address] Pre-Anesthesia Evaluation 09/21/24 1400 MR#: [id number] Acct: [id number] Name: ARIANNA KERR Rep #:[id number] : 1995 28 From: Juaquin Casper MD PCP: Care Physician,No Primary Status [place] [place] Race: TXD Location: AC AC19-1 ASA Classification* ASA Classification ASA Classification: 2 Assessment & Plan Anesthesia* Anesthesia Assessment Anesthesia Assessment: Discussed sedation and/or anesthesia options, risks, benefits, and alternatives with patient/parents/legal guardian/POA. Questions invited. The patient/parents/legal guardian/POA seems to understand and agrees to proceedwith anesthesia plan. Reviewed the physical assessment, medical history, allergy history and patient home medications list prior to surgery/procedure/anesthetic and documented any changes. Performed airway and anesthesia risk assessments. Anesthesia Type Anesthesia Type: MAC History Source History Obtained from:: Patient and Chart Anesthesia Focused Assessment* Temperature: 99 F Pulse Rate: 86 Blood Pressure: 118/82 Respiratory Rate: 17 Pulse Ox: 86 Oxygen Delivery Method: Room Air Airway Assessment Mouth opens: >3 cm Mallampati Score: II Teeth Condition: Intact Neck Range of motion (ROM): Full ROM Focused Labs Anesthesia Preop lab: CBC WBC 9.2 K/mm3 (4.4-11.0) 09/21/24 12:50 09/21/24 RBC 5.11 M/mm3 (4.2-5.4) 09/21/24 12:50 09/21/24 Hgb 15.0 g/dL (12.0-15.0) 09/21/24 12:50 09/21/24 Hct 45.0 % (37-47) 09/21/24 12:50 09/21/24 Plt Count 283 K/mm3 (150-450) 09/21/24 12:50 09/21/24 CHEMISTRY POC Glucose 73 mg/dL (74-106) L 05/19/23 08:08 05/19/23 TSH 3.72 uIU/mL (0.358-3.74) 12/31/21 12:34 COAG HCG, Quant 6744 mIU/mL (1-3) H 08/25/24 14:24 08/25/24 Pre-Assessment Diagnosis/Proposed Procedure Planned Operative Procedure(s): SUCTION, D&C Anesthesia History 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 When Was Last Pacemaker Check QUESTION #4 FULL TEXT: You/Your Family Experience fever (hyperthermia) with Anesthesia Last Oral Intake Last Oral intake: Last Oral Intake NPO since 00:00 09/21/24 13:22 Meds taken in AM with sips of No 09/21/24 13:22 water? Meds patient instructed to take am of surgery Any additional information?: Yes NPO since: 09:00 (Water at 9 am) PONV PONV - entry level manufacturing engineer: PONV - entry level manufacturing engineer Female Yes 09/20/24 14:36 HX of Motion Sickness No 09/20/24 14:36 HX of N/V After Surgery No 09/20/24 14:36 Non-Smoker No 09/20/24 14:36 Duration of Surgery greater No 09/20/24 14:36 than 60 minutes Number of Risk Factors 1 09/20/24 14:36 PONV Score Low Risk 09/20/24 14:36 Height & Weight Height & Weight: Anesthesia: Height & Weight Height 5 ft 5 in 09/21/24 13:22 Weight: 91 kg 09/21/24 13:22 Body Mass Index (BMI) 33.3 09/21/24 13:22 Respiratory Assessment Respiratory Assessment - entry level manufacturing engineer: Respiratory Tract Infection Hx - entry level manufacturing engineer Hx Respiratory Tract Infection Yes: LARYNGITIS 09/20/24 14:36 Any additional information?: Yes Hx Respiratory Tract Infection: Yes (Laryngitisis currently improving on steroids.) STOP Sleep Apnea STOP Sleep Apnea - entry level manufacturing engineer: STOP Sleep Apnea - entry level manufacturing engineer Hx Hypertension No 09/20/24 14:36 Hx Sleep Apnea No 09/20/24 14:36 CPAP BIPAP Do you snore loudly (louder No 09/20/24 14:36 than talking or can be heard Do you often feel tired/ No 09/20/24 14:36 fatigued/ sleepy during daytime? Has anyone observed you stop No 09/20/24 14:36 breathing during sleep? STOP Results Negative 09/20/24 14:36 QUESTION #5 FULL TEXT : Do you snore loudly (louder than talking or can be heard through closeddoors)? 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 Specify any problems Hx of Preganancy in last 3 N/A 09/20/24 14:36 Months Nurse Filling Out Transfusion NBUCHER 09/20/24 14:36 & Questions: Date: 09/20/24 09/20/24 14:36 Time: 14:37 09/20/24 14:36 Patient unable to answer at this time (ie. 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) Hirsutism Tobacco use Home Medications ?Medication ?Instructions ?Recorded ?Last Taken ?Type multivitamin no.47-iron fum 27 1 cap PO DAILY 09/05/24 09/20/24 History mg-folate no.1 1 mg-dha 300 mg capsule (PNV-DHA) Allergy/AdvReac Type Severity Reaction Status Date / Time No Known Allergies Allergy Verified 09/21/24 12:46 Family History Father Kidney disease, Onset Age: 48 Surgical History Previous section History of right knee surgery Social History adopted: No household members: spouse and children housing: house number of children: 1 current occupational status: employed current occupation: [employer] current occupational exposures/hazards: No pets and animals: Yes ( doing litter) pets and animals: cat(s) and fish history of recent travel: No sexually active: Yes Smoking Status: Current every day smoker tobacco type: cigarettes and e-cigarettes Tobacco: How many years used: 12 Electronic Cigarette Use: with nicotine quit status: considering quitting alcohol intake: never substance use type: former substance user Date of last use: 08/07/24 and marijuana well-balanced diet: daily or most days caffeine: Yes Type: coffee Number of servings: 1 eating out: 1-3 times/week during the past year weight has: decreased > 10 lbs what type of physical activity do you participate in: none suraj/oriental orthodox: None seatbelt use: always do you feel safe at home: Yes additional social history: Bernadette work at [employer] Review of Systems (Anesthesia) ROS Narrative System reviewed and no additional complaints, except as documented. 09/21/24 1409 traci JOHN> Date _ Juaquin Casper MD Cosign Signature: Date CC: ~ Signed [facility]03-06-2025 Discharge summary [facility] Medical Records Department [address] [place] [address] Instructions for Home/Discharge Instructions 09/21/24 1306 MR#: [id number] Acct: [id number] Name: ARIANNA KERR Rep #:[id number] : 1995 28 From: Julitakassi Hurley DO PCP: Care Physician,No Primary Status :REG SDC Discharge Instructions Diet Discharge Diet: No restrictions DC O2, CPAP, BIPAP needs Home O2 Discharge instructions: No Dressing / Incision Discharge Activity: Return to Normal Activity, May Shower and May Take a Tub Bath (after 1 week) May resume sexual activity in: 1-2 weeks Weight Bearing Status: Weight bearing as tolerated Lifting Restrictions: none Dressing / Incision Call your doctor if you observe: Fever of 101 or Higher, Using more than 1 pad per hour, Shortness of breath and Uncontrolled pain Follow Up Care Please Follow Up With: Julita Hurley DO When: Call [phone] to schedule appointment. Test Results: Test results from this visit will be discussed in further detail at your follow- up appointment, if applicable. Discharge Plan Admission Attending Provider: Julita Hurley Primary Care Provider: Brenda Mayo,Yani Primary Instructions Print Language: Thai Discharge Orders/Prescriptions Prescriptions: No Action PNV-DHA 27 mg iron-1 mg -300 mg capsule 1 cap PO DAILY Referrals / Follow Up: Care Physician,No Primary [Primary Care Provider] - Disposition Disposition (needs filled in before D/C Order can be placed): Home, Self Care 09/21/24 [facility] Timothy Leal DO CC: No Primary Care Physician ~ Signed [facility]03-06-2025 [facility] Medical Records Department [address] [place] [address] History Physical Exam 09/21/24 1306 MR#: [id number] Acct: [id number] Name: ARIANNA KERR Rep #: [id number] : 1995 28 From: Julita Hurley DO PCP: Care Physician,No Primary Status:REG [place] Location: [place] [address] History and Physical Date of Admission: 09/21/24 Vital Signs 08/11/2508:20 09/07/2507:18 09/20/2509:20 Height 5 ft 5 in 5 ft 5 in 5 ft 5 in Weight: 200 lb BMI 33.3 BP 132/86 H Intake Visit Reasons: New OB, LMP 07/22, SARA 04/28/25 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 Required: No Is patient in pain?: No Allergies No Known Allergies Allergy (Verified 09/20/24 10:18) Medications ???Medication ???Instructions ???Recorded ???Confirmed ???Type multivitamin no.47-iron fum 27 cap PO 09/05/24 09/07/24 History mg-folate no.1 1 mg-dha 300 mg capsule (PNV-DHA) guaifenesin 600 mg tablet, 600 mg PO BID PRN congestion #14 09/07/24 09/20/24 Rx extended release 12 hr tabs methylprednisolone 4 mg tablets in 4 mg PO PER PKG DIR 6 days #21 tabs 09/15/2409/20 Rx a dose pack (Medrol (Jose Carlos)) ondansetron HCl 4 mg tablet 4 mg PO Q6H PRN nausea and 09/20/24 09/20/24 Rx vomiting #60 tabs Last Menstrual Period: 07/22/24 Zika: Zika virus screening: Negative : No PFSH PFSH Medical History delivery delivered Polyhydramnios affecting 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) Hirsutism Tobacco use Surgical History Previous section History of right knee surgery Family History Father Kidney disease, Onset Age: 48 Social History adopted: No household members: spouse and children housing: house number of children: 1 service: No current occupational status: employed current occupation: [employer] current occupational exposures/hazards: No pets and animals: Yes ( doing litter) pets and animals: cat(s) and fish history of recent travel: No sexually active: Yes Smoking Status: Current some day smoker Tobacco: How many years used: 12 Electronic Cigarette Use: with nicotine quit status: considering quitting alcohol intake: never substance use type: former substance user Date of last use: 08/07/24 and marijuana well-balanced diet: daily or most days caffeine: Yes Type: coffee Number of servings: 1 eating out: 1-3 times/week during the past year weight has: decreased > 10 lbs what type of physical activity do you participate in: none suraj/oriental orthodox: None seatbelt use: always do you feel safe at home: Yes additional social history: Kenn-Both work at [employer] History 2 Elective abortions Hx Para 1 Spontaneous abortions Hx # Term Pregnancies Ectopic pregnancies Hx # Pregnancies Multiple births # of living children 1 Past Pregnancies Del. Date Name GA/Weeks Outcome Route Bth Weight Infant Gen Labor Lgth Anesthesia Del Locatn Provider FOB 05/18/23 Simon 39 live - full term 6lbs 13 oz Fe male epidural [facility] Delivery Date: 05/18/23 Last Updated by: Faith Solis aod, 9cm sm kw 39 gdm. HPI New OB, LMP 07/22, SARA 04/28/25 Details: ARIANNA KERR is a 28 year old who presents for New OB visit. OB Visit SARA Calculator Estimated Delivery Date Method Current WG Current Estimate 04/28/25 LMP (Certain) 8w 4d Comments: HIV: Urine Culture: Sequential Screen: NIPT Screen: Estimated Due Date: 04/28/25 Initial Weight: Not Recorded Date -???-???-???-???-???-???-???-???-???-???-???-???- EGA Weight BP Urine Prot -???-???-???-???-???-???-???-???-???-???-???-???- Glucose FHR FuHt Pres Dilation -???-???-???-???-???-???-???-???-???-???-???-???- Effaced St Visit Note 09/20/24-???-???-???-???-???-???-???-???-???-???-???-???- 8w 4d 200 lb 132/86 -???-???-???-???-???-???-???-???-???-???-???-???- 0 -???-???-???-???-???-???-???-???-???-???-???-???- JV- CRL measuring 6 weeks 5 days without heart tones. missed diagnosed Menstrual History Last Menstrual Period: 07/22/24 Reported LMP: definite Normal amount/duration: Yes Frequency in days: 28 On hormonal BC at conception: No hCG+: 08/23/24 Antepartum Record Genetic Screening: Congenital Heart Defect: Partner (father hole in heart), Neural Tube Defect: Other, Hemoglobinopathy Or Carrier: Other, Cystic Fibrosis: Other, Chromosome Abnormality: Other, Hakan-Sachs: Other, Hemophilia: Other, Intellectual Disability/Autism: Other, Recurrent Loss/Stillbirth: Other, Other Stru (more content not included)...[facility]02-28-2025 Evaluation note* Diagnosis Onset Date Resolution Status Admit Date Acute laryngitis resolved September 15, 2024 11:06am Current every day vaping resolved September 20, 2024 10:10am Hx of gestational diabetes i n prior , currently resolved September 20, 2024 10:10am LGSIL (low grade squamous intraepithelial dysplasia) resolved September 20, 2024 10:10am Marijuana smoker in remission resolv ed September 20, 2024 10:10am Missed resolved September 10:10am Obesity affecting resolved September 20, 2024 10:10am resolved September 20 10:10am Previous section resolved September 20, 2024 10:10am Missed resolved September 12:19pm Status post dilation and curettage resolved October 06, 2024 3:23pm Incomplete acute November 172024 3:24pm History of recurrent miscarriages acute December 14, 2024 1 1:37am Incomplete acute November 172024 11:37am [facility] Work Phone: 1(596) 881-467002-20-2025 Evaluation note* Diagnosis Onset Date Resolution Status Admit Date Laryngitis resolved September 07, 2024 8:11am Sore throat noneactive August 8:11am Acute laryngitis resolved September 15, 2024 11:06am Current every day vaping resolved September 20, 2024 10:10am Hx of gestational diabetes i n prior , currently resolved September 20, 2024 10:10am LGSIL (low grade squamous intraepithelial dysplasia) resolved September 20, 2024 10:10am Marijuana smoker in remission resolv ed September 20, 2024 10:10am Missed resolved September 10:10am Obesity affecting resolved September 20, 2024 10:10am resolved September 20 10:10am Previous section resolved September 20, 2024 10:10am Missed resolved September 12:19pm Status post dilation and curettage resolved October 06, 2024 3:23pm Incomplete acute November 172024 3:24pm [facility] Work Phone: 1(598) 692-828501-24-2025 Evaluation note* Diagnosis Onset Date Resolution Status Admit Date Encounter for routine gynecological examination noneactive 2024 9:18am Laryngitis acute September 07, 2024 8:11am Sore throat noneactive August 8:11am Acute laryngitis acute September 15, 2024 11:06am Current every day vaping acute September 20, 2024 10:10am Hx of gestational diabetes i n prior , currently acute September 20, 2024 10:10am LGSIL (low grade squamous intraepithelial dysplasia) acute September 20, 2024 10:10am Marijuana smoker in remission acute September 20, 2024 10:10am Missed acute September 10:10am Obesity affecting acute September 20, 2024 10:10am acute September 20 10:10am Previous section acute September 20, 2024 10:10am Missed acute September 12:19pm [facility] Work Phone: 1(601) 117-569511-02-2023 Progress note Author Gilma Bliss [facility] May 20, 2023 8:04am Note Date/Time May 20, 2023 8 :04am [facility] Medical Records Department [address] [place] [address] Progress Note - OBGYN 05/20/23 0803 MR#: [id number] Acct: [id number] Name: ARIANNA KERR Rep #:[id number] : 1995 27 From: Gilma dawson MD PCP: Care Physician,No Primary Status :ADM IN Location: [facility]760-2 Subjective Subjective Patient doing well without complaints. Tolerating PO. Ambulating and voiding without difficulty. feeding well. Denies chest pain, shortness of breath,calf pain/swelling, fevers, chills, lightheadedness. Objective Data Objective Data Vital Signs: Vital Signs Temp Pulse Resp BP Pulse Ox O2 Del Method 97.3 F L 76 16 119/64 98 Room Air 05/20/23 04:18 05/20/23 04:18 05/20/23 04:18 05/20/23 04:18 05/20/23 04:18 05/20/23 04:18 Oxygen Delivery Method Room Air Weight: 226 lb 13.69 oz Body Mass Index (BMI) 37.7 Intake & Output: Intake and Output for Last 24 Hours 05/18/23 05/19/23 05/20/23 23:59 23:59 23:59 Intake Total 4693.63 / 4693.63 2398.33 / 2398.33 Output Total 2925 / 2925 2800 / 2800 Balance 1768.63 / 1768.63 -401.67 / -401.67 Lab / Micro Data 05/19/23 21:16 Labs: Laboratory Results - last 24 hr 05/18/23 19:13: POC Glucose 58 L 05/18/23 19:27: POC Glucose 74 05/19/23 08:08: POC Glucose 73 L 05/19/23 21:16: WBC 11.7 H, RBC 3.58 L, Hgb 10.6 L, Hct 32.6 L, MCV 91.1, MCH 29.6, MCHC 32.5, RDW Std Deviation 46.9 H, RDW Coeff of [place] 13.9, Plt Count 191,MPV 10.4 ROS Constitutional Constitutional: Reports systems reviewed and no addt'l complaints, except as documented Cardiovascular Cardiovascular: Reports systems reviewed and no addt'l complaints, except as documented Respiratory/Chest Respiratory/Chest: Reports systems reviewed and no addt'l complaints, except as documented Gastrointestinal Gastrointestinal: Reports systems reviewed and no addt'l complaints, except as documented Physical Exam Const alert, oriented x3 and no apparent distress HEENT Head and Scalp: atraumatic Resp normal respiratory effort GI soft to palpation and non-tender Inspection: incision intact, healing well and drainage (none) Bimanual Exam - Vag & Uterus: uterus non-tender Uterus Palpation: uterus fundus firm (below Umbilicus) Assessment & Plan (1) delivery delivered: COMMENT: SM LTCS AOD 6 cm and recurrent variables girl Simon GDMA2 PLAN: Plan s/p LTCS PPD # 2 1. routine post care 2. breast feeding- support given 3. rh positive 4. rubella immune 05/20/23 0804 <Electronically signed by Gilma Bliss MD> Cosigner Signature (if applicable): CC: ~ Signed [facility] Work Phone: 1(221) 107-606011-01-2023 Progress note Author Ling Daley [facility] May 19, 2023 7:50am Note Date/Time May 19, 2023 7 :50am [facility] Medical Records Department [address] [place] [id number] Progress Note - OBGYN 05/19/23 0749 MR#: [id number] Acct: [id number] Name: ARIANNA KERR Rep #:[id number] : 1995 27 From: Ling Daley CHIEF WHEELAGE CLERK CHIEF WHEELAGE CLERK-C PCP: Care Physician,No Primary Status :ADM IN Location: [address] Subjective Subjective Patient doing well without complaints. Tolerating PO. Agrawal cath still in place.Feeding well. Denies chest pain, shortness of breath, calf pain/swelling, fevers, chills, lightheadedness. Objective Data Objective Data Vital Signs: Vital Signs Temp Pulse Resp BP Pulse Ox O2 Del Method 99.1 F 72 16 118/72 97 Room Air 05/19/23 02:19 05/19/23 06:15 05/19/23 06:15 05/19/23 06:15 05/19/23 06:15 05/19/23 06:15 Oxygen Delivery Method Room Air Weight: 226 lb 13.69 oz Body Mass Index (BMI) 37.7 Intake & Output: Intake and Output for Last 24 Hours 05/17/23 05/18/23 05/19/23 23:59 23:59 23:59 Intake Total 105 / 105 4693.63 / 4693.63 1398.33 / 1398.33 Output Total 350 / 350 2925 / 2925 1700 / 1700 Balance -245 / -245 1768.63 / 1768.63 -301.67 / -301.67 Lab / Micro Data 05/17/23 19:40 Labs: Laboratory Results - last 24 hr 05/18/23 09:11: POC Glucose 81 05/18/23 13:07: POC Glucose 84 05/18/23 14:03: POC Glucose 75 05/18/23 14:57: POC Glucose 71 L 05/18/23 16:05: POC Glucose 66 L 05/18/23 17:04: POC Glucose 71 L 05/18/23 18:12: POC Glucose 77 05/18/23 20:14: POC Glucose 71 L 05/18/23 21:09: POC Glucose 74 05/18/23 22:43: POC Glucose 73 L 05/19/23 00:45: POC Glucose 96 Physical Exam Const alert and oriented x3 HEENT normocephalic Eyes PERRL Neck full ROM Resp normal respiratory effort GI soft to palpation GI Narrative: FF below U. Dressing dry and intact Palpation: tender other (appropriately) Assessment & Plan (1) delivery delivered: COMMENT: LTCS AOD 6 cm and recurrent variables girl Simon GDMA2 (2) Gestational diabetes: QUALIFIERS: Gestational diabetes mellitus control: oral hypoglycemic-controlled Trimester: third trimester Qualified Code(s): O24.415 - Gestational diabetes mellitus in , controlled by oral hypoglycemic drugs COMMENT: started metformin 500mg 31+5w -2xweekly NST deliver at 39. growth US at 36:59% PLAN: Plan s/p LTCS PPD # 1 1. routine post care 2. breast feeding- support given 3. rh positive 4. rubella immune 5. glucose stable 05/19/23 0750 <Electronically signed by Ling Daley NP CHIEF WHEELAGE CLERK-C> Cosigner Signature (if applicable): CC: ~ Signed [facility] Work Phone: 1(221) 297-854111-01-2023 Discharge summary Author Gilma Bliss [facility] May 19, 2023 12:11am Note Date/Time May 19, 2023 1 2:06am [facility] Medical Records Department [address] [place] [address] Instructions for Home/Discharge Instructions 05/19/23 0006 MR#: [id number] Acct: [id number] Name: ARIANNA KERR Rep #:[id number] : 1995 27 From: Gilma dawson MD PCP: Care Physician,No Primary Status :ADM IN Discharge Instructions Diet Discharge Diet: No restrictions Activity Discharge Activity: May Not Drive (for 2 weeks or while taking narcotic pain medications.), May Shower and May Take a Tub Bath (in 7 days) May shower in (days): 0 May resume sexual activity in: 4-6 weeks Weight Bearing Status: Full weight bearing Lifting Restrictions: 20 pounds Dressing / Incision Call your doctor if your incision/area has: Continuous Slow Oozing, Sudden Increased Bleeding, Increased Pain/ Swelling, Increased Redness and Foul Smelling Discharge Call your doctor if you observe: Fever of 101 or Higher and Using more than 1 pad per hour (for 2 hours) Suture Line Care: Avoid Pulling/Pushing and Avoid Pinching/Bending Cleanse incision/area with: Soap & Water and Keep Dressing Clean & Dry Follow Up Care Please Follow Up With: Gilma Bliss MD When: Call [phone] to make an appointment for an incision check in 1-2 weeks. Test Results: Test results from this visit will be discussed in further detail at your follow- up appointment, if applicable. Discharge Plan Admission Admit Date/Time: 05/17/23 18:54 Attending Provider: Gilma Bliss Primary Care Provider: Care Physician,No Primary Discharge Orders/Prescriptions Prescriptions: New oxycodone-acetaminophen [Percocet] 5-325 mg tablet 1 tab PO Q6H PRN (Reason: pain) 7 Days Qty: 20 0RF naproxen [naproxen] 500 mg tablet 500 mg PO BID PRN PRN (Reason: Pain) Qty: 30 1RF No Action DHA 200 mg capsule 200 mg PO DAILY metformin 500 mg tablet 500 mg PO DAILY Qty: 30 0RF omeprazole 20 mg capsule,delayed release(DR/EC) 20 mg PO DAILY (DME) blood-glucose meter Misc See Rx Instructions .MEDSUPPLY Qty: 1 0RF Rx Instructions: As directed- Test fasting and 2 hours after meals (DME) lancets Misc See Rx Instructions .MEDSUPPLY Qty: 200 8RF Rx Instructions: As directed- fasting & 2 HR post meals (DME) Blood Glucose Test Strip See Rx Instructions .Route Qty: 120 8RF Rx Instructions: As directed- fasting and 2 hours post meals Referrals / Follow Up: Care Physician,No Primary [Primary Care Provider] - Disposition Disposition (needs filled in before D/C Order can be placed): Home, Self Care 05/19/23 0011<Electronically signed by Gilma Bliss MD>Gilma Bliss MD CC: No Primary Care Physician ~ Signed [facility] Work Phone: 1(417) 790-644811-01-2023 Progress note Author Arianna Copeland [facility] May 18, 2023 11:06pm Note Date/Time May 18, 2023 1 0:56pm [facility] Medical Records Department [address] [place] [address] Progress Note 05/18/23 2249 MR#: [id number] Acct: [id number] Name: ARIANNA KERR DAYAN Rep #:[id number] : 1995 27 From: Arianna Copeland CNM PCP: Care Physician,No Primary Status :ADM IN Location: [place] [address] Progress Note comfortable with epidural current tracing: FHT: 135 Moderate variability reactive category II tracing Callaway: 3-5 minute Contractions Membranes: ruptured SVE: /1 reviewed tracing abnormalities since last note: recurrent variables and occasional prolonged decelerations. Pitocin was turned off, IV fluid bolus given, patient to hands and knees, amnioinfusion started. Dr Bliss contacted and she reviewed strip from home. improvement after starting amnioinfusion but she is coming in to evaluate. A/P: Continue with position changes Titrate pitocin per protocol Epidural per anesthesia PCN for GBS prophylaxis Anticipate vs P C/S Dr Bliss aware of plan and agrees with plan of care Assessment & Plan Assessment/Plan (1) Encounter for induction of labor: (2) Tobacco use: (3) Gestational diabetes: QUALIFIERS: Gestational diabetes mellitus control: oral hypoglycemic-controlled Trimester: third trimester Qualified Code(s): O24.415 - Gestational diabetes mellitus in , controlled by oral hypoglycemic drugs (4) LGSIL (low grade squamous intraepithelial dysplasia): (5) Polyhydramnios affecting : (6) Positive GBS test: (7) Non-reactive NST (non-stress test): (8) Substance use: (9) Supervision of high risk , antepartum: (10) : QUALIFIERS: Weeks of gestation: 38 weeks Qualified Code(s): Z3A.38 - 38 weeks gestation of Multi Select Codes Urinary/Genital Urinary/Genital CPT Codes: No Charge 05/18/236 <Electronically signed by Arianna Copeland CNM> Arianna Copeland CNM Cosigner Signature (if applicable): CC: ~ Signed [facility] Work Phone: 1(396) 973-234011-01-2023 Procedure [facility] 05-18-2023 Progress note Author Arianna Copeland [facility] May 18, 2023 3:55pm Note Date/Time May 18, 2023 3 :55pm [facility] Medical Records Department [address] [place] [address] Progress Note 05/18/23 1552 MR#: [id number] Acct: [id number] Name: USHAARIANNA Rep #:[id number] : 1995 27 From: Arianna Copeland CNM PCP: Care Physician,No Primary Status :ADM IN Location: [place] [address] Progress Note Coping well with contractions [comfortable with epidural] current tracing: FHT: 140 Moderate variability reactive prolonged decelerations that recovered after urinary cath, position changes, and placement of internal monitors, category II tracing. Overall reassuring Callaway: 2 minute Contractions Membranes: ruptured SVE:/-2 reviewed tracing abnormalities since last note: A/P: Continue with position changes Titrate pitocin per protocol Epidural per anesthesia PCN for GBS prophylaxis Anticipate Dr Bliss aware of plan and agrees with plan of care Assessment & Plan Assessment/Plan (1) Encounter for induction of labor: (2) Tobacco use: (3) LGSIL (low grade squamous intraepithelial dysplasia): (4) Gestational diabetes: QUALIFIERS: Gestational diabetes mellitus control: oral hypoglycemic-controlled Trimester: third trimester Qualified Code(s): O24.415 - Gestational diabetes mellitus in , controlled by oral hypoglycemic drugs (5) Polyhydramnios affecting : (6) Positive GBS test: (7) Non-reactive NST (non-stress test): (8) Substance use: (9) Supervision of high risk , antepartum: (10) : QUALIFIERS: Weeks of gestation: 38 weeks Qualified Code(s): Z3A.38 - 38 weeks gestation of Multi Select Codes Urinary/Genital Urinary/Genital CPT Codes: No Charge 05/18/23 1555 <Electronically signed by Arianna Copeland CNM> Arianna Copeland CNM Cosigner Signature (if applicable): CC: ~ Signed [facility] Work Phone: 1(421) 280-306910-31-2023 Progress note Author Arianna Copeland [facility] May 18, 2023 11:42am Note Date/Time May 18, 2023 1 1:41am [facility] Medical Records Department [address] [place] [address] Progress Note 05/18/23 1138 MR#: [id number] Acct: [id number] Name: USHAARIANNA DAYAN Rep #:[id number] : 1995 27 From: Arianna Copeland CNM PCP: Care Physician,No Primary Status :ADM IN Location: [place] [address] Progress Note Coping well with contractions recommended epidural if desired prior to AROM current tracing: FHT: 135 Moderate variability reactive no decelerations category I tracing Callaway: 1.5-30 Contractions Membranes: intact SVE: 7/70/-2 A/P: Continue with position changes Titrate pitocin per protocol Requested epidural per anesthesia, bolus started Plan AROM once comfortable with epidural PCN for GBS prophylaxis Anticipate Dr Bliss aware of plan and agrees with plan of care Assessment & Plan Assessment/Plan (1) Encounter for induction of labor: (2) Gestational diabetes: QUALIFIERS: Gestational diabetes mellitus control: oral hypoglycemic-controlled Trimester: third trimester Qualified Code(s): O24.415 - Gestational diabetes mellitus in , controlled by oral hypoglycemic drugs (3) Polyhydramnios affecting : (4) Positive GBS test: (5) Non-reactive NST (non-stress test): (6) Substance use: (7) Supervision of high risk , antepartum: (8) : QUALIFIERS: Weeks of gestation: 38 weeks Qualified Code(s): Z3A.38 - 38 weeks gestation of Multi Select Codes Urinary/Genital Urinary/Genital CPT Codes: No Charge 05/18/23 1142 <Electronically signed by Arianna Copeland CNM> Arianna Copeland CNM Cosigner Signature (if applicable): CC: ~ Signed [facility] Work Phone: 1(251) 586-844310-31-2023 History and physical note Author Arianna Copeland [facility] May 18, 2023 8:17am Note Date/Time May 18, 2023 8 :18am [facility] Medical Records Department [address] [place] [address] H&P Exam - HOME CARE GIVER 05/18/23 0812 MR#: [id number] Acct: [id number] Name: ARIANNA KERR Rep #:[id number] : 1995 27 From: Arianna Copeland CNM PCP: Care Physician,No Primary Status :ADM IN Location: [place] [address] HPI - General General Date of Admission: 05/17/23 Date of Service: 05/17/23 HPI Narrative ARIANNA KERR, is a 27 F at 39.1 weeks who presents for IOL for gestational diabetes. 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 Gestational diabetes Hirsutism LGSIL (low grade squamous intraepithelial dysplasia) Polyhydramnios affecting Tobacco use Home Medications docosahexaenoic acid 200 mg capsule ( DHA) 200 mg PO DAILY 10/16/22 [History Last Taken 05/17/23 07:00 200 mg] blood sugar diagnostic (Blood Glucose Test strips) #120 ea 03/05/23 [Rx Last Taken Unknown] blood-glucose meter #1 ea 03/05/23 [Rx Last Taken Unknown] lancets #200 ea 03/05/23 [Rx Last Taken Unknown] metformin 500 mg tablet 500 mg PO DAILY gestational diabetes #30 tabs 04/23/23 [Rx Last Taken 05/16/23 19:00 500 mg] omeprazole 20 mg capsule,delayed release 20 mg PO DAILY indigestion 05/17/23 [History Last Taken 05/17/23 07:54 20 mg] Allergy/AdvReac Type Severity Reaction Status Date / Time No Known Allergies Allergy Verified 05/17/23 19:48 Surgical History History of right knee surgery Social History adopted: No household members: spouse housing: house current occupational status: employed current occupation: [employer] pets and animals: Yes ( doing litter) pets and animals: cat(s) and fish history of recent travel: No sexually active: Yes Smoking Status: Current some day smoker alcohol intake: never substance use type: marijuana caffeine: Yes seatbelt use: always do you feel safe at home: Yes additional social history: [employer] work at [employer] History 1 Elective abortions Hx Para 0 Spontaneous abortions Hx # Term Pregnancies Ectopic pregnancies Hx # Pregnancies Multiple births # of living children Visit Details Expected Delivery Route/Plan Labor Preferences- CB/BF classes: encouraged labor support person: Kenn labor intervention preferences: none pain management options preferred: epidural cut cord/dad catch: yes : yes PP control planned: nfp discussed possible routes of delivery and associated risks: [] special requests: [] Plans Covid status: discussed Flu vaccine: discussed Tdap vaccine: declined Rhogam: na LARC form signed: completed. movement and labor precautions reviewed. Problem list reviewed and updated with the most current plan of care details and appropriate orders placed. Relevant counseling for the gestational age provided. Continue routine care and follow up unless otherwise noted in visit notes/problem list details OB Flowsheet Initial Weight: Not Recorded Date -?-?-?-?-?-?-?-?-?-?-?-?- EGA Weight BP Urine Prot -?-?-?-?-?-?-?-?-?-?-?-?- Glucose FHR FuHt Pres Dilation -?-?-?-?-?-?-?-?-?-?-?-?- Effaced St Visit Note 10/30/22 -?-?-?-?-?-?-?-?-?-?-?-?- 10w 5d 214 lb 132/88 -?-?-?-?-?-?-?-?-?-?-?-?- 180 -?-?-?-?-?-?-?-?-?-?-?-?- JV- single live IUP measuring 10 weeks 5 days (7 days off from LMP) desires NIPT 11/26/22 -?-?-?-?-?-?-?-?-?-?-?-?- 14w 4d 215 lb 127/80 Negative -?-?-?-?-?-?-?-?-?-?-?-?- Negative 165 -?-?-?-?-?-?-?-?-?-?-?-?- LC- doing well. labs normal. no vb/cramping. anatomy ordered. 01/04/23 -?-?-?-?-?-?-?--?-?-?-?-?- 20w 1d 217 lb 6 oz 122/81 Nega tive -?-?-?-?-?-?-?-?-?-?-?-?- Negative 150 -?-?-?-?-?-?-?-?-?-?-?-?- SM- no vb lof cr amping 02/04/23 -?-?-?-?-?-?-?-?-?-?-?-?- 24w 4d 223 lb 119/75 1+ -?-?-?-?-?-?-?-?-?-?-?-?- Negative 150 -?-?-?-?-?-?-?-?-?-?-?-?- LC- no vb/ctx/lo f. 28 week labs ordered. no concerns. 03/05/23 -?-?-?-?-?-?-?-?-?-?-?-?- 28w 5d 225 lb 8 oz 111/72 Nega tive -?-?-?-?-?-?-?-?-?-?-?-?- Negative 155 -?-?-?-?-?-?-?-?-?-?-?-?- JeromeV- pt was told today that she has GDM. instructions on monitoring given. rto in one week with glucose log. 03/19/23 -?--?-?-?-?-?-?-?-?-?-?-?- 30w 5d 225 lb 4 oz 128/80 Nega tive -?-?-?-?-?-?-?-?-?-?-?-?- Negative 140 30 -?-?-?-?-?-?-?-?-?-?-?-?- LC- x3 elevated fasting glucose. awaiting nutrition consult. diet reviewed. if fastings continue to be elevated in 1 week to rto for medication management. 03/26/23 -?-?-?-?-?-?-?-?-?-?-?-?- 31w 5d Negative -?-?-?-?-?-?-?-?-?-?-?-?- Negative 140 -?-?-?-?-?-?-?-?-?-?-?-?- LC- here to disc uss glucose. 10 fasting above 95. consulted with PRAVEENA agrees to add Metformin 500mg. 03/29/23 -?-?-?-?-?-?-?-?-?-?-?-?- 32w 1d 223 lb 112/69 Trace -?-?-?-?-?-?-?-?-?-?-?-?- Negative 140 32 -?-?-?-?-?-?-?-?-?-?-?-?- LC- no vb/ctx/lo f. good fm. fastings all under 95. pp elevated x1 after pasta lunch. has injection operator appt tomorrow. reviewed alternatives. nst reactive today. 04/02/23 -?-?-?-?-?-?-?-?-?-?-?-?- 32w 5d 221 lb 4 oz 123/80 -?-?-?-?-?-?-?-?-?-?-?-?- 130 -?-?-?-?-?-?-?-?-?-?-?-?- LC- no vb/ctx/lo f. good fm. all fasting/pp under parameters since lead custodian counseling. 04/06/23 -?-?-?-?-?-?-?-?-?-?-?-?- 33w 2d 223 lb 8 oz 132/83 Trac e -?-?-?-?-?-?-?-?-?-?-?-?- Negative 140 -?-?-?-?-?-?-?-?-?-?-?-?- -NST only reac tive. Reviewed glucose readings and all well controlled 04/09/23 -?-?-?-?-?-?-?-?-?-?-?-?- 33w 5d 223 lb 132/83 Negative -?-?-?-?-?-?-?-?-?-?-?-?- Negative 140 -?-?-?-?-?-?-?-?-?-?-?-?- SM- BS well cont rolled, NST reactive, US at 36 weeks 04/13/23 -?-?-?-?-?-?-?-?-?-?-?-?- 34w 2d 221 lb 8 oz 117/76 -?-?-?-?-?-?-?-?-?-?-?-?- 140 -?-?-?-?-?-?-?-?-?-?-?-?- SM- no vb lof go od fm no regular ctx BS controlled 04/19/23 -?-?-?-?-?-?-?-?-?-?-?-?- 35w 1d 220 lb 4 oz 130/74 Nega tive -?-?-?-?-?-?-?-?-?-?-?-?- Negative 140 -?-?-?-?-?-?-?-?-?-?-?-?- MH-NST only reac tive. Will sched 36 wk growth US next week 04/23/23 -?-?-?-?-?-?-?-?-?-?-?-?- 35w 5d 221 lb 120/64 Negative -?-?-?-?-?-?-?-?-?-?-?-?- Negative 135 -?-?-?-?-?-?-?-?-?-?-?-?- KW--NST only. re active 04/30/23 -?-?-?-?-?-?-?-?-?-?-?-?- 36w 5d 223 lb 8 oz 110/68 Nega tive -?-?-?-?-?-?-?-?-?-?-?-?- Negative -?-?-?-?-?-?-?-?-?-?-?-?- non reactive nst to l and d for extended monitoring and bpp 05/04/23 -?-?-?-?-?-?-?-?-?-?-?-?- 37w 2d 223 lb 118/80 Trace -?-?-?-?-?-?-?-?-?-?-?-?- Negative 140 -?-?-?-?-?-?-?--?-?-?-?-?- JV- reactive NST today. no complaints. plan for 39 week IOL. will perform cervical exam on wednesday when returns. Plan for Wednesday the or wednesday the for cervical ripening. 05/07/23 -?-?-?-?-?-?-?-?-?-?-?-?- 37w 5d 222 lb 6 oz 130/83 Nega tive -?-?-?-?-?-?-?-?-?-?-?-?- Negative 130 37 Cephalic 0 -?-?-?-?-?-?-?-?-?-?-?-?- 50 -3 JV- reacti ve nst. plan is for 39 week IOL, cervical ripening will be needed wednesday05/11/23 -?-?-?-?-?-?-?-?-?-?-?-?- 38w 2d 222 lb 8 oz 132/87 Nega tive -?-?-?-?-?-?-?-?-?-?-?-?- Negative 130 -?-?-?-?-?-?-?-?-?-?-?-?- SM no vb lof goo d fm no ergular ctx bs controlled 05/14/23 -?-?-?-?-?-?-?-?-?-?-?-?- 38w 5d 224 lb 126/85 Negative -?-?-?-?-?-?-?-?-?-?-?-?- Negative 130 -?-?-?-?-?-?-?-?-?-?-?-?- JV- nst reactive . plan for IOL wednesday night NST FHR Rate Baby A Baseline: 125 Variability:: Moderate Accelerations:: 15 x 15 Decelerations:: None NST Reactive:: Yes FHR Category:: Category I Uterine Activity:: irregular ROS Constitutional Constitutional: Denies change in weight, fatigue, fever(s), headache(s), poor appetite or weakness Eyes Eyes: Denies blurry vision, change in vision, floaters, seeing flashes or spots in vision ENT HEENT: Denies dizziness, headache(s), loss taste/smell or sore throat Cardiovascular Cardiovascular: Denies chest pain, dizziness, dyspnea, irregular heart rhythm, lightheadedness, palpitations or rapid heart rate Respiratory/Chest Respiratory/Chest: Denies change in mental status, chest tightness, cough, dyspnea or breast pain Gastrointestinal Gastrointestinal: Denies anorexia, chewing difficulty, constipation, diarrhea or weight changes Genitourinary Genitourinary: Denies difficulty urinating, dysuria, flank pain, genital pain, urinary frequency or urinary urgency Musculoskeletal Musculoskeletal: Denies back pain, difficulty walking, extremity pain, joint pain, muscle cramps or muscle weakness Integumentary Integumentary: Denies lesions or unusual bruising Neurologic Neurologic: Denies abnormal movements, abnormal speech, dizziness, numbness, seizure-like activity, syncope or weakness Psychiatric Psychiatric: Denies behavioral changes, change in appetite, confusion, depression, homicidal ideation, suicidal ideation or suicidal thoughts Endocrine Endocrinology: Denies excessive sweating, polydipsia or polyuria Hematologic/Lymphatic Hematologic/Lymphatic: Denies anemia Allergic/Immunologic Allergic/Immunologic: Denies itchy eyes, lip swelling, throat swelling, tongue swelling or wheezing Vital Signs Vital Signs Vital Signs: 05/17/23 19:35 05/17/23 19:35 05/17/23 19:36 Temperature Temperature Source Pulse Rate 93 Blood Pressure 152/83 H 137/73 H BP Systolic 152 137 BP Diastolic 83 73 Pulse Ox 05/17/23 19:36 05/17/23 19:35 05/17/23 19:35 Temperature Temperature Source Temporal Pulse Rate 105 H Blood Pressure BP Systolic BP Diastolic Pulse Ox 98 05/17/23 19:35 05/17/23 23:38 05/17/23 23:38 Temperature 98.1 F Temperature Source Pulse Rate 81 Blood Pressure 117/62 BP Systolic 117 BP Diastolic 62 Pulse Ox 05/17/23 23:38 05/17/23 23:38 05/17/23 23:38 Temperature 97.7 F L Temperature Source Temporal Pulse Rate Blood Pressure BP Systolic BP Diastolic Pulse Ox 98 05/18/23 03:37 05/18/23 03:37 05/18/23 03:36 Temperature Temperature Source Temporal Pulse Rate 70 Blood Pressure 108/62 BP Systolic 108 BP Diastolic 62 Pulse Ox 05/18/23 03:36 05/18/23 03:36 05/18/23 03:36 Temperature 97.7 F L Temperature Source Temporal Pulse Rate Blood Pressure BP Systolic BP Diastolic Pulse Ox 98 05/18/23 03:36 05/18/23 08:00 05/18/23 08:00 Temperature 97.7 F L Temperature Source Pulse Rate 77 Blood Pressure 121/72 H BP Systolic 121 BP Diastolic 72 Pulse Ox Weight Weight: 226 lb 13.69 oz Body Mass Index (BMI) 37.7 Physical Exam Const alert, oriented x3 and no apparent distress General Appearance: cooperative Orientation / Consciousness: awake HEENT normocephalic Neck full ROM Lymph Lymphatic: no lymphadenopathy noted Chest inspection of chest normal Resp normal respiratory effort and normal air movement Effort and Inspection: able to speak in complete sentences and symmetric chest movement GI soft to palpation and non-tender Inspection: gravid Palpation: soft; Negative for tender external exam normal Back/Spine normal to inspection Extremity normal to inspection and full ROM Skin no rashes or lesions noted Psych mental status grossly normal Appearance: grossly normal Speech: normal speech Labs Labs Labs: Blood Type A POSITIVE Antibody Screen NEGATIVE Hct 38.4 % (37-47) Hgb 12.9 g/dL (12.0-15.0) Pap Smear Negative Obstetrics Ultrasound Syphilis Total Ab Non-reactive Rubella IgG Antibody Reactive (Nonreactive) Hep Bs Antigen Non-Reactive (Nonreactive) Hepatitis C Antibody Non-Reactive (Nonreactive) Chlamydia DNA (LEO) Negative (Negative) N.gonorrhoeae DNA (LEO) Negative (Negative) HIV 1&2 Antibody Non-Reactive (Nonreactive) Glucose 1 Hr 50 gm 182 mg/dL (70-140) H Group B Strep DNA Negative (Negative) Miscellaneous Test Assessment & Plan (1) Tobacco use: COMMENT: cessation encouraged, down to 2 cig/day. (2) LGSIL (low grade squamous intraepithelial dysplasia): COMMENT: repeat 2021 pap 2019 ASCUS HPV positive (3) Gestational diabetes: QUALIFIERS: Gestational diabetes mellitus control: oral hypoglycemic-controlled Trimester: third trimester Qualified Code(s): O24.415 - Gestational diabetes mellitus in , controlled by oral hypoglycemic drugs COMMENT: started metformin 500mg 31+5w -2xweekly NST deliver at 39. growth US at 36:59% (4) Polyhydramnios affecting : COMMENT: CARO 29 on 04/30 (5) Positive GBS test: COMMENT: treat in labor (6) Substance use: COMMENT: THC-early repeat random tox (7) Supervision of high risk , antepartum: COMMENT: PRR SARA 05/30/23, girl, Simon Spouse Kenn (8) : QUALIFIERS: Weeks of gestation: 38 weeks Qualified Code(s): Z3A.38 - 38 weeks gestation of COMMENT: + GBS, NIPT low risk, carrier and afp declined, + tox for THC,nml anatomy (9) Encounter for induction of labor: COMMENT: cytotec, GDM PLAN: Patient presents IOL, plan management for with pitocin/AROM. Pain management: plans epidural. GBS positive. Management of any complications: GDM I have reviewed the [facility] and made any clinically relevant updates. Charges/Coding Multi Select Codes Urinary/Genital Urinary/Genital CPT Codes: No Charge 05/18/23 0817 <Electronically signed by Arianna Copeland CNM> Cosigner Signature (if applicable): CC: ADDI Copeland; No Primary Care Physician~ Signed [facility] Work Phone: Consult note Author Nory Polanco [facility] Note Date/Time September 21, 2024 4:[address] [facility] Medical Records Department [address] [address] Anesthesia Postop Eval I 09/21/24 1454 MR#: [id number] Acct: [id number] Name: ARIANNA KERR Rep #:[id number] : 1995 28 From: Nory borja CRNA PCP: Care Physician,No Primary Status :REG SDC Y Race: UTD Location: [place] [address] Anesthesia: Postop Eval I Current Vital Signs Temperature: 98.8 F Pulse Rate: 96 Blood Pressure: 116/73 Respiratory Rate: 16 Pulse Ox: 96 Oxygen Delivery Method: Room Air Assessment Airway patent: Yes Spontaneous unlabored respirations: Yes Mental status: Awake and Calm nausea: No Vomiting: No Anesthesia Complication: No Fluid Hydration Crystalloid volume administer (ml): 10 Total IV fluid infused: 10 Progress Note Anesthesia document: Postop Eval 1 completed: Yes 09/21/241453 <Electronically signed by Nory chatman CRNA> Date _ Nory Polanco CRNA Cosigner Signature: Date CC: ~ Signed [facility] Work Phone: Evaluation note* Diagnosis Onset Date Resolution Status Dysmenorrhea acute Hirsutism acute Infertility acute LGSIL (low grade squamous intraepithelial dysplasia) acute Tobacco use acute H/O right knee surgery nonea ctive [facility] Work Phone: Evaluation note* Diagnosis Onset Date Resolution Status Infertility acute Encounter for routine gynecological examination noneactive [facility] Work Phone: Evaluation note* Diagnosis Onset Date Resolution Status LGSIL (low grade squamous intraepithelial dysplasia) acute acute Substance use acute Supervision of high risk , antepartum acute Tobacco use acute LGSIL (low grade squamous intraepithelial dysplasia) acute acute Substance use acute Supervision of high risk , antepartum acute Tobacco use acute LGSIL (low grade squamous intraepithelial dysplasia) acute acute Substance use acute Supervision of high risk , antepartum acute Tobacco use acute Gestational diabetes acute LGSIL (low grade squamous intraepithelial dysplasia) acute acute Substance use acute Supervision of high risk , antepartum acute Tobacco use acute [facility] Work Phone: Evaluation note* Diagnosis Onset Date Resolution Status LGSIL (low grade squamous intraepithelial dysplasia) acute acute Substance use acute Supervision of high risk , antepartum acute Tobacco use acute LGSIL (low grade squamous intraepithelial dysplasia) acute acute Substance use acute Supervision of high risk , antepartum acute Tobacco use acute Gestational diabetes acute LGSIL (low grade squamous intraepithelial dysplasia) acute acute Substance use acute Supervision of high risk , antepartum acute Tobacco use acute Gestational diabetes acute LGSIL (low grade squamous intraepithelial dysplasia) acute acute Substance use acute Supervision of high risk , antepartum acute Tobacco use acute Gestational diabetes acute LGSIL (low grade squamous intraepithelial dysplasia) acute acute Substance use acute Supervision of high risk , antepartum acute Tobacco use acute Gestational diabetes acute LGSIL (low grade squamous intraepithelial dysplasia) acute acute Substance use acute Supervision of high risk , antepartum acute Tobacco use acute Gestational diabetes acute LGSIL (low grade squamous intraepithelial dysplasia) acute acute Substance use acute Supervision of high risk , antepartum acute Tobacco use acute Gestational diabetes acute acute Substance use acute Supervision of high risk , antepartum acute Tobacco use acute Gestational diabetes acute LGSIL (low grade squamous intraepithelial dysplasia) acute acute Substance use acute Supervision of high risk , antepartum acute Tobacco use acute Gestational diabetes acute LGSIL (low grade squamous intraepithelial dysplasia) acute acute Substance use acute Supervision of high risk , antepartum acute Tobacco use acute Gestational diabetes acute LGSIL (low grade squamous intraepithelial dysplasia) acute acute Substance use acute Supervision of high risk , antepartum acute Tobacco use acute [facility] Work Phone: Evaluation note* Diagnosis Onset Date Resolution Status LGSIL (low grade squamous intraepithelial dysplasia) acute acute Substance use acute Supervision of high risk , antepartum acute Tobacco use acute LGSIL (low grade squamous intraepithelial dysplasia) acute acute Substance use acute Supervision of high risk , antepartum acute Tobacco use acute Gestational diabetes acute LGSIL (low grade squamous intraepithelial dysplasia) acute acute Substance use acute Supervision of high risk , antepartum acute Tobacco use acute Gestational diabetes acute LGSIL (low grade squamous intraepithelial dysplasia) acute acute Substance use acute Supervision of high risk , antepartum acute Tobacco use acute Gestational diabetes acute LGSIL (low grade squamous intraepithelial dysplasia) acute acute Substance use acute Supervision of high risk , antepartum acute Tobacco use acute Gestational diabetes acute LGSIL (low grade squamous intraepithelial dysplasia) acute acute Substance use acute Supervision of high risk , antepartum acute Tobacco use acute Gestational diabetes acute LGSIL (low grade squamous intraepithelial dysplasia) acute acute Substance use acute Supervision of high risk , antepartum acute Tobacco use acute Gestational diabetes acute acute Substance use acute Supervision of high risk , antepartum acute Tobacco use acute Gestational diabetes acute LGSIL (low grade squamous intraepithelial dysplasia) acute acute Substance use acute Supervision of high risk , antepartum acute Tobacco use acute Gestational diabetes acute LGSIL (low grade squamous intraepithelial dysplasia) acute acute Substance use acute Supervision of high risk , antepartum acute Tobacco use acute Gestational diabetes acute LGSIL (low grade squamous intraepithelial dysplasia) acute acute Substance use acute Supervision of high risk , antepartum acute Tobacco use acute Gestational diabetes acute LGSIL (low grade squamous intraepithelial dysplasia) acute acute Substance use acute Supervision of high risk , antepartum acute Tobacco use acute Gestational diabetes acute LGSIL (low grade squamous intraepithelial dysplasia) acute acute Substance use acute Supervision of high risk , antepartum acute Tobacco use acute Gestational diabetes acute LGSIL (low grade squamous intraepithelial dysplasia) acute Non-reactive NST (non-stress test) acute acute Substance use acute Supervision of high risk , antepartum acute Tobacco use acute Gestational diabetes acute LGSIL (low grade squamous intraepithelial dysplasia) acute Polyhydramnios affecting acute acute Substance use acute Supervision of high risk , antepartum acute Tobacco use acute [facility] Work Phone: Evaluation note* Diagnosis Onset Date Resolution Status LGSIL (low grade squamous intraepithelial dysplasia) acute resolved Substance use resolved Supervision of high risk , antepartum resolved Tobacco use resolved Gestational diabetes acute LGSIL (low grade squamous intraepithelial dysplasia) acute resolved Substance use resolved Supervision of high risk , antepartum resolved Tobacco use resolved Gestational diabetes acute LGSIL (low grade squamous intraepithelial dysplasia) acute resolved Substance use resolved Supervision of high risk , antepartum resolved Tobacco use resolved Gestational diabetes acute LGSIL (low grade squamous intraepithelial dysplasia) acute resolved Substance use resolved Supervision of high risk , antepartum resolved Tobacco use resolved Gestational diabetes acute LGSIL (low grade squamous intraepithelial dysplasia) acute resolved Substance use resolved Supervision of high risk , antepartum resolved Tobacco use resolved Gestational diabetes acute LGSIL (low grade squamous intraepithelial dysplasia) acute resolved Substance use resolved Supervision of high risk , antepartum resolved Tobacco use resolved Gestational diabetes acute resolved Substance use resolved Supervision of high risk , antepartum resolved Tobacco use resolved Gestational diabetes acute LGSIL (low grade squamous intraepithelial dysplasia) acute resolved Substance use resolved Supervision of high risk , antepartum resolved Tobacco use resolved Gestational diabetes acute LGSIL (low grade squamous intraepithelial dysplasia) acute resolved Substance use resolved Supervision of high risk , antepartum resolved Tobacco use resolved Gestational diabetes acute LGSIL (low grade squamous intraepithelial dysplasia) acute resolved Substance use resolved Supervision of high risk , antepartum resolved Tobacco use resolved Gestational diabetes acute LGSIL (low grade squamous intraepithelial dysplasia) acute resolved Substance use resolved Supervision of high risk , antepartum resolved Tobacco use resolved Gestational diabetes acute LGSIL (low grade squamous intraepithelial dysplasia) acute resolved Substance use resolved Supervision of high risk , antepartum resolved Tobacco use resolved Gestational diabetes acute LGSIL (low grade squamous intraepithelial dysplasia) acute Non-reactive NST (non-stress test) resolved resolved Substance use resolved Supervision of high risk , antepartum resolved Tobacco use resolved Gestational diabetes acute LGSIL (low grade squamous intraepithelial dysplasia) acute Polyhydramnios affecting resolved resolved Substance use resolved Supervision of high risk , antepartum resolved Tobacco use resolved Gestational diabetes acute LGSIL (low grade squamous intraepithelial dysplasia) acute Non-reactive NST (non-stress test) resolved Polyhydramnios affecting resolved Positive GBS test resolved resolved Substance use resolved Supervision of high risk , antepartum resolved Tobacco use resolved Gestational diabetes acute LGSIL (low grade squamous intraepithelial dysplasia) acute Non-reactive NST (non-stress test) resolved Polyhydramnios affecting resolved Positive GBS test resolved resolved Substance use resolved Supervision of high risk , antepartum resolved Tobacco use resolved Gestational diabetes acute LGSIL (low grade squamous intraepithelial dysplasia) acute Non-reactive NST (non-stress test) resolved Polyhydramnios affecting resolved Positive GBS test resolved resolved Substance use resolved Supervision of high risk , antepartum resolved Tobacco use resolved Gestational diabetes acute LGSIL (low grade squamous intraepithelial dysplasia) acute Non-reactive NST (non-stress test) resolved Polyhydramnios affecting resolved Positive GBS test resolved resolved Substance use resolved Supervision of high risk , antepartum resolved Tobacco use resolved delivery delivered acute Gestational diabetes acute LGSIL (low grade squamous intraepithelial dysplasia) acute Arrest of dilation, delivered, current hospitalization resolved Encounter for induction of labor resolved Non-reactive NST (non-stress test) resolved Polyhydramnios affecting resolved Positive GBS test resolved resolved Substance use resolved Supervision of high risk , antepartum resolved Tobacco use resolved Variable heart rate decelerations, antepartum resolved [facility] Work Phone: Evaluation note* Diagnosis Onset Date Resolution Status LGSIL (low grade squamous intraepithelial dysplasia) acute resolved Substance use resolved Supervision of high risk , antepartum resolved Tobacco use resolved LGSIL (low grade squamous intraepithelial dysplasia) acute resolved Substance use resolved Supervision of high risk , antepartum resolved Tobacco use resolved LGSIL (low grade squamous intraepithelial dysplasia) acute resolved Substance use resolved Supervision of high risk , antepartum resolved Tobacco use resolved LGSIL (low grade squamous intraepithelial dysplasia) acute resolved Substance use resolved Supervision of high risk , antepartum resolved Tobacco use resolved LGSIL (low grade squamous intraepithelial dysplasia) acute resolved Substance use resolved Supervision of high risk , antepartum resolved Tobacco use resolved resolved Substance use resolved Supervision of high risk , antepartum resolved Tobacco use resolved LGSIL (low grade squamous intraepithelial dysplasia) acute resolved Substance use resolved Supervision of high risk , antepartum resolved Tobacco use resolved LGSIL (low grade squamous intraepithelial dysplasia) acute resolved Substance use resolved Supervision of high risk , antepartum resolved Tobacco use resolved LGSIL (low grade squamous intraepithelial dysplasia) acute resolved Substance use resolved Supervision of high risk , antepartum resolved Tobacco use resolved LGSIL (low grade squamous intraepithelial dysplasia) acute resolved Substance use resolved Supervision of high risk , antepartum resolved Tobacco use resolved LGSIL (low grade squamous intraepithelial dysplasia) acute resolved Substance use resolved Supervision of high risk , antepartum resolved Tobacco use resolved LGSIL (low grade squamous intraepithelial dysplasia) acute Non-reactive NST (non-stress test) resolved resolved Substance use resolved Supervision of high risk , antepartum resolved Tobacco use resolved LGSIL (low grade squamous intraepithelial dysplasia) acute Polyhydramnios affecting resolved resolved Substance use resolved Supervision of high risk , antepartum resolved Tobacco use resolved LGSIL (low grade squamous intraepithelial dysplasia) acute Non-reactive NST (non-stress test) resolved Polyhydramnios affecting resolved Positive GBS test resolved resolved Substance use resolved Supervision of high risk , antepartum resolved Tobacco use resolved LGSIL (low grade squamous intraepithelial dysplasia) acute Non-reactive NST (non-stress test) resolved Polyhydramnios affecting resolved Positive GBS test resolved resolved Substance use resolved Supervision of high risk , antepartum resolved Tobacco use resolved LGSIL (low grade squamous intraepithelial dysplasia) acute Non-reactive NST (non-stress test) resolved Polyhydramnios affecting resolved Positive GBS test resolved resolved Substance use resolved Supervision of high risk , antepartum resolved Tobacco use resolved LGSIL (low grade squamous intraepithelial dysplasia) acute Non-reactive NST (non-stress test) resolved Polyhydramnios affecting resolved Positive GBS test resolved resolved Substance use resolved Supervision of high risk , antepartum resolved Tobacco use resolved delivery delivered acute LGSIL (low grade squamous intraepithelial dysplasia) acute Arrest of dilation, delivere d, current hospitalization resolved Encounter for induction of labor resolved Non-reactive NST (non-stress test) resolved Polyhydramnios affecting resolved Positive GBS test resolved resolved Substance use resolved Supervision of high risk , antepartum resolved Tobacco use resolved Variable heart rate decelerations, antepartum resolved delivery delivered acute History of gestational diabetes acute Postop check noneactive Routine Follow-Up noneactive [facility] Work Phone: Progress note Author Arianna Copeland [facility] April 30, 2023 3:39pm Note Date/Time April 30, 2023 3 :39pm [facility] Medical Records Department [address] [place] [address] OB Triage Progress Note 04/30/23 1536 MR#: [id number] Acct: [id number] Name: ARIANNA KERR Rep #:[id number] : 1995 27 From: Arianna Copeland CNM PCP: Care Physician,No Primary Status :REG CLI Y DOS: [id number] Progress Notes Date of Service: 04/30/23 Progress Note: Patient presents for triage evaluation secondary to non reactive NST in office FHT: 125 Moderate variability reactive no decelerations category I tracing [place]: mild Contractions vs irritability Assessment and plan: BPP 02/23, Reactive NST, reassuring maternal and statuspatient discharged to home to follow-up in the office. See problem list detailsfor additional plan information. Laboratory Studies: Laboratory Tests 04/30/23 Range/Units 13:50 Group B Strep DNA Negative (Negative) Specimen Comment Not Reportable Charges/Coding Multi Select Codes Urinary/Genital Urinary/Genital CPT Codes: 88963-25 non-stress test Interp Assessment & Plan (1) Polyhydramnios affecting : COMMENT: CARO 29 on 04/30 (2) Gestational diabetes: QUALIFIERS: Gestational diabetes mellitus control: oral hypoglycemic-controlled Trimester: third trimester Qualified Code(s): O24.415 - Gestational diabetes mellitus in , controlled by oral hypoglycemic drugs COMMENT: started metformin 500mg 31+5w -2xweekly NST deliver at 39. growth US at 36:59% (3) Substance use: COMMENT: THC-early repeat random tox (4) Supervision of high risk , antepartum: COMMENT: PRR SARA 05/30/23, girl, Simon Spouse Kenn (5) : QUALIFIERS: Weeks of gestation: 36 weeks Qualified Code(s): Z3A.36 - 36 weeks gestation of COMMENT: Neg GBS, NIPT low risk, carrier and afp declined, + tox for THC,nml anatomy (6) LGSIL (low grade squamous intraepithelial dysplasia): COMMENT: repeat 2021 pap 2020 ASCUS HPV positive (7) Tobacco use: COMMENT: cessation encouraged, down to 2 cig/day. 04/30/23 1539 <Electronically signed by Arianna gutierrez CNM> Date _ Arianna Copeland CNM Cosigner Signature (if applicable): Date CC: CNM Arianna Min; No Primary Care Physician ~ Signed [facility] Work Phone: Reason for referral (narrative)No reason for referral information availableWSelect Medical [facility] Work Phone: Chief Complaint and Reason for Visit Chief Complaint FERTILITY CONSULT Reason for Visit Dysmenorrhea Hirsutism Infertility LGSIL (low grade squamous intraepithelial dysplasia) Tobacco use H/O right knee surgery Chief Complaint FERTILITY CONSULT FEMALE INFERTILITY Reason for Visit Dysmenorrhea Hirsutism Infertility LGSIL (low grade squamous intraepithelial dysplasia) Tobacco use H/O right knee surgery Chief Complaint 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) Reason for Visit Infertility Encounter for routine gynecological examination Chief Complaint 14 WK OB 20 WK OB 24 WK OB E-ORDER 28 WK OB/GLUCOSE Reason for Visit LGSIL (low grade squ amous intraepithelial dysplasia) Substance use Supervision of high risk , antepartum Tobacco use LGSIL (low grade squamous intraepithelial dysplasia) Substance use Supervision of high risk , antepartum Tobacco use LGSIL (low grade squamous intraepithelial dysplasia) Substance use Supervision of high risk , antepartum Tobacco use Gestational diabetes LGSIL (low grade squamous intraepithelial dysplasia) Substance use Supervision of high risk , antepartum Tobacco use Chief Complaint 20 WK OB 24 WK OB E-ORDER 28 WK OB/GLUCOSE 30 WK OB 31 WK OB, pt blood sugar work in 32 WK OB/NST/BLOODSUGAR 32 WK OB/NST NST GESTATIONAL DIABETES NST NST 34 WK OB/NST Reason for Visit LGSIL (low grade squ amous intraepithelial dysplasia) Substance use Supervision of high risk , antepartum Tobacco use LGSIL (low grade squamous intraepithelial dysplasia) Substance use Supervision of high risk , antepartum Tobacco use Gestational diabetes LGSIL (low grade squamous intraepithelial dysplasia) Substance use Supervision of high risk , antepartum Tobacco use Gestational diabetes LGSIL (low grade squamous intraepithelial dysplasia) Substance use Supervision of high risk , antepartum Tobacco use Gestational diabetes LGSIL (low grade squamous intraepithelial dysplasia) Substance use Supervision of high risk , antepartum Tobacco use Gestational diabetes LGSIL (low grade squamous intraepithelial dysplasia) Substance use Supervision of high risk , antepartum Tobacco use Gestational diabetes LGSIL (low grade squamous intraepithelial dysplasia) Substance use Supervision of high risk , antepartum Tobacco use Gestational diabetes Substance use Supervision of high risk , antepartum Tobacco use Gestational diabetes LGSIL (low grade squamous intraepithelial dysplasia) Substance use Supervision of high risk , antepartum Tobacco use Gestational diabetes LGSIL (low grade squamous intraepithelial dysplasia) Substance use Supervision of high risk , antepartum Tobacco use Gestational diabetes LGSIL (low grade squamous intraepithelial dysplasia) Substance use Supervision of high risk , antepartum Tobacco use Chief Complaint 20 WK OB 24 WK OB E-ORDER 28 WK OB/GLUCOSE 30 WK OB 31 WK OB, pt blood sugar work in 32 WK OB/NST/BLOODSUGAR 32 WK OB/NST NST GESTATIONAL DIABETES NST NST 34 WK OB/NST NST NST NST GEST DIABETES 36 WK OB/NST NST NST Reason for Visit LGSIL (low grade squ amous intraepithelial dysplasia) Substance use Supervision of high risk , antepartum Tobacco use LGSIL (low grade squamous intraepithelial dysplasia) Substance use Supervision of high risk , antepartum Tobacco use Gestational diabetes LGSIL (low grade squamous intraepithelial dysplasia) Substance use Supervision of high risk , antepartum Tobacco use Gestational diabetes LGSIL (low grade squamous intraepithelial dysplasia) Substance use Supervision of high risk , antepartum Tobacco use Gestational diabetes LGSIL (low grade squamous intraepithelial dysplasia) Substance use Supervision of high risk , antepartum Tobacco use Gestational diabetes LGSIL (low grade squamous intraepithelial dysplasia) Substance use Supervision of high risk , antepartum Tobacco use Gestational diabetes LGSIL (low grade squamous intraepithelial dysplasia) Substance use Supervision of high risk , antepartum Tobacco use Gestational diabetes Substance use Supervision of high risk , antepartum Tobacco use Gestational diabetes LGSIL (low grade squamous intraepithelial dysplasia) Substance use Supervision of high risk , antepartum Tobacco use Gestational diabetes LGSIL (low grade squamous intraepithelial dysplasia) Substance use Supervision of high risk , antepartum Tobacco use Gestational diabetes LGSIL (low grade squamous intraepithelial dysplasia) Substance use Supervision of high risk , antepartum Tobacco use Gestational diabetes LGSIL (low grade squamous intraepithelial dysplasia) Substance use Supervision of high risk , antepartum Tobacco use Gestational diabetes LGSIL (low grade squamous intraepithelial dysplasia) Substance use Supervision of high risk , antepartum Tobacco use Gestational diabetes LGSIL (low grade squamous intraepithelial dysplasia) Non-reactive NST (non-stress test) Substance use Supervision of high risk , antepartum Tobacco use Gestational diabetes LGSIL (low grade squamous intraepithelial dysplasia) Polyhydramnios affecting Substance use Supervision of high risk , antepartum Tobacco use Chief Complaint 24 WK OB E-ORDER 28 WK OB/GLUCOSE 30 WK OB 31 WK OB, pt blood sugar work in 32 WK OB/NST/BLOODSUGAR 32 WK OB/NST NST GESTATIONAL DIABETES NST NST 34 WK OB/NST NST NST NST GEST DIABETES 36 WK OB/NST NST NST 37 WK NST 37 WK OB/NST 38 WK OB 39 WK OB/NST INDUCTION Reason for Visit LGSIL (low grade squ amous intraepithelial dysplasia) Substance use Supervision of high risk , antepartum Tobacco use Gestational diabetes LGSIL (low grade squamous intraepithelial dysplasia) Substance use Supervision of high risk , antepartum Tobacco use Gestational diabetes LGSIL (low grade squamous intraepithelial dysplasia) Substance use Supervision of high risk , antepartum Tobacco use Gestational diabetes LGSIL (low grade squamous intraepithelial dysplasia) Substance use Supervision of high risk , antepartum Tobacco use Gestational diabetes LGSIL (low grade squamous intraepithelial dysplasia) Substance use Supervision of high risk , antepartum Tobacco use Gestational diabetes LGSIL (low grade squamous intraepithelial dysplasia) Substance use Supervision of high risk , antepartum Tobacco use Gestational diabetes Substance use Supervision of high risk , antepartum Tobacco use Gestational diabetes LGSIL (low grade squamous intraepithelial dysplasia) Substance use Supervision of high risk , antepartum Tobacco use Gestational diabetes LGSIL (low grade squamous intraepithelial dysplasia) Substance use Supervision of high risk , antepartum Tobacco use Gestational diabetes LGSIL (low grade squamous intraepithelial dysplasia) Substance use Supervision of high risk , antepartum Tobacco use Gestational diabetes LGSIL (low grade squamous intraepithelial dysplasia) Substance use Supervision of high risk , antepartum Tobacco use Gestational diabetes LGSIL (low grade squamous intraepithelial dysplasia) Substance use Supervision of high risk , antepartum Tobacco use Gestational diabetes LGSIL (low grade squamous intraepithelial dysplasia) Non-reactive NST (non-stress test) Substance use Supervision of high risk , antepartum Tobacco use Gestational diabetes LGSIL (low grade squamous intraepithelial dysplasia) Polyhydramnios affecting Substance use Supervision of high risk , antepartum Tobacco use Gestational diabetes LGSIL (low grade squamous intraepithelial dysplasia) Non-reactive NST (non-stress test) Polyhydramnios affecting Positive GBS test Substance use Supervision of high risk , antepartum Tobacco use Gestational diabetes LGSIL (low grade squamous intraepithelial dysplasia) Non-reactive NST (non-stress test) Polyhydramnios affecting Positive GBS test Substance use Supervision of high risk , antepartum Tobacco use Gestational diabetes LGSIL (low grade squamous intraepithelial dysplasia) Non-reactive NST (non-stress test) Polyhydramnios affecting Positive GBS test Substance use Supervision of high risk , antepartum Tobacco use Gestational diabetes LGSIL (low grade squamous intraepithelial dysplasia) Non-reactive NST (non-stress test) Polyhydramnios affecting Positive GBS test Substance use Supervision of high risk , antepartum Tobacco use delivery delivered Gestational diabetes LGSIL (low grade squamous intraepithelial dysplasia) Arrest of dilation, delivered, current hospitalization Encounter for induction of labor Non-reactive NST (non-stress test) Polyhydramnios affecting Positive GBS test Substance use Supervision of high risk , antepartum Tobacco use Variable heart rate decelerations, antepartum Chief Complaint E-ORDER 28 WK OB/GLUCOSE 30 WK OB 31 WK OB, pt blood sugar work in 32 WK OB/NST/BLOODSUGAR 32 WK OB/NST NST GESTATIONAL DIABETES NST NST 34 WK OB/NST NST NST NST GEST DIABETES 36 WK OB/NST NST NST 37 WK NST 37 WK OB/NST 38 WK OB 39 WK OB/NST INDUCTION 2 WK C/S CHECK visit (obstetrics) Reason for Visit LGSIL (low grade squ amous intraepithelial dysplasia) Substance use Supervision of high risk , antepartum Tobacco use LGSIL (low grade squamous intraepithelial dysplasia) Substance use Supervision of high risk , antepartum Tobacco use LGSIL (low grade squamous intraepithelial dysplasia) Substance use Supervision of high risk , antepartum Tobacco use LGSIL (low grade squamous intraepithelial dysplasia) Substance use Supervision of high risk , antepartum Tobacco use LGSIL (low grade squamous intraepithelial dysplasia) Substance use Supervision of high risk , antepartum Tobacco use Substance use Supervision of high risk , antepartum Tobacco use LGSIL (low grade squamous intraepithelial dysplasia) Substance use Supervision of high risk , antepartum Tobacco use LGSIL (low grade squamous intraepithelial dysplasia) Substance use Supervision of high risk , antepartum Tobacco use LGSIL (low grade squamous intraepithelial dysplasia) Substance use Supervision of high risk , antepartum Tobacco use LGSIL (low grade squamous intraepithelial dysplasia) Substance use Supervision of high risk , antepartum Tobacco use LGSIL (low grade squamous intraepithelial dysplasia) Substance use Supervision of high risk , antepartum Tobacco use LGSIL (low grade squamous intraepithelial dysplasia) Non-reactive NST (non-stress test) Substance use Supervision of high risk , antepartum Tobacco use LGSIL (low grade squamous intraepithelial dysplasia) Polyhydramnios affecting Substance use Supervision of high risk , antepartum Tobacco use LGSIL (low grade squamous intraepithelial dysplasia) Non-reactive NST (non-stress test) Polyhydramnios affecting Positive GBS test Substance use Supervision of high risk , antepartum Tobacco use LGSIL (low grade squamous intraepithelial dysplasia) Non-reactive NST (non-stress test) Polyhydramnios affecting Positive GBS test Substance use Supervision of high risk , antepartum Tobacco use LGSIL (low grade squamous intraepithelial dysplasia) Non-reactive NST (non-stress test) Polyhydramnios affecting Positive GBS test Substance use Supervision of high risk , antepartum Tobacco use LGSIL (low grade squamous intraepithelial dysplasia) Non-reactive NST (non-stress test) Polyhydramnios affecting Positive GBS test Substance use Supervision of high risk , antepartum Tobacco use delivery delivered LGSIL (low grade squamous intraepithelial dysplasia) Arrest of dilation, delivered, current hospitalization Encounter for induction of labor Non-reactive NST (non-stress test) Polyhydramnios affecting Positive GBS test Substance use Supervision of high risk , antepartum Tobacco use Variable heart rate decelerations, antepartum delivery delivered History of gestational diabetes Postop check Routine Follow-Up Chief Complaint Admit Date 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) August 11, 2024 9 :18am E-ORDER August 25, 2024 2 :14pm Sore throat September 07, 2024 8:11am Voice hoarseness September 15, 2024 11:06am New OB, LMP 1/4, SARA 04/28/25 September 20, 2024 10:10am Reason for Visit Admit Date Encounter for routine gynecological exam ination August 11, 2024 9:18am Laryngitis September 07, 2024 8:11am Sore throat September 07, 2024 8:11am Acute laryngitis September 15, 2024 11:06am Current every day vaping September 20, 2024 10:10am Hx of gestational diabetes i n prior , currently September 20, 2024 10:10am LGSIL (low grade squamous intraepithelia l dysplasia) September 20, 2024 10:10am Marijuana smoker in remission September 20, 2024 10:10am Missed September 20, 2024 10:1 0am Obesity affecting September 20 025 10:10am September 20, 2024 10:1 0am Previous section September 20 10:10am Missed September 21, 2024 12:1 9pm Chief Complaint Admit Date E-ORDER August 25, 2024 2 :14pm Sore throat September 07, 2024 8:11am Voice hoarseness September 15, 2024 11:06am New OB, LMP 1/4, SARA 04/28/25 September 20, 2024 10:10am 2 wk Suction D&C October 06, 2024 3:2 3pm E-ORDER December 05, 2024 8:29a m possible miscarriage/ectopic December 07, 025 3:24pm Reason for Visit Admit Date Laryngitis September 07, 2024 8:11am Sore throat September 07, 2024 8:11am Acute laryngitis September 15, 2024 11:06am Current every day vaping September 20, 2024 10:10am Hx of gestational diabetes i n prior , currently September 20, 2024 10:10am LGSIL (low grade squamous intraepithelia l dysplasia) September 20, 2024 10:10am Marijuana smoker in remission September 20, 2024 10:10am Missed September 20, 2024 10:1 0am Obesity affecting September 20, 025 10:10am September 20, 2024 10:1 0am Previous section September 20 10:10am Missed September 21, 2024 12:1 9pm Status post dilation and curettage October 06, 2024 3:23pm Incomplete December 07, 2024 3:24p m Chief Complaint Admit Date E-ORDER August 25, 2024 2 :14pm Sore throat September 07, 2024 8:11am Voice hoarseness September 15, 2024 11:06am New OB, LMP 1/4, SARA 04/28/25 September 20, 2024 10:10am 2 wk Suction D&C October 06, 2024 3:2 3pm E-ORDER December 05, 2024 8:29a m possible miscarriage/ectopic December 07, 2 025 3:24pm Miscarriage FU *per SM December 14, 2024 11 :37am Chief Complaint Admit Date Voice hoarseness September 15, 2024 11:06am New OB, LMP 1/4, SARA 04/28/25 September 20, 2024 10:10am 2 wk Suction D&C October 06, 2024 3:2 3pm E-ORDER December 05, 2024 8:29a m possible miscarriage/ectopic December 07, 2 025 3:24pm Miscarriage FU *per SM December 14, 2024 11 :37am INT LAB ORDERS January 05, 2025 2:53 pm Reason for Visit Admit Date Acute laryngitis September 15, 2024 11:06am Current every day vaping September 20, 2024 10:10am Hx of gestational diabetes i n prior , currently September 20, 2024 10:10am LGSIL (low grade squamous intraepithelia l dysplasia) September 20, 2024 10:10am Marijuana smoker in remission September 20, 2024 10:10am Missed September 20, 2024 10:1 0am Obesity affecting September 20 10:10am September 20, 2024 10:1 0am Previous section September 20 10:10am Missed September 21, 2024 12:1 9pm Status post dilation and curettage October 06, 2024 3:23pm Incomplete December 07, 2024 3:24p m History of recurrent miscarriages December 142024 11:37am Incomplete December 14, 2024 11:37 am Summary Purpose Family History No Family History Records Found Relationship Condition Age at Onset Recorded Date/T ramiro father Kidney disorder 48 Advance Directives No Advanced Directives Records Found Advance Directive Response Recorded Date/ Time Living Will No May 17 7:57pm Power of Pole Climber No May 17, 2023 7:57pm Advance Directive Response Recorded Date/ Time Living Will No May 17 6:57pm Power of Pole Climber No May 17, 2023 6:57pm Advance Directive Response Recorded Date/ Time Living Will No May 17 6:57pm Power of Pole Climber No May 17, 2023 6:57pm Living Will No September 20, 2024 2:36pm Power of Pole Climber No September 20 2:36pm Advance Directive Response Recorded Date/ Time Living Will No May 17 7:57pm Power of Pole Climber No May 17, 2023 7:57pm Living Will No September 20, 2024 3:36pm Power of Pole Climber No September 20 3:36pm Advance Directive Response Recorded Date/ Time Living Will No September 20, 2024 3:36pm Do you have a Healthcare Power of Pole Climber? No September 20, 2024 3:36pm Additional Source Comments Goals (unrecognized section and content) Goals may be documented in a n alternate sectionGoals may be documented in an alternate sectionGoals may be documented in an alternate sectionGoals may be documented in an alternate sectionGoals may be documented in an alternate sectionGoals may be documented in an alternate section Care Teams (unrecognized sec tion and content) Team Status: Active Member Role Status Dates No Primary Care Physician Primary Care Provider Active Team Status: Inactive Member Role Status Dates No Primary Care Physician Primary Care Provider, Refer ring Provider Active Romero Trinidad CNM Attending Provider Active Team Status: Inactive Member Role Status Dates No Primary Care Physician Primary Care Provider Active Romero Trinidad CNM Attending Provider Active Team Status: Inactive Member Role Status Dates No Primary Care Physician Primary Care Provider, Refer ring Provider Active Dr. Gilma Bliss MD Attending Provider Active Team Status: Inactive Member Role Status Dates No Primary Care Physician Primary Care Provider, Refer ring Provider Active Dr. Julita Hurley DO Attending Provider Activ e Team Status: Inactive Member Role Status Dates No Primary Care Physician Primary Care Provider Active Romero Trinidad CNM Attending Provider, Referring Pr ovider Active Team Status: Inactive Member Role Status Dates No Primary Care Physician Primary Care Provider, Refer ring Provider Active Ling Daley CHIEF WHEELAGE CLERK, CHIEF WHEELAGE CLERK-C Attending Provider Active Team Status: Inactive Member Role Status Dates No Primary Care Physician Primary Care Provider, Refer ring Provider Active Arianna Copeland CNM Attending Provider Active Team Status: Inactive Member Role Status Dates No Primary Care Physician Primary Care Provider Active Dr. Julita Hurley DO Attending Provider, Refe rring Provider Active Team Status: Active Member Role Status Dates No Primary Care Physician Primary Care Provider Active Arianna Copeland CNM Attending Provider, Referring Provider, Other Provider Active Team Status: Inactive Member Role Status Dates No Primary Care Physician Primary Care Provider Active Dr. Gilma Bliss MD Attending Provider, Referr ing Provider Active Team Status: Inactive Member Role Status Dates No Primary Care Physician Primary Care Provider Active Arianna Copeland CNM Attending Provider, Referring Pro vider Active Team Status: Active Member Role Status Dates No Primary Care Physician Primary Care Provider Active Romero Trinidad CNM Admit Provider, Other Provider A ctive Arianna Copeland CNM Attending Provider Active Team Status: Active Member Role Status Dates No Primary Care Physician Primary Care Provider Active Dr. Gilma Bliss MD Admit Provid er, Referring Provider, Other Provider Active Ling Daley CHIEF WHEELAGE CLERK, CHIEF WHEELAGE CLERK-C Attending Provider Active Team Status: Active Member Role Status Dates No Primary Care Physician Primary Care Provider Active Dr. Gilma Bliss MD Admit Provid er, Attending Provider, Referring Provider, Other Provider Active Team Status: Inactive Member Role Status Dates No Primary Care Physician Primary Care Provider Active Dr. Gilma Bliss MD Admit Provid er, Attending Provider, Referring Provider Active Team Status: Inactive Member Role Status Dates No Primary Care Physician Primary Care Provider Active Start: August 11, 2024 End: August 11, 2024 No Primary Care Physician Referring Provider Active Start: August 11, 2024 End: August 11, 2024 Arianna Copeland CNM Attending Provider Active S tart: August 11, 2024 End: August 11, 2024 Team Status: Inactive Member Role Status Dates No Primary Care Physician Primary Care Provider Active Start: August 25, 2024 End: August 25, 2024 Dr. Julita Hurley , Attending Provider Activ e Start: August 25, 2024 End: August 25, 2024 Dr. Julita Hurley , Referring Provider Activ e Start: August 25, 2024 End: August 25, 2024 Team Status: Inactive Member Role Status Dates No Primary Care Physician Primary Care Provider Active Start: September 07, 2024 End: September 07, 2024 No Primary Care Physician Referring Provider Active Start: September 07, 2024 End: September 07, 2024 JUNE Lorenzana Attending Provider Active Sta rt: September 07, 2024 End: September 07, 2024 Team Status: Inactive Member Role Status Dates No Primary Care Physician Primary Care Provider Active Start: September 15, 2024 End: September 15, 2024 No Primary Care Physician Referring Provider Active Start: September 15, 2024 End: September 15, 2024 JUNE Maki Attending Provider Active Sta rt: September 15, 2024 End: September 15, 2024 Team Status: Inactive Member Role Status Dates No Primary Care Physician Primary Care Provider Active Start: September 20, 2024 End: September 20, 2024 No Primary Care Physician Referring Provider Active Start: September 20, 2024 End: September 20, 2024 Dr. Julita Hurley , DO Attending Provider Activ e Start: September 20, 2024 End: September 20, 2024 Team Status: Active Member Role Status Dates No Primary Care Physician Primary Care Provider Active Start: September 20, 2024 Dr. Julita Hurley DO Attending Provider Activ e Start: September 20, 2024 Dr. Julita Hurley DO Referring Provider Activ e Start: September 20, 2024 Team Status: Inactive Member Role Status Dates No Primary Care Physician Primary Care Provider Active Start: September 21, 2024 End: September 21, 2024 Dr. Julita Hurley , DO Attending Provider Activ e Start: September 21, 2024 End: September 21, 2024 Dr. Julita Hurley DO Referring Provider Activ e Start: September 21, 2024 End: September 21, 2024 Team Status: Active Member Role Status Dates No Primary Care Physician Primary Care Provider Active Start: September 21, 2024 Dr. Julita Hurley DO Attending Provider Activ e Start: September 21, 2024 Dr. Julita Hurley DO Referring Provider Activ e Start: September 21, 2024 Dr. Julita Hurley DO Other Provider Active Start: September 21, 2024 Team Status: Inactive Member Role Status Dates No Primary Care Physician Primary Care Provider Active Start: September 20, 2024 End: September 20, 2024 Dr. Julita Hurley DO Attending Provider Activ e Start: September 20, 2024 End: September 20, 2024 Dr. Julita Hurley DO Referring Provider Activ e Start: September 20, 2024 End: September 20, 2024 Team Status: Inactive Member Role Status Dates No Primary Care Physician Primary Care Provider Active Start: October 06, 2024 End: October 06, 2024 No Primary Care Physician Referring Provider Active Start: October 06, 2024 End: October 06, 2024 Arianna Copeland CNM Attending Provider Active S tart: October 06, 2024 End: October 06, 2024 Team Status: Inactive Member Role Status Dates No Primary Care Physician Primary Care Provider Active Start: December 05, 2024 End: December 05, 2024 Dr. Julita Hurley , DO Attending Provider Activ e Start: December 05, 2024 End: December 05, 2024 Dr. Julita Hurley , DO Referring Provider Activ e Start: December 05, 2024 End: December 05, 2024 Team Status: Active Member Role Status Dates No Primary Care Physician Primary Care Provider Active Start: December 07, 2024 Dr. Gilma Bliss MD Attending Provider Active Start: December 07, 2024 Dr. Gilma Bliss MD Referring Provider Active Start: December 07, 2024 Team Status: Inactive Member Role Status Dates No Primary Care Physician Primary Care Provider Active Start: December 07, 2024 End: December 07, 2024 No Primary Care Physician Referring Provider Active Start: December 07, 2024 End: December 07, 2024 Dr. Gilma Bliss MD Attending Provider Active Start: December 07, 2024 End: December 07, 2024 Team Status: Inactive Member Role Status Dates No Primary Care Physician Primary Care Provider Active Start: December 07, 2024 End: December 07, 2024 Dr. Gilma Bliss MD Attending Provider Active Start: December 07, 2024 End: December 07, 2024 Dr. Gilma Bliss MD Referring Provider Active Start: December 07, 2024 End: December 07, 2024 Team Status: Inactive Member Role Status Dates No Primary Care Physician Primary Care Provider Active Start: December 14, 2024 End: December 14, 2024 No Primary Care Physician Referring Provider Active Start: December 14, 2024 End: December 14, 2024 Dr. Gilma Bliss MD Attending Provider Active Start: December 14, 2024 End: December 14, 2024 Team Status: Inactive Member Role Status Dates No Primary Care Physician Primary Care Provider Active Start: January 05, 2025 End: January 05, 2025 Dr. Gilma Bliss MD Attending Provider Active Start: January 05, 2025 End: January 05, 2025 Dr. Gilma Bliss MD Referring Provider Active Start: January 05, 2025 End: January 05, 2025 INFORMATION SOURCE (unrecogn ized section and content) DATE CREATED AUTHOR 01/01/[address] [facility] DATE CREATED AUTHOR AUTHOR'S ORGANIZ ATION 04/06/2025 [facility] DATE CREATED AUTHOR AUTHOR'S ORGANIZ ATION 04/06/2025 [facility] FOR RECORDS PERTAINING TO PATIENTS WHO ARE OR HAVE BEEN ENROLLED IN A CHEMICAL DEPENDENCY/SUBSTANCEABUSE PROGRAM, SOME INFORMATION MAY BE OMITTED. This clinical summary was aggregated from multiple sources. Caution should be exercised in using it in the provision of clinical care. This summary normalizes information from multiple sources, and as a consequence, information in this document may materially change the coding, format and clinical context of patient data. In addition, data may be omitted in some cases. CLINICAL DECISIONS SHOULD BE BASED ON THE PRIMARY CLINICAL RECORDS. [employer] provides no warranty or guarantee of the accuracy or completeness of information in this document.
[2025-05-05 09:43] LABS: hCG Titer Quant., Serum 142614 mIU/mL (<9 non-preg)
== END | disposition home or self-care (01) ==
LOC: LAB 07:39
PROVIDERS: Referring Provider Obstetrics & Gynecology; Visit Provider Obstetrics & Gynecology
DX: O26.20 Pregnancy care for patient with recurrent pregnancy loss, unspecified trimester (principal); Z3A.00 Weeks of gestation of pregnancy not specified
CPT/HCPCS: 36415; 84702

== ENCOUNTER → 2025-05-10 | Outpatient (CLI) | payer BC, SELFPAY ==
--- NOTE | 2025-05-10 14:17 | US_ITS ---
PROCEDURE: TRANSVAGINAL W/PREG US 05/10/2025 REASON FOR EXAM: VIABILITY TECHNIQUE: Procedure Code: [id number] Modality: US Procedure: TRANSVAGINAL W/PREG US FINDINGS The uterus measures 13.5 x 8.3 x 6.6 cm and contains a single intrauterine gestational sac. Mean sac diameter measures 4.9 mm corresponding to a gestational age of approximately 10 weeks 4 days. The yolk sac is visualized measuring 0.5 cm. An embryo is visualized with a crown-rump length of 2.5 mm corresponding to an estimated gestational age of 9 weeks 1 day. heart rate is identified at 144 beats per minute. No subchorionic hemorrhage is seen. The cervix is closed. No free fluid is present in the cul-de-sac. The right ovary measures 3.0 x 2.3 x 2.2 cm and is normal in appearance without adnexal mass. The left ovary measures 2.9 x 2.2 x 1.9 cm and is normal in appearance without adnexal mass. No adnexal cysts greater than 2 cm are identified. US/Transvaginal w/Preg US IMPRESSION: Single live intrauterine with estimated gestational age of approximat keira 9 weeks 6 days by ultrasound. cardiac activity present at 144 beats per minute. No adnexal masses or free fluid. Findings consistent with a viable first-trimester intrauterine . Reading Location: [id number]
== END | disposition home or self-care (01) ==
LOC: US 14:16
PROVIDERS: Referring Provider Obstetrics & Gynecology; Visit Provider Obstetrics & Gynecology
DX: O26.20 Pregnancy care for patient with recurrent pregnancy loss, unspecified trimester (principal); Z3A.00 Weeks of gestation of pregnancy not specified
CPT/HCPCS: 76817

== ENCOUNTER → 2025-05-18 | Outpatient (CLI) | payer BC, SELFPAY ==
[2025-05-18 13:48] LABS: Hematocrit 40.0 % (37-47); Hemoglobin 13.7 g/dL (12.0-15.0); Immature Granulocytes Count 0.100 X10^3/uL (0.0-0.0); Mean Corp Hgb Conc 34.3 g/dL (32-36); Mean Corpuscular Volume 86.2 fL (81-99); Mean Platelet Vol. 9.7 fl (6.2-12.0); NRBC Flagged by Analyzer 0 % (0-5); Platelet Count 252 K/mm3 (150-450); RBC Distribution Width CV 13.0 % (11.6-14.6); RBC Distribution Width SD 40.5 fl (35.1-43.9); Red Blood Count 4.64 M/mm3 (4.2-5.4); White Blood Count 10.0 K/mm3 (4.4-11.0)
[2025-05-18 14:34] LABS: HIV Nonreactive (Nonreactive); Hepatitis B Surface Antigen Nonreactive (Nonreactive); Hepatitis C Antibody Nonreactive (Nonreactive); Syphilis Antibodies Nonreactive (Nonreactive)
[2025-05-18 16:55] LABS: Barbiturate Urine NEGATIVE (< 200 ng/mL); Benzodiazepine Urine NEGATIVE (< 200 ng/mL); PCP Urine NEGATIVE (< 25 ng/mL); THC Urine NEGATIVE (< 50 ng/mL)
== END | disposition home or self-care (01) ==
LOC: BWCLAB 13:34
PROVIDERS: Visit Provider Advanced Practice Midwife
DX: O99.210 Obesity complicating pregnancy, unspecified trimester (principal); Z3A.00 Weeks of gestation of pregnancy not specified; F12.90 Cannabis use, unspecified, uncomplicated
CPT/HCPCS: 36415; 80307; 83036; 85025; 86703; 86762; 86780; 86803; 86850; 86900; 86901; 87086; 87088; 87340; 87491; 87591